=== PATIENT | female | born 1955 | race Caucasian/White ===

== ENCOUNTER 2018-02-23 09:22 | Emergency (ER) | payer MEDICAID, SELFPAY ==
[2018-02-23 09:23] VITALS: BP 150/83; PULSE 73; RESP 15; TEMP 36.3; O2SAT 99; BMI 29.5
--- NOTE | 2018-02-23 09:35 | CT_ITS ---
STUDY: CT ABDOMEN AND PELVIS WITHOUT CONTRAST REASON FOR EXAM: Female, 62 years old. Left flank pain. RADIATION DOSAGE (If Supplied By Facility): CTDIvol = ( 14.56 ) mGy, DLP = ( 687.23 ) mGycm TECHNIQUE: Transaxial images were obtained from the dome of the diaphragm to the symphysis pubis without oral contrast, and without intravenous contrast. Sagittal and coronal images were reconstructed. Individualized dose optimization techniques were used for this CT. COMPARISON: None. FINDINGS: Minimal increased linear markings at the right lung base suggestive of bibasilar atelectasis and/or scarring. Calcified granuloma in the right lower lobe. The visualized portions of the heart are within normal limits. Normal liver. The patient is status post cholecystectomy. Normal spleen. Inflammatory changes are seen within the mesenteric fat at the level of the pancreas. This inflammatory change is seen adjacent to the greater curvature of the stomach. This may represent changes compatible with pancreatitis or possibly gastritis with increased markings in the surrounding peritoneal fat. Clinical correlation is recommended. Normal bilateral adrenal glands. Normal right kidney. Normal left kidney. Normal visualized stomach. Normal small intestine. There are multiple sigmoid colonic diverticula consistent with diverticulosis. There is also evidence of diverticulosis involving the right hemicolon. The appendix is visualized and appears normal. Normal abdominal aorta. Normal inferior vena cava. Normal retroperitoneum. Normal urinary bladder. There is a left-sided inguinal hernia containing adipose tissue. There are degenerative changes of the visualized lumbar spine. CT/Abdomen/Pelvis without Cont IMPRESSION: Diverticulosis of the descending colon and sigmoid colon. Inflammatory changes seen in the region of the pancreas adjacent to the greater curvature of the stomach. This may represent changes secondary to pancreatitis. Clinical correlation is recommended. Electronically Signed: Chidi Garibay MD at 11:15 EST Tel [phone], Service support ,
--- NOTE | 2018-02-23 09:36 | ED.VISSUMM ---
- ER Visit Summary Date of Service: 02/23/18 Chief Complaint: Left abdominal and flank pain History of Present Illness: The patient is a 62 F who presents with 4 days of left-sided flank and abdominal pain. Patient states she has been having episodes of this pain intermittently for a year, and they normally last 1-2 days and resolve spontaneously. She has had 5-6 episodes in the last year. However this time her symptoms has lasted for 4 days. Pain is in the left flank and radiates around into the left abdomen. Patient has associated nausea but no vomiting. No diarrhea. No urinary symptoms. She has a normal bowel movement for a few days, and yesterday had a very small hard bowel movement. Patient tried a laxative without any relief. She has history of spina bifida but denies any issues with bowel or bladder function. Denies tobacco or alcohol use. Physical Examination: Vital signs: afebrile, hemodynamically stable, no hypoxia on room air General: well nourished, well developed, in no distress Skin: warm, dry, no rash, no pallor HEENT: normocephalic and atraumatic; PERRL, EOMI, moist mucous membranes Cardiovascular: regular rate and rhythm without murmurs, no peripheral edema, 2+ pulses all distal extremities Respiratory: No increased work of breathing, lungs are clear to auscultation bilaterally, no rales, rhonchi or wheezing Abdominal: Abdomen is soft, tender in the epigastrium, left abdomen, upper greater than lower, with normoactive bowel sounds, no guarding or rebound, no masses, positive left-sided CVA tenderness. No rash. MSK: Moves all extremities, no deformities, normal strength Neuro: Awake and alert, oriented ?4. No facial droop, sensation and motor function intact and symmetric Test Results: Abnormal Lab Results 02/23/18 02/23/18 02/23/18 09:45 09:45 09:58 WBC 10.2 RBC 5.53 H Hgb 14.0 Hct 44.7 MCV 80.8 L MCH 25.3 L MCHC 31.3 L RDW 15.3 H RDW Differential 45.4 H Plt Count 283 MPV 12.5 H Immature Gran % (Auto) 0.200 Neut % (Auto) 68.8 Lymph % (Auto) 20.0 [place] % (Auto) 8.5 Eos % (Auto) 2.1 Baso % (Auto) 0.4 Absolute Neuts (auto) 7.0 Absolute Lymphs (auto) 2.04 Total Counted Not Reportable Sodium 139 Potassium 4.6 Chloride 107 Carbon Dioxide 25.0 Anion Gap 7 BUN 14 Creatinine 0.86 Estim Creat Clear Calc 73.35 Est GFR (MDRD) Af Amer 86 Est GFR (MDRD) Non-Af 71 BUN/Creatinine Ratio 16.3 Glucose 104 Calcium 9.3 Total Bilirubin 0.80 AST 20 ALT 19 Alkaline Phosphatase 85 Total Protein 8.3 H Albumin 4.0 Globulin 4.3 H Albumin/Globulin Ratio 0.9 Lipase 159 Urine Color Yellow Urine Clarity Sl. Cloudy Urine pH 7.0 Ur Specific [place] 1.010 Urine Protein Negative Urine Glucose (UA) Normal Urine Ketones Negative Urine Occult Blood 10 H Urine Nitrite Negative Urine Bilirubin Negative Urine Urobilinogen Normal Ur Leukocyte Esterase 100 H Urine RBC 0-5 SEEN Urine WBC 10-25 SEEN Ur Squamous Epith Cells 0-5 SEEN Urine Bacteria 1+ Urine Mucus 0 SEEN Clinical Impression(s) from Imaging Studies Abdomen/Pelvis CT 02/23/18 09:35 IMPRESSION: Diverticulosis of the descending colon and sigmoid colon. Inflammatory changes seen in the region of the pancreas adjacent to the greater curvature of the stomach. This may represent changes secondary to pancreatitis. Clinical correlation is recommended. Electronically Signed: Chidi Garibay MD at 11:15 EST Tel [phone], Service support , Gallbladder Ultrasound 02/23/18 11:30 IMPRESSION: Nonvisualization of the gallbladder. Mild dilatation of the common bile duct. Calcific densities seen within the pancreas. Electronically Signed: Chidi Garibay MD at 14:07 EST Tel [phone], Service support , Medications Given Discontinued Medications Al Hydroxide/Mg Hydroxide (Mylanta Ii) 30 ml PO X1 ONE Stop: 02/23/18 14:36 Last Admin: 02/23/18 14:46 Dose: 30 ml Lidocaine HCl (Xylocaine Viscous) 15 ml PO X1 ONE Stop: 02/23/18 14:36 Last Admin: 02/23/18 14:46 Dose: 15 ml Morphine Sulfate () 4 mg IV X1 ONE Stop: 02/23/18 11:23 Last Admin: 02/23/18 11:27 Dose: 4 mg Morphine Sulfate () 4 mg IV X1 ONE Stop: 02/23/18 13:37 Last Admin: 02/23/18 13:43 Dose: 4 mg Ondansetron HCl (Zofran) 4 mg IV X1 ONE Stop: 02/23/18 11:23 Last Admin: 02/23/18 11:27 Dose: 4 mg Emergency Department Course and Treatment: Patient was offered and declined pain medication initially. However her pain became intolerable, and she was given morphine and Zofran. Patient is complaining of left lower abdominal and back pain, however her tenderness is in the left upper quadrant. Labs showed no leukocytosis, no electrolyte derangements, no hepatic dysfunction, and a normal lipase. Urinalysis was consistent with UTI, although patient did not have urinary symptoms. Negative for hematuria. A CT flank showed no kidney stones. It did show inflammatory changes around the pancreas and the stomach, concerning for pancreatitis versus gastritis. Gallbladder was not visualized. Patient states she never had a cholecystectomy, and thus right upper quadrant ultrasound was performed to better visualize the gallbladder and evaluate for any possible cholecystitis. Right upper quadrant ultrasound also showed absence of the gallbladder. Patient required second dose of morphine, still with only modest improvement in her pain. Patient has no history of pancreatitis, and with a normal lipase and symptoms for 4 days, it is unlikely pancreatitis. She was given a GI cocktail and had almost complete resolution of her symptoms, making gastritis the most likely cause of the inflammatory changes. Patient was discussed with Dr. Meza, will see her in the office tomorrow. Patient is to call first thing in the morning to get an appointment for tomorrow. Patient was given a prescription for omeprazole and sucralfate for further symptom control as well as Zofran for any further nausea. Because of the urinary findings, patient was started on Keflex. She was discharged home with her symptoms greatly improved and no further tenderness on exam. Treatment Plan: [] Disposition: [] Impression: Acute gastritis, UTI This note was generated with [employer] software. It may contain incorrect words, spelling, and punctuation that were not noted in review of the chart prior to signing ED Disposition - Plan for ED Patient: Disposition: Home or Assisted Living Chief Complaint: Abd Pain Instructions: ED PUD Vs Gastritis Prescriptions: Ondansetron [Zofran Odt] 4 mg PO Q8H PRN PRN #10 tab PRN Reason: Nausea Cephalexin [Keflex] 500 mg PO BID #14 cap RX: Omeprazole 20 mg PO BID #28 tablet. RX: Sucralfate 1 gm PO 4X/DAY #400 ml Referrals: Glenn Meza MD [STAFF PHYSICIAN] - 1 Day Care Physician,No Primary [Primary Care Provider] - Additional Instructions: Call Dr. Meza's office first thing in the morning and let them know that you were seen in the emergency department, we spoke to Dr. Meza, and he requested to be scheduled for an appointment tomorrow. Take the medications as prescribed. Avoid aspirin, Motrin (ibuprofen), naproxen (Aleve), alcohol and tobacco. If you have any worsening of your condition or any new concerning symptoms, please return immediately to the emergency department for another evaluation.
[2018-02-23 10:05] LABS: Mucous, Urine 0 SEEN /hpf (<or=2+)
[2018-02-23 10:08] LABS: Absolute Lymphocyte Count 2.04 X10^3/ul (0.83-4.51); Basophil# 0.04 X10^3/uL; Basophil% 0.4 % (0-1); Eosinophil# 0.21 X10^3/uL; Eosinophils% 2.1 % (0-5); Hematocrit 44.7 % (37-47); Lymphocyte # 2.04 X10^3/ul (4.0); Mean Corp Hgb Conc 31.3 g/gl (32-36); Mean Corpuscular Hgb 25.3 pg (27.0-32.0); Mean Corpuscular Volume 80.8 fL (81-99); Mean Platelet Vol. 12.5 fl (6.2-12.0); Monocyte# 0.87 X10^3/uL; Monocyte% 8.5 % (0-10); Neutrophil # 7.01 X10^3/uL (2.7-7.7); Neutrophil % 68.8 % (47-70); POSITIVE COUNT NO; POSITIVE DIFFERENTIAL NO; POSITIVE MORPHOLOGY NO; Platelet Count 283 K/mm3 (150-450); RBC Distribution Width CV 15.3 % (11.6-14.6); RBC Distribution Width SD 45.4 fl (35.1-43.9); Red Blood Count 5.53 M/mm3 (4.2-5.4); White Blood Count 10.2 K/mm3 (4.4-11.0)
[2018-02-23 10:09] LABS: Color, Urine Yellow (Yellow); Glucose, Dipstick Normal (Normal); Ketone-Dipstick Negative (Negative); Leukocyte Esterase-Dipstick 100 /ul (Negative); Nitrite-Dipstick Negative (Negative); Occult Blood-Urine 10 /ul (Negative); Protein-Dipstick Negative (Negative); Urine Bilirubin Dipstick Negative (Negative); Urine Clarity Sl. Cloudy (Clear); Urine Urobilinogen Normal (Normal)
[2018-02-23 10:15] LABS: Bacteria 1+ /hpf (None Seen); Red Blood Cells-Urine 0-5 SEEN /hpf (0-5); Squamous Epithelial Cells - UA 0-5 SEEN /hpf (5-10); White Blood Cells 10-25 SEEN /hpf (0-5)
[2018-02-23 10:22] LABS: ALB/GLOB Ratio 0.9 RATIO (0.9-2.4); AST(SGOT) 20 U/L (15-37); Alanine Aminotransfer ALT/SGPT 19 U/L (13-56); Alkaline Phosphatase 85 U/L (45-117); Anion Gap 7 (5-15); BUN 14 mg/dL (7-18); BUN/Creat Ratio 16.3 RATIO (10-20); Calcium,Total 9.3 mg/dL (8.5-10.1); Chloride 107 mmol/L (98-107); Creatinine, Serum 0.86 mg/dL (0.55-1.02); EST Glomerular Filtration Rate 71 mL/min (>60); Est Glom Filt Rate - Afr Amer 86 mL/min (>60); Estimated Creatinine Clearance 73.35 ml/min; Globulin 4.3 g/dL (2.2-4.2); Glucose 104 mg/dL (74-106); Lipase 159 U/L (73-393); Potassium 4.6 mmol/L (3.5-5.1); Protein, Total 8.3 g/dL (6.4-8.2); Sodium Level 139 mmol/L (136-145)
[2018-02-23 11:02] VITALS: BP 108/97; PULSE 70; RESP 14; O2SAT 98
[2018-02-23] MEDS: Morphine 4 MG/ML Syringe IV ×2 (11:27→13:43)
[2018-02-23] MEDS: Ondansetron 4 MG/2 ML Vial IV (11:27)
--- NOTE | 2018-02-23 11:30 | US_ITS ---
STUDY: ABDOMINAL ULTRASOUND - RIGHT UPPER QUADRANT REASON FOR VISIT: Female, 62 years old. Epigastric pain. TECHNIQUE: Ultrasound evaluation of the right upper quadrant was performed with real-time and static hagen-scale imaging. TECHNICAL QUALITY: Limited. Examination limited by bowel gas. COMPARISON: None. FINDINGS: Liver: The liver measures 16.2 cm. There is normal echogenicity of the liver. The bile ducts are within normal limits. There is hepatic color flow. The direction of portal flow is hepatopetal. There is no demonstrated mass lesion. Gallbladder: The gallbladder is not visualized. Common Bile Duct (C.B.D.): The common bile duct measures 6.7 mm. Pancreas: Normal size of the head, body and tail of the pancreas. There is normal echogenicity of the pancreas. Pancreatic calcifications. Right Kidney: Normal size of the right kidney. The right kidney measures 9.8 cm x 5.15 x 4.6 cm. Normal renal cortex. The right cortex measures 1.1 cm. There is no demonstrated renal mass or cyst. There is no right hydronephrosis. US/Gallbladder IMPRESSION: Nonvisualization of the gallbladder. Mild dilatation of the common bile duct. Calcific densities seen within the pancreas. Electronically Signed: Chidi Garibay MD at 14:07 EST Tel [phone], Service support ,
[2018-02-23 13:27] VITALS: BP 115/64; PULSE 67; RESP 15; O2SAT 96
[2018-02-23] MEDS: Mag Hydrox/Al Hydrox/Simeth 30 ML UDC PO (14:46)
[2018-02-23 15:00] VITALS: BP 121/60; PULSE 60; RESP 16; O2SAT 96
--- NOTE | 2018-02-23 15:31 | ED.DEP ---
ED Disposition - Plan for ED Patient: Disposition: Home or Assisted Living Chief Complaint: Abd Pain Instructions: ED PUD Vs Gastritis Prescriptions: Ondansetron [Zofran Odt] 4 mg PO Q8H PRN PRN #10 tab PRN Reason: Nausea Cephalexin [Keflex] 500 mg PO BID #14 cap Omeprazole 20 mg PO BID #28 tablet. Sucralfate 1 gm PO 4X/DAY #400 ml Referrals: Care Physician,No Primary [Primary Care Provider] - Glenn Meza MD [STAFF PHYSICIAN] - 1 Day Additional Instructions: Call Dr. Meza's office first thing in the morning and let them know that you were seen in the emergency department, we spoke to Dr. Meza, and he requested to be scheduled for an appointment tomorrow. Take the medications as prescribed. Avoid aspirin, Motrin (ibuprofen), naproxen (Aleve), alcohol and tobacco. If you have any worsening of your condition or any new concerning symptoms, please return immediately to the emergency department for another evaluation.
[2018-02-23 15:49] VITALS: BP 115/64
== END 2018-02-23 15:53 | disposition home or self-care (01) ==
PROVIDERS: Emergency Provider Emergency Medicine
DX: K29.00 Acute gastritis without bleeding (principal); N39.0 Urinary tract infection, site not specified; K57.30 Diverticulosis of large intestine without perforation or abscess without bleeding
CPT/HCPCS: 74176; 76705; 80053; 81001; 83690; 85025; 87086; 87088; 96374; 96375; 96376; 99284; A4216; J2405

== ENCOUNTER 2018-03-01 09:31 | Day surgery (SDC) | payer MEDICAID, SELFPAY ==
[2018-02-24 12:53] VITALS: BMI 29.5
--- NOTE | 2018-03-01 | EGD_PTH ---
PATIENT: SALINA ARAGON LOC: EN U#:[id number] AGE/SX: 62/F ROOM: RE03/01/[address]: [address]. Glenn Meza MD : 1955 BED: DIS: 03/01/2018 SPEC #: [id number] RECD: 03/01/18 11:15 STATUS: MELA AC #: [id number] KEVIN: 03/01/18 00:[address]: Glenn Meza DEPT: SURGICAL PATHOLOGY RECD BY: Efrain Richards ENTERED: 03/01/18 11:16 SP TYPE: EGD BIOPSY OTHR DR: No Primary Care Phys Tissues: A - Duodenum, NOS B - Gastric mucous membrane Procedures: Surgery Specimen Level IV HEADER OPERATION: [place] [place] DIAGNOSIS: Left upper quadrant abdominal pain TISSUE SUBMITTED: A - Duodenal biopsy, B - Antral biopsy and H. pylori MICROSCOPIC DIAGNOSIS A. Duodenum, biopsy: Minimal nonspecific chronic inflammation. B. Gastric antrum, biopsy: Moderate chronic gastritis. AM:evita 03/02/18 COMMENT B. The results of immunohistochemistry for Helicobacter pylori will be reported separately ([id number]). MICROSCOPIC DESCRIPTION Slides are reviewed. GROSS DESCRIPTION A - Received in fixative is one container labeled with the patient's name and designated duodenal biopsy. The specimen consists of one irregular fragment of light fink soft tissue that measures 0.4 x 0.2 x 0.1 cm. The specimen is totally submitted in one cassette. B - Received in fixative is one container labeled with the patient's name and designated antral biopsy. The specimen consists of one irregular fragment of light fink soft tissue that measures 0.5 x 0.2 x 0.1 cm. The specimen is totally submitted in one cassette. / SRINI:evita 03/01/18 TC:3 CPT: 62616 x2
[2018-03-01 09:50] VITALS: BP 111/71; PULSE 78; RESP 18; TEMP 37.3; O2SAT 98; BMI 29.3
[2018-03-01 10:45] VITALS: BP 105/58; BP 111/71; PULSE 81; RESP 16; TEMP 36.2; O2SAT 92
--- NOTE | 2018-03-01 10:45 | IMM_PTH ---
PATIENT: SALINA ARAGON LOC: EN U#:[id number] AGE/SX: 62/F ROOM: RE03/01/[address]: [address]. Glenn Meza MD : 1955 BED: DIS: 03/01/2018 SPEC #: [id number] RECD: 03/01/18 11:37 STATUS: MELA REQ #: [id number] KEVIN: 03/01/18 10:[address]: Glenn Meza DEPT: IMMUNOHISTOCHEMISTRY RECD BY: Christine Vazquez ENTERED: 03/01/18 11:38 SP TYPE: IMMUNO OTHR DR: No Primary Care Phys Tissues: B - Stomach, NOS Procedures: H Pylori (initial) PHYSICIAN & INSTITUTION [place] [id number] SPECIMEN INFORMATION: Tissue Source: A - Antral biopsy Clinical Info: Left upper quadrant abdominal pain Specimen Number: [id number] CPT code: 50715 METHODOLOGY: Deparaffinized sections of prefer/formalin-fixed tissue or PAP/DQ stained slides are incubated with monoclonal/polyclonal antibodies/oligonucleotide probes. Localization is made via biotin free immunoperoxidase method. Appropriate controls are performed and reacted as expected. Results on target cell population are indicated in the following table: RESULTS: ANTIBODY / CLONE RESULT Block A H Pylori (polyclonal) negative These tests were developed and their performance characteristics determined by [facility]. They may not have been cleared or approved by the U.S. Food and Drug Administration. The FDA has determined that such clearance or approval is not necessary. INTERPRETATION: A. Antral biopsy: Negative for Helicobacter pylori organisms. AM:evita 03/02/18
--- NOTE | 2018-03-01 10:46 | OP.ENDO_ITS ---
Patient Name: Concepcion Gotti Procedure Date: 03/01/2018 10:19 AM Date of : 1955 Age: 62 Procedure: Upper GI endoscopy Indications: Abdominal pain in the left upper quadrant Providers: Glenn Meza MD Medicines: See the Anesthesia note for documentation of the administered medications Patient Profile: This is a 62 year old female. Refer to note in patient chart for documentation of history and physical. Complications: No immediate complications. Procedure: Pre-Anesthesia Assessment: - Prior to the procedure, a History and Physical was performed, and patient medications and allergies were reviewed. The patient's tolerance of previous anesthesia was also reviewed. The risks and benefits of the procedure and the sedation options and risks were discussed with the patient. All questions were answered, and informed consent was obtained. Prior Anticoagulants: The patient has taken no previous anticoagulant or antiplatelet agents. ASA Grade Assessment: II - A patient with mild systemic disease. After reviewing the risks and benefits, the patient was deemed in satisfactory condition to undergo the procedure. After obtaining informed consent, the endoscope was passed under direct vision. Throughout the procedure, the patient's blood pressure, pulse, and oxygen saturations were monitored continuously. The gastroscope was introduced through the mouth, and advanced to the second part of duodenum. The upper GI endoscopy was accomplished without difficulty. The patient tolerated the procedure well. Scope In: 10:37:55 AM Scope Out: 10:41:56 AM Total Procedure Duration Time 0 hours 4 minutes 1 second Findings: A medium-sized hiatal hernia was present. No biopsies or other specimens were collected for this exam. A medium-sized hiatal hernia was found. The proximal extent of the gastric folds (end of tubular esophagus) was 36 cm from the incisors. The hiatal narrowing was 40 cm from the incisors. The Z-line was 36 cm from the incisors. One non-bleeding cratered gastric ulcer with no stigmata of bleeding was found in the prepyloric region of the stomach. The lesion was 10 mm in largest dimension. Biopsies were taken with a cold forceps for Helicobacter pylori testing. Diffuse moderately erythematous mucosa without active bleeding and with stigmata of bleeding was found in the first portion of the duodenum. Biopsies were taken with a cold forceps for histology. Impression: - Medium-sized hiatal hernia. No specimens collected. - Medium-sized hiatal hernia. - Non-bleeding gastric ulcer with no stigmata of bleeding. Biopsied. - Erythematous duodenopathy. Biopsied. Recommendation: - Await pathology results. - Repeat upper endoscopy in 6 weeks for surveillance. - Return to my office in 1 week. - Continue present medications. Procedure Code(s): --- Professional --- 86265, Esophagogastroduodenoscopy, flexible, transoral; with biopsy, single or multiple Diagnosis Code(s): --- Professional --- K44.9, Diaphragmatic hernia without obstruction or gangrene K25.9, Gastric ulcer, unspecified as acute or chronic, without hemorrhage or perforation K31.89, Other diseases of stomach and duodenum R10.12, Left upper quadrant pain CPT copyright 2017 [employer]. All rights reserved. The codes documented in this report are preliminary and upon oliver filter operator review may be revised to meet current compliance requirements. MD Glenn Baez MD 03/01/2018 10:45:53 AM This report has been signed electronically. Number of Addenda: 0 Note Initiated On: 03/01/2018 10:19 AM
[2018-03-01 10:50] VITALS: BP 111/71; BP 91/73; PULSE 81; RESP 14; O2SAT 92
[2018-03-01 10:55] VITALS: BP 108/69; BP 111/71; PULSE 83; RESP 14; TEMP 36.3; O2SAT 95
[2018-03-01 11:47] VITALS: BP 111/71
== END 2018-03-01 11:47 | disposition home or self-care (01) ==
LOC: EN 09:32 → AC 09:34
PROVIDERS: Referring Provider Surgery; Visit Provider Surgery
PROC: 0DJ08ZZ Inspection of Upper Intestinal Tract, Via Natural or Artificial Opening Endoscopic (ICD-10-PCS; CPT 43235; principal; 2018-03-01 10:40)
DX: K29.50 Unspecified chronic gastritis without bleeding (principal); K25.9 Gastric ulcer, unspecified as acute or chronic, without hemorrhage or perforation; K44.9 Diaphragmatic hernia without obstruction or gangrene; K31.89 Other diseases of stomach and duodenum; K21.9 Gastro-esophageal reflux disease without esophagitis; R10.12 Left upper quadrant pain; Z87.891 Personal history of nicotine dependence
CPT/HCPCS: 43239; 88305; 88342; J7120

== ENCOUNTER 2018-05-19 09:07 | Day surgery (SDC) | payer MEDICAID, SELFPAY ==
[2018-04-13 09:28] VITALS: BMI 29.3
[2018-05-19 09:26] VITALS: BP 118/62; PULSE 72; RESP 18; TEMP 36.8; O2SAT 99; BMI 28.8
--- NOTE | 2018-05-19 09:55 | PCM.HP.STD ---
Problem List (1) Gastric ulcer Status: Acute Qualifiers: Gastric ulcer chronicity: chronic Gastric ulcer complication status: without hemorrhage or perforation Qualified Code(s): K25.7 - Chronic gastric ulcer without hemorrhage or perforation History of Present Illness Date of Admission: 05/19/18 The patient is a 63 year old F for follow-up from a gastric ulcer. Patient was in the hospital with a gastric ulcer with some bleeding in February. Biopsies did not show any signs of H. pylori at this time she was treated conservatively and now presents for a follow-up upper endoscopy to confirm healing of gastric ulcers. Past Medical History Medical History: Medical History (Last Reviewed 05/19/18 @ 10:01 by Glenn Meza MD) Spina bifida (Acute) Q05.9 Abdominal pain (Acute) R10.9 Allergies No Known Allergies Allergy (Verified 05/18/18 14:33) Home Medications: Ambulatory Orders Medication Instructions Recorded omeprazole 40 mg capsule,delayed 40 mg PO DAILY #30 cap 05/03/18 release Surgical History: Surgical History (Last Reviewed 05/19/18 @ 10:01 by Glenn Meza MD) History of esophagogastroduodenoscopy (EGD) (Acute) Z98.890 03/01/2018 History of tubal ligation (Acute) Z98.51 Smoking Status: Former smoker Review of Systems Constitutional: Denies: Chills, Fever, Weight Change Cardiovascular: Denies: Chest Pain, Chest Pressure, Chest Tightness, Palpitations Respiratory: Denies: Cough, Hemoptysis, Shortness of breath at rest, Shortness of breath upon exertion, Wheezing Gastrointestinal: Denies: Abdominal Pain, Constipation, Diarrhea, Hematemesis, Nausea, Melena, Vomiting VTE Information - Inpt Only VTE Present on Admission: No VTE Mechan Device Prophylaxis: None VTE Pharm Prophylaxis ordered?: No Reason prophylaxis not ordered:: Treatment Not Indicated Patient Problems: Active and Suspected Problems (Last Reviewed 04/19/18 @ 12:55 by Glenn Meza MD) Gastric ulcer (Acute) - Physical Exam General: Alert, Oriented x3 Lungs: Clear to auscultation Cardiovascular: Regular rate, Regular Rhythm, No murmurs Abdomen: Bowel Sounds Present, Soft, Non Tender, Non-Distended Vital Signs Temp Pulse Resp BP Pulse Ox 98.3 F 72 18 118/62 99 05/19/18 09:26 05/19/18 09:26 05/19/18 09:26 05/19/18 09:26 05/19/18 09:26 Oxygen Delivery Method Room Air Weight: 201 lb 0.985 oz Body Mass Index (BMI) 28.8 Assessment/Plan All Active Problems (Last Reviewed 04/19/18 @ 12:55 by Glenn Meza MD) Gastric ulcer (Acute) History of esophagogastroduodenoscopy (EGD) (Acute) History of tubal ligation (Acute) Spina bifida (Acute) Abdominal pain (Acute) Plan will be to perform an upper endoscopy.
[2018-05-19 09:56] VITALS: BP 112/70; BP 118/62; PULSE 82; RESP 16; TEMP 36.2; O2SAT 96
[2018-05-19 09:59] VITALS: BP 118/62; BP 118/72; PULSE 72; RESP 16; O2SAT 94
--- NOTE | 2018-05-19 10:00 | IMM_PTH ---
PATIENT: SALINA ARAGON LOC: EN U#:[id number] AGE/SX: 63/F ROOM: RE05/19/[address]: Dr. Glenn Meza MD : 1955 BED: DIS: 05/19/2018 SPEC #: [id number] RECD: 05/19/18 14:07 STATUS: MELA REConstance #: [id number] KEVIN: 05/19/18 10:[address]: Glenn Meza DEPT: IMMUNOHISTOCHEMISTRY RECD BY: Christine Vazquez ENTERED: 05/19/18 14:07 SP TYPE: IMMUNO OTHR DR: No Primary Care Phys Tissues: Stomach, NOS Procedures: H Pylori (initial) PHYSICIAN & INSTITUTION [place] [id number] SPECIMEN INFORMATION: Tissue Source: Antral biopsy Clinical Info: History of gastric ulcer Specimen Number: [id number] CPT code: 84660 METHODOLOGY: Deparaffinized sections of prefer/formalin-fixed tissue or PAP/DQ stained slides are incubated with monoclonal/polyclonal antibodies/oligonucleotide probes. Localization is made via biotin free immunoperoxidase method. Appropriate controls are performed and reacted as expected. Results on target cell population are indicated in the following table: RESULTS: ANTIBODY / CLONE RESULT H Pylori (polyclonal) negative These tests were developed and their performance characteristics determined by [facility]. They may not have been cleared or approved by the U.S. Food and Drug Administration. The FDA has determined that such clearance or approval is not necessary. INTERPRETATION: Antral biopsy: Negative for Helicobacter pylori organisms. AM:evita 05/20/18
--- NOTE | 2018-05-19 10:00 | OP.ENDO_ITS ---
Patient Name: Concepcion Gotti Procedure Date: 05/19/2018 9:39 AM Date of : 1955 Age: 63 Procedure: Upper GI endoscopy Indications: Surveillance procedure, Chronic gastric ulcer Providers: Glenn Meza MD Medicines: See the Anesthesia note for documentation of the administered medications Patient Profile: This is a 63 year old female. Refer to note in patient chart for documentation of history and physical. Complications: No immediate complications. Procedure: Pre-Anesthesia Assessment: - Prior to the procedure, a History and Physical was performed, and patient medications and allergies were reviewed. The patient's tolerance of previous anesthesia was also reviewed. The risks and benefits of the procedure and the sedation options and risks were discussed with the patient. All questions were answered, and informed consent was obtained. Prior Anticoagulants: The patient has taken no previous anticoagulant or antiplatelet agents. ASA Grade Assessment: II - A patient with mild systemic disease. After reviewing the risks and benefits, the patient was deemed in satisfactory condition to undergo the procedure. After obtaining informed consent, the endoscope was passed under direct vision. Throughout the procedure, the patient's blood pressure, pulse, and oxygen saturations were monitored continuously. The gastroscope was introduced through the mouth, and advanced to the second part of duodenum. The upper GI endoscopy was accomplished without difficulty. The patient tolerated the procedure well. Scope In: 9:49:57 AM Scope Out: 9:53:26 AM Total Procedure Duration Time 0 hours 3 minutes 29 seconds Findings: The examined esophagus was normal. Localized minimal inflammation characterized by erythema was found in the prepyloric region of the stomach. Biopsies were taken with a cold forceps for Helicobacter pylori testing. There was no finding suspicious for recurrent gastric ulcers at this time. The examined duodenum was normal. No biopsies or other specimens were collected for this exam. Impression: - Normal esophagus. - Gastritis. Biopsied. - Normal examined duodenum. No specimens collected. Recommendation: - Discharge patient to home. - Resume previous diet. - Continue present medications. - Await pathology results. - Repeat upper endoscopy (date not yet determined) to evaluate the response to therapy. - Return to my office in 1 week. Procedure Code(s): --- Professional --- 39464, Esophagogastroduodenoscopy, flexible, transoral; with biopsy, single or multiple Diagnosis Code(s): --- Professional --- K29.70, Gastritis, unspecified, without bleeding K25.7, Chronic gastric ulcer without hemorrhage or perforation CPT copyright 2017 [employer]. All rights reserved. The codes documented in this report are preliminary and upon security guard dispatcher review may be revised to meet current compliance requirements. MD Glenn Baez MD 05/19/2018 10:00:31 AM This report has been signed electronically. Number of Addenda: 0 Note Initiated On: 05/19/2018 9:39 AM
--- NOTE | 2018-05-19 10:00 | EGD_PTH ---
PATIENT: SALINA ARAGON LOC: EN U#:[id number] AGE/SX: 63/F ROOM: RE05/19/[address]: Dr. Glenn Meza MD : 1955 BED: DIS: 05/19/2018 SPEC #: [id number] RECD: 05/19/18 10:51 STATUS: MELA AC #: [id number] KEVIN: 05/19/18 10:[address]: Glenn Meza DEPT: SURGICAL PATHOLOGY RECD BY: Ady Camarillo ENTERED: 05/19/18 13:23 SP TYPE: EGD BIOPSY OTHR DR: No Primary Care Phys Tissues: Gastric mucous membrane Procedures: Surgery Specimen Level IV HEADER OPERATION: EGD ([facility] [place]) PRE-OP DIAGNOSIS: History of gastric ulcer TISSUE SUBMITTED: Antral biopsy for H. pylori and pathology MICROSCOPIC DIAGNOSIS Gastric antrum, biopsy: Mild to moderate chronic gastritis. AM:evita 05/20/18 COMMENT The results of immunohistochemistry for Helicobacter pylori will be reported separately ([id number]). MICROSCOPIC DESCRIPTION Slides are reviewed. GROSS DESCRIPTION Received in fixative is one container labeled with the patient's name and designated antral biopsy. The specimen consists of one irregular fragment of light fink soft tissue that measures 0.6 x 0.2 x 0.1 cm. The specimen is totally submitted in one cassette. / AM:evita 05/19/18 TC:3 CPT: 93757
[2018-05-19 10:04] VITALS: BP 118/62; BP 120/67; PULSE 61; RESP 16; O2SAT 96
[2018-05-19 10:09] VITALS: BP 117/66; BP 118/62; PULSE 67; RESP 16; TEMP 36.2; O2SAT 95
[2018-05-19 10:27] VITALS: BP 118/62
== END 2018-05-19 10:36 | disposition home or self-care (01) ==
LOC: EN 09:09 → AC 09:10
PROVIDERS: Referring Provider Surgery; Visit Provider Surgery
PROC: 0DJ08ZZ Inspection of Upper Intestinal Tract, Via Natural or Artificial Opening Endoscopic (ICD-10-PCS; CPT 43235; principal; 2018-05-19 09:55)
DX: K29.50 Unspecified chronic gastritis without bleeding (principal); K25.7 Chronic gastric ulcer without hemorrhage or perforation; K21.9 Gastro-esophageal reflux disease without esophagitis; Z87.891 Personal history of nicotine dependence
CPT/HCPCS: 43239; 88305; 88342; J7120

== ENCOUNTER 2018-07-23 10:41 | Emergency (ER) | payer MEDICAID, SELFPAY ==
[2018-07-23 10:42] VITALS: BP 144/77; PULSE 69; RESP 19; TEMP 36.2; O2SAT 99; BMI 28.1
--- NOTE | 2018-07-23 10:58 | VDLE_ITS ---
Reason For Study: Pain LLE RIGHT LEFT CFV is compressible, spontaneous, phasic, GSV is normal. competent and demonstrates normal CFV is compressible, spontaneous, phasic, augmentation. competent, and demonstrates normal Procedure augmentation. Exam performed portable in ED. FV is compressible, spontaneous, phasic, A preliminary report was called and/or faxed competent and demonstrates normal to Dr. Arnold. augmentation. POP V is compressible, spontaneous, phasic, competent and demonstrates normal augmentation. T/P Trunk is compressible. PTV is compressible. LT PerV is compressible. Interpretation Summary Deep veins of the left lower extremity are patent and compressible segmentally. There is no evidence of left lower extremity deep vein thrombosis. Valvular competence appears intact within the proximal deep venous system on the left . The left greater saphenous vein appears patent and compressible segmentally. Ordering Physician: Margarito Arnold Performed By: Stephany Salgado RDCS, RVT
--- NOTE | 2018-07-23 10:58 | CT_ITS ---
STUDY: CTA CHEST REASON FOR EXAM: Female, 63 years old. Chest pain. Swelling of the left lower extremity. RADIATION DOSAGE (If Supplied By Facility): CTDIvol = ( 12.96 ) mGy, DLP = ( 434.72 ) mGycm TECHNIQUE: The examination was performed with the intravenous administration of 75 IV Isovue 370. Post-processing of the angiographic images was performed, with multiplanar reformation and 3D reconstruction. Individualized dose optimization techniques were used for this CT. COMPARISON: None. FINDINGS: Normal enhancement of the main pulmonary artery and right and left pulmonary arteries. Normal enhancement of the bilateral peripheral pulmonary arteries. There is no demonstrated pulmonary embolism. There is atherosclerotic calcification of the aortic arch with tortuosity. There is no demonstrated aortic dissection. Normal heart and pericardium. Normal mediastinum. Normal hilar regions. Normal visualized trachea and bronchi. The lungs are well expanded. Calcified granuloma in the right lower lobe. Mild increased markings at the lung bases suggestive of scarring. Normal pleura. Normal chest wall structures. There are degenerative changes of thoracic spine. Normal visualized upper abdomen. CT/CTA Chest W/WO Contrast IMPRESSION: Calcified granuloma in the right lower lobe with mild degree of linear scarring at the bases. There is no evidence of pulmonary embolism. Electronically Signed: Chidi Garibay, at 12:40 EDT , Service support ,
--- NOTE | 2018-07-23 10:58 | EKG12_ITS ---
Test Reason : CP Blood Pressure : / mmHG Vent. Rate : 057 BPM Atrial Rate : 057 BPM P-R Int : 164 ms QRS Dur : 092 ms QT Int : 434 ms P-R-T Axes : 045 041 088 degrees QTc Int : 422 ms Sinus bradycardia Poor-R Wave Progression Confirmed by JUAN OSUNA, JENNY ([id number]), editor news PATRIA ROTHMAN ([id number]) on 07/26/2018 10:42:09 AM Referred By: CLARISA Confirmed By:JENNY MARTINEZ MD
--- NOTE | 2018-07-23 11:09 | ED.DCSUM_ITS ---
- ER Visit Summary Date of Service: 07/23/18 Chief Complaint: Chest pain, left leg pain History of Present Illness: The patient is a 63 F who is had 2 weeks of chest pain. She describes as a tightness across her chest. Nothing makes it better or worse. She does feel short of breath with this. No nausea or vomiting. She denies a cough. She has also has left leg pain from the foot to the lower leg. She does note some swelling to the left lower foot as well. She denies any injuries. She states that she had a prior DVT in the 35 to 40 years ago. Not currently on any anticoagulation. She denies any other DVT or PE risk factors. She has no other cardiac risk factors. Physical Examination: Vital signs reviewed. HEENT exam unremarkable. Heart is regular rate and rhythm without murmurs. Lungs are clear to auscultation. Abdomen is soft and nontender. Extremities reveal no edema. She does have some tenderness to palpation over the left foot. There is no calf tenderness. No palpable cords. Peripheral pulses are equal. Skin exam normal. Neurologic exam normal. Test Results: EKG is sinus rhythm with rate of 57. No ST changes. Labs are normal. Duplex ultrasound of the left lower extremity reveals no DVT. CTA of the chest reveals no PE. There is a calcified granuloma Emergency Department Course and Treatment: The patient has no evidence of PE or DVT. Her heart enzymes and EKG are normal even after 2 weeks of pain. I do not feel she needs admitted for cardiac work-up. Patient will be given antibiotics for left foot cellulitis. She will need to follow-up with her primary care physician for further evaluation. Treatment Plan: [] Disposition: Discharge Impression: Chest pain, left foot cellulitis This note was generated with [employer] software. It may contain incorrect words, spelling, and punctuation that were not noted in review of the chart prior to signing ED Disposition - Plan for ED Patient: Referrals: Care Physician,No Primary [Primary Care Provider] -
[2018-07-23] MEDS: Aspirin 81 MG TAB.CHEW 324 MG PO (11:20)
[2018-07-23 11:37] LABS: Absolute Lymphocyte Count 2.74 X10^3/ul (0.83-4.51); Absolute Neutrophil Count 2.1 X10^3/uL (2.0-7.7); Basophil# 0.06 X10^3/uL; Eosinophil# 0.19 X10^3/uL; Eosinophils% 3.3 % (0-5); Hematocrit 41.1 % (37-47); Lymphocyte # 2.74 X10^3/ul (4.0); Lymphocyte % 47.8 % (19-41); Mean Corp Hgb Conc 31.6 g/gl (32-36); Mean Corpuscular Volume 82.2 fL (81-99); Mean Platelet Vol. 11.8 fl (6.2-12.0); Monocyte# 0.66 X10^3/uL; Monocyte% 11.5 % (0-10); Neutrophil # 2.07 X10^3/uL (2.7-7.7); Neutrophil % 36.2 % (47-70); Platelet Count 277 K/mm3 (150-450); RBC Distribution Width CV 15.1 % (11.6-14.6); RBC Distribution Width SD 45.8 fl (35.1-43.9); White Blood Count 5.7 K/mm3 (4.4-11.0)
[2018-07-23 11:38] LABS: POSITIVE COUNT NO; POSITIVE DIFFERENTIAL NO; POSITIVE MORPHOLOGY NO
[2018-07-23 11:41] VITALS: O2SAT 100
[2018-07-23 11:54] LABS: Anion Gap 6 (5-15); BUN 9 mg/dL (7-18); BUN/Creat Ratio 11.6 RATIO (10-20); Calcium,Total 8.9 mg/dL (8.5-10.1); Chloride 108 mmol/L (98-107); Creatinine, Serum 0.78 mg/dL (0.55-1.02); EST Glomerular Filtration Rate 79 mL/min (>60); Est Glom Filt Rate - Afr Amer 96 mL/min (>60); Estimated Creatinine Clearance 79.83 ml/min; Glucose 99 mg/dL (74-106); Potassium 3.8 mmol/L (3.5-5.1); Sodium Level 142 mmol/L (136-145)
[2018-07-23 12:53] VITALS: BP 127/51; PULSE 49; RESP 20; O2SAT 97
--- NOTE | 2018-07-23 13:08 | ED.DEP ---
ED Disposition - Plan for ED Patient: Disposition: Home or Assisted Living Instructions: ED Chest Pain NonCardiac Prescriptions: Cephalexin [Keflex] 500 mg PO Q12 #14 cap Referrals: Care Physician,No Primary [Primary Care Provider] - Domenico Rankin DO [NON CLINICAL AFFILIATE] -
[2018-07-23 13:26] VITALS: BP 129/53; PULSE 56; RESP 13; O2SAT 100
== END 2018-07-23 13:50 | disposition home or self-care (01) ==
PROVIDERS: Emergency Provider Emergency Medicine
DX: R07.9 Chest pain, unspecified (principal); L03.116 Cellulitis of left lower limb; Z72.0 Tobacco use
CPT/HCPCS: 71275; 80048; 84484; 85025; 93005; 93971; 99285; Q9967; A4216

== ENCOUNTER → 2018-12-08 08:43 | Outpatient (CLI) | payer MEDICAID, SELFPAY ==
--- NOTE | 2018-12-08 09:36 | RAD_ITS ---
HISTORY:Pt. has a large growth on elbow, started approx 8 months ago, Pt. has a large growth on elbow, started approx 8 months ago, COMPARISON: None FINDINGS: # of images incl. paperwork: 3 XR Elbow Min 3 Views: Right BONE AND JOINTS: No acute fracture or subluxation. There is a loose body that is seen at the lateral elbow joint and measures approximately 1 cm in length. Osteophytes are seen at the radial head as well as at the lateral epicondyles. SOFT TISSUES: Soft tissue density is seen adjacent to lateral epicondyle of the humerus. This area measures approximately 3.6 cm craniocaudad by 1.9 cm transverse. There is poorly visualized on the lateral view. This may be secondary to bursitis however I would recommend ultrasound of the area for further evaluation if clinically indicated No radiopaque foreign body. RAD/Elbow min 3 Views IMPRESSION: Soft tissue density at the lateral aspect of the elbow. I would recommend ultrasound to assess for solid versus cystic lesion at 2215 Reported and signed by: Sandra Thompson DO Electronically Signed: Sandra Thompson DO at 22:14 EDT Tel , Service support ,
== END ==
PROVIDERS: Referring Provider Nurse Practitioner Family; Visit Provider Nurse Practitioner Family
DX: M24.821 Other specific joint derangements of right elbow, not elsewhere classified (principal)
CPT/HCPCS: 73080

== ENCOUNTER → 2018-12-16 10:08 | Outpatient (CLI) | payer MEDICAID, SELFPAY ==
--- NOTE | 2018-12-16 10:22 | BI_ITS ---
MAMMOGRAPHY - BILATERAL SCREENING REASON FOR EXAM: Female, 63 years old. Routine annual screening examination. PERTINENT HISTORY: Non-contributory. TECHNIQUE: Digital bilateral breast stacie (3D mammographic acquisition) in the CC and MLO projections. 2-D mediolateral oblique (MLO) and craniocaudad (CC) views of both breasts were obtained. CAD: Full Field Digital Mammography with Computer Added Detection was performed. COMPARISON: None. Baseline examination. FINDINGS: Breast Composition: The breasts are almost entirely fatty. There are no dominant masses or suspicious calcifications. There is a 3 mm x 4 mm well-defined nodule in the upper lateral portion of the right breast. Correlation with ultrasound is recommended. Benign-appearing left axillary lymph nodes. No other significant abnormalities are identified. BI/SCREEN MAMM (CAD) W/STACIE BILAT IMPRESSION: 3 mm x 4 mm well-defined nodule in the upper lateral aspect of the right breast as described. Correlation with ultrasound is recommended. ASSESSMENT CATEGORY: BIRADS Category 0: Incomplete. Need additional imaging evaluation. A letter regarding these results will be sent to the patient by the facility within 30 days. Approximately 10% of breast cancers are not detected by mammography. A normal mammogram should not delay biopsy of a clinically suspicious abnormality. [id number] Electronically Signed: Chidi Garibay, at 12:31 EDT , Service support ,
--- NOTE | 2018-12-16 10:47 | ECHOD_ITS ---
Reason For Study: CHEST PAIN Procedure This was a 2D Doppler, Color Flow transthoracic echocardiogram. Exam performed in department. Left Ventricle Normal LV size. The estimated ejection fraction is 55 %. Normal diastology for age. No regional wall motion abnormalities noted. Right Ventricle Normal RV size. Normal systolic function. Atria The left atrium is mildly enlarged. Normal right atrium. No doppler evidence for ASD. Mitral Valve There is no mitral valve stenosis. Trivial mitral valve insufficiency. Tricuspid Valve There is no tricuspid stenosis. Pulmonary artery systolic pressure is 30 mmHg. Trivial tricuspid valve insufficiency. Aortic Valve Trisinus/trileaflet aortic valve. There is no aortic stenosis. No aortic valve insufficiency. Pulmonic Valve There is no pulmonic valvular stenosis. Trivial pulmonic valve insufficiency. Great Vessels Normal aortic root. Pericardium/Pleural No pericardial effusion. MMode/2D Measurements & Calculations LVIDd: 3.7 cm IVSd: 1.2 cm Ao root diam: 3.8 cm LVIDs: 2.7 cm LVPWd: 1.2 cm RVDd: 4.0 cm FS: 27.9 % LAV(MOD-bp): 60.7 ml LA A4 area: 18.8 cm2 LA dimension(2D): 4.2 cm LAV(MOD-bp) Indexed: 29.9 ml/m2 LAV(MOD-sp2): 65.0 ml LAV(MOD-sp4): 57.4 ml RA A4 area: 17.6 cm2 Time Measurements MV dec time: 0.33 sec Doppler Measurements & Calculations MV E max ameya: 47.6 cm/sec Lat Peak E' Ameya: 7.0 cm/sec Med Peak E' Ameya: 7.0 cm/sec MV A max ameya: 75.4 cm/sec E/E' lat: 6.8 E/E' med: 6.8 MV E/A: 0.63 Ao V2 max: 104.8 cm/sec LV V1 max: 82.0 cm/sec PA V2 max: 87.5 cm/sec Ao max P.4 mmHg LV V1 max P.7 mmHg TR max ameya: 246.9 cm/sec TR max P.5 mmHg Interpretation Summary The estimated ejection fraction is 55 %. Normal diastology for age. Trivial mitral valve insufficiency. Ordering Physician: Belinda Beltran Referring Physician: Neeta Hernández Performed By: Leonor Peguero RDCS, RVT
== END ==
PROVIDERS: Visit Provider Nurse Practitioner Family
DX: Z12.31 Encounter for screening mammogram for malignant neoplasm of breast (principal); N63.10 Unspecified lump in the right breast, unspecified quadrant
CPT/HCPCS: 77063; 77067; 93306

== ENCOUNTER → 2018-12-29 12:08 | Outpatient (CLI) | payer MEDICAID, SELFPAY ==
--- NOTE | 2018-12-29 12:12 | US_ITS ---
STUDY: SUPERFICIAL ULTRASOUND - LATERAL RIGHT ELBOW REASON FOR EXAM: Female, 63 years old. Palpable mass TECHNIQUE: A superficial ultrasound was performed with real-time and static hagen-scale imaging. COMPARISON: None. FINDINGS: Ultrasound evaluation of the area of concern shows a ill-defined subcutaneous fluid filled collection measuring 3.1 x 3.6 x 1.5 cm containing echogenic debris suggesting inflammation. Follow-up recommended to ensure resolution. This could be sampled under sonographic guidance. US/Other Unlisted US Procedure IMPRESSION: Likely inflammatory subcutaneous fluid collection corresponding to the palpable abnormality. Follow-up recommended to ensure resolution Electronically Signed: Edgar Regalado MD at 17:25 EDT , Service support ,
--- NOTE | 2018-12-29 12:12 | US_ITS ---
STUDY: ULTRASOUND BREAST - RIGHT REASON FOR EXAM: Female, 63 years old. Abnormal screening mammogram. TECHNIQUE: Axial and longitudinal images of the RIGHT breast were performed with a high resolution ultrasound transducer. COMPARISON: Comparison comparison is made with prior examination dated December 16, 2018. FINDINGS: RIGHT Breast: The mammographic abnormality corresponds to a 4 mm x 3 mm x 4 mm solid and cystic nodule at the 10:00 position of the breast at 4 cm from the nipple. This may represent a cyst with hemorrhage or proteinaceous material within it. A biopsy is recommended for further evaluation. US/Breast Limited Unilateral IMPRESSION: The mammographic abnormality corresponds to a 4 mm x 3 mm x 4 mm solid and cystic nodule at the 10:00 position breast at 4 cm from nipple. This is not a typical cyst. A biopsy is recommended for further evaluation. ASSESSMENT CATEGORY: BIRADS Category 4: Suspicious - Biopsy Should Be Considered. A letter regarding these results will be sent to the patient by the facility within 30 days. Electronically Signed: Chidi Garibay, at 9:02 EDT , Service support ,
== END ==
DX: N63.11 Unspecified lump in the right breast, upper outer quadrant (principal); R92.2 Inconclusive mammogram; M24.821 Other specific joint derangements of right elbow, not elsewhere classified
CPT/HCPCS: 76642; 76999

== ENCOUNTER → 2019-01-19 11:03 | Outpatient (REF) | payer MEDICAID, SELFPAY ==
[2019-01-19 09:56] VITALS: BMI 30.1
== END ==
LOC: CVS 11:03
PROVIDERS: PCP Nurse Practitioner Family; Referring Provider Specialist; Visit Provider Specialist
DX: R42 Dizziness and giddiness (principal)
CPT/HCPCS: 93270

== ENCOUNTER → 2019-01-27 06:12 | Outpatient (CLI) | payer MEDICAID, SELFPAY ==
[2019-01-19 09:56] VITALS: BMI 30.1
[2019-01-25 08:16] VITALS: BMI 30.1
--- NOTE | 2019-01-28 15:11 | STRESSREP_ITS ---
Stress Test Report Date: 01/27/2019 Procedure: Exercise tolerance test/imaging study Indications: Chest pain Consent: Per the patient Procedure: The patient exercised on a Maurice protocol for 6 minutes achieving a peak heart rate of 155 bpm (98 % predicted maximal heart rate) with a peak blood pressure 146/70 mmHg and a peak MET capacity of 7 METs. The baseline ECG demonstrated normal sinus rhythm. The peak exercise ECG demonstrated sinus tachycardia with no significant ischemic changes. EKG during recovery revealed [no significant ischemic changes [There were no cardiac dysrhythmias pretest, during exercise, or recovery]. The functional capacity was considered normal for age. Patient had mild chest heaviness with exertion. The examination was discontinued secondary to dyspnea. Impression: 1. Technically adequate (percent predicted maximal heart rate greater than 85%) exercise tolerance test 2. Stress test is negative for exercise-induced EKG changes of ischemia 3. The test test is positive for exercise-induced chest pain 4. Functional capacity is normal for age 5. Nuclear images pending Myocardial perfusion imaging study: Technique: The patient was injected with 12 mCi of technetium 99m Cardiolite and subsequently rest SPECT Cardiolite nuclear imaging was obtained in the horizontal long, vertical long, and short axis views. The patient exercised on a Maurice protocol. Please see above for details. The patient was injected with 36 mCi of technetium 99m Cardiolite and subsequently stress SPECT Cardiolite nuclear imaging was obtained in the horizontal long, vertical long, and short axis views. A gated Cardiolite study at peak stress was obtained. Interpretation: Rest and stress SPECT Cardiolite nuclear imaging status post realignment, normalization, and attenuation correction, demonstrates no significant fixed or reversible defect suggestive of significant ischemia or infarction. The gated Cardiolite study demonstrates septal and apical hypokinesis. The reported LVEF is 49%. Impression: 1. There is no evidence of significant ischemia or infarction. However patient had exercise-induced chest heaviness as mentioned above. 2. The gated Cardiolite study reports an LVEF of 49 %. This note was generated with [employer] software. It may contain incorrect words, spelling, and punctuation that were not noted in checking the note before signing.
== END ==
PROVIDERS: Referring Provider Specialist; Visit Provider Specialist
DX: R07.9 Chest pain, unspecified (principal)
CPT/HCPCS: 78452; 93017; A9500; A4216

== ENCOUNTER → 2019-02-01 13:41 | Outpatient (CLI) | payer MEDICAID, SELFPAY ==
[2019-01-25 08:16] VITALS: BMI 30.1
--- NOTE | 2019-02-01 | BRBX_PTH ---
PATIENT: SALINA ARAGON LOC: OPUS U#:[id number] AGE/SX: 69/F ROOM: RE02/01/[address]: Dr. Glenn Meza MD : 1955 BED: DIS: SPEC #: [id number] RECD: 02/01/19 14:42 STATUS: MELA AC #: [id number] KEVIN: 02/01/19 00:[address]: Glenn Meza DEPT: SURGICAL PATHOLOGY RECD BY: Oral Sheldon ENTERED: 02/02/19 09:50 SP TYPE: [facility], NOS Procedures: Surgery Specimen Level IV HEADER OPERATION: Ultrasound guided right breast biopsy PRE-OP DIAGNOSIS: Nodule at 10 o'clock +4 TISSUE SUBMITTED: Ultrasound guided right breast biopsy ISCHEMIC TIME: <1 minute FIXATION TIME: 28 hours MICROSCOPIC DIAGNOSIS Right breast nodule at 10 o'clock +4, ultrasound-guided core biopsy: Fragments of benign breast tissue with focal minimal fibrocystic changes. Negative for atypia or malignancy. See comment. SRINI:evita 02/03/19 COMMENT Correlation with clinical, radiologic findings and appropriate follow up are necessary. MICROSCOPIC DESCRIPTION Slides are reviewed. GROSS DESCRIPTION Received in fixative is one container labeled with the patient's name and designated right breast biopsy. The specimen consists of multiple fragments of fink-yellow fibroadipose tissue that in aggregate measure 2.5 x 1 x 0.2 cm. The entire specimen is submitted in one cassette. / SRINI:evita 02/02/19 TC:5 CPT: 21502
--- NOTE | 2019-02-01 13:44 | US_ITS ---
ULTRASOUND GUIDED CORE BIOPSY REASON FOR EXAM: Female, 63 years old. Ultrasound guided right breast biopsy. PERTINENT HISTORY: 4 mm x 5 mm x 4 mm solid and cystic nodule at the 10:00 position in the breast at 4 cm from the nipple. COMPARISON: Comparison is made with prior ultrasound dated December 29, 2018. TECHNIQUE: (All elements of maximal sterile barrier technique followed, including US elements as applicable) Under direct sonographic guidance, the surgeon performed core biopsies of the nodule. US/US Breast Biopsy 1st Lesion IMPRESSION: Ultrasound guided core biopsy of a mass in the RIGHT breast at at the 10:00 position in the breast of 4 cm from nipple without complication. Electronically Signed: Chidi Garibay, at 15:30 EDT , Service support ,
--- NOTE | 2019-02-01 14:47 | PCM.OPRPT ---
Problem List (1) Abnormal mammogram of right breast Status: Acute Report of Operation Date of Procedure: 02/01/19 Pre-Operative Diagnosis: Abnormal mammogram to right breast Post-Operative Diagnosis: Same Surgery/Procedure Performed:: Ultrasound-guided handheld mammotome biopsy to right breast Type of Anesthesia:: Local Description of Procedure: Patient was brought into the ultrasound unit. Ultrasound of the right breast revealed the lesion in question. I prepped the breast with chlorhexidine. I injected 1% lidocaine plain. Using ultrasound guidance I injected local posterior to the lesion. A skin argenis was made. I directed the hand-held mammotome needle posterior to the lesion using ultrasound guidance. Numerous biopsies of these were obtained. Actually had to inject more local under ultrasound guidance and do more repositioning of the hand-held mammotome needle and eventually I was able to eradicate this cystic area completely. Under ultrasound guidance I placed a small titanium clip. Sterile dressings were applied. The patient tolerated the procedure well. - Admit VTE Documentation VTE Present on Admission: No VTE Mechan Device Prophylaxis: None VTE Pharm Prophylaxis ordered?: No Reason prophylaxis not ordered:: Treatment Not Indicated
== END ==
PROVIDERS: Referring Provider Surgery; Visit Provider Surgery
DX: N63.11 Unspecified lump in the right breast, upper outer quadrant (principal)
CPT/HCPCS: 19083; 88305

== ENCOUNTER → 2019-03-01 08:54 | Outpatient (CLI) | payer MEDICAID, SELFPAY ==
[2019-03-01 08:51] VITALS: BMI 21.1
--- NOTE | 2019-03-01 08:56 | RAD_ITS ---
STUDY: X-RAY - RIGHT ELBOW REASON FOR EXAM: Female, 63 years old. Lump in lateral aspect of elbow. TECHNIQUE: 3 view(s) of the elbow. COMPARISON: December 08, 2018 FINDINGS: Normal visualized humerus, radius and ulna. Moderate arthrosis of the elbow joint. Ossific fragment measuring 12 mm projected laterally between the capitellum and radius likely representing an intra-articular osteochondral body. Soft tissue density unchanged on the lateral aspect of the elbow likely representing a large ganglion cyst. Ultrasound targeted to the elbow joint in the region of the palpable abnormality would be the next most appropriate imaging study. RAD/Elbow min 3 Views IMPRESSION: Stable soft tissue density laterally with osteoarthrosis of the elbow joint and probable intra-articular osteochondral body as described. Ultrasound targeted to the elbow joint is recommended for further evaluation. Electronically Signed: Jimmy Avalos MD at 11:18 EST , Service support ,
--- NOTE | 2019-03-01 14:38 | RAD_ITS ---
STUDY: X-RAY CHEST REASON FOR EXAM: Female, 63 years old. Chest pain. TECHNIQUE: PA and lateral views of the chest. COMPARISON: CTA chest July 23, 2018. FINDINGS: Stable calcified granuloma in the inferolateral right lung base. The lungs are otherwise clear and expanded. There is no demonstrated pleural abnormality. Normal size heart. Normal mediastinum and serjio. Normal visualized pulmonary arteries. Normal visualized aortic arch and descending thoracic aorta. There are stable degenerative changes and minor levoscoliosis of the visualized thoracic spine. 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 A small surgical clip is seen in the lower outer quadrant of the right breast. There is no demonstrated abnormality of the visualized soft tissue structures of the upper abdomen. RAD/Chest PA and Lateral IMPRESSION: No acute cardiopulmonary disease. Electronically Signed: Edgar Haywood MD at 17:20 EST , Service support ,
== END ==
PROVIDERS: Referring Provider Orthopaedic Surgery; Visit Provider Orthopaedic Surgery
DX: M19.021 Primary osteoarthritis, right elbow (principal); I47.2 Ventricular tachycardia; R93.1 Abnormal findings on diagnostic imaging of heart and coronary circulation; R07.9 Chest pain, unspecified
CPT/HCPCS: 71046; 73080

== ENCOUNTER 2019-03-11 09:57 | Day surgery (SDC) | payer MEDICAID, SELFPAY ==
[2019-03-01 13:15] VITALS: BMI 28.7
[2019-03-01 15:55] LABS: Absolute Lymphocyte Count 2.65 X10^3/uL (0.83-4.51); Absolute Neutrophil Count 2.9 X10^3/uL (2.0-7.7); Basophil# 0.06 X10^3/uL; Basophil% 0.9 % (0-1); Eosinophil# 0.22 X10^3/uL; Eosinophils% 3.4 % (0-5); Hematocrit 40.6 % (37-47); Hemoglobin 12.7 g/dL (12.0-15.0); Lymphocyte # 2.65 X10^3/ul (4.0); Lymphocyte % 40.5 % (19-41); Mean Corp Hgb Conc 31.3 g/dL (32-36); Mean Corpuscular Hgb 25.6 pg (27.0-32.0); Mean Corpuscular Volume 81.9 fL (81-99); Mean Platelet Vol. 12.7 fl (6.2-12.0); Monocyte# 0.66 X10^3/uL; Monocyte% 10.1 % (0-10); NRBC Flagged by Analyzer 0 % (0-5); Neutrophil # 2.93 X10^3/uL (2.7-7.7); Neutrophil % 44.8 % (47-70); Platelet Count 252 K/mm3 (150-450); RBC Distribution Width CV 14.9 % (11.6-14.6); RBC Distribution Width SD 43.8 fl (35.1-43.9); Red Blood Count 4.96 M/mm3 (4.2-5.4); White Blood Count 6.5 K/mm3 (4.4-11.0)
[2019-03-01 16:12] LABS: Anion Gap 7 (5-15); BUN 8 mg/dL (7-18); BUN/Creat Ratio 11.3 RATIO (10-20); Calcium,Total 8.7 mg/dL (8.5-10.1); Chloride 110 mmol/L (98-107); Creatinine, Serum 0.71 mg/dL (0.55-1.02); EST Glomerular Filtration Rate 88 mL/min (>60); Est Glom Filt Rate - Afr Amer 107 mL/min (>60); Glucose 91 mg/dL (74-106); Magnesium 2.1 mg/dL (1.6-2.6); Potassium 3.4 mmol/L (3.5-5.1); Sodium Level 141 mmol/L (136-145)
[2019-03-01 16:16] LABS: Prothrombin Time (Protime)PT. 12.9 SECONDS (11.7-14.9)
[2019-03-01 16:17] LABS: Partial Thromboplast Time 31.6 Seconds (24.1-36.2)
[2019-03-10 07:53] VITALS: BMI 28.7
--- NOTE | 2019-03-14 13:04 | CL.D_ITS ---
Patient Name: SALINA ARAGON Study Date: 03/11/2019 Performing: Sang gO MD Ht: 70 inches 178 cm : 1955 Wt: 200.9 lbs 91 kg Age: 63 Gender: female BSA: 2.09 PROCEDURE(S) PERFORMED IR71-CBR/COR/LV CLINICAL PROFILE AND INDICATIONS Indications: Suspected CAD Heart Failure: None Stress/Imaging Stress Test w/SPECT MPI: Yes Result: NegativeStress Test with SPECT MPI: Negative CAD Presentations: Other: chest pain, non sustained V tach CONCLUSIONS No significant CAD. 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 Preseved EF. No significant or MR. RECOMMENDATIONS DESCRIPTION OF PROCEDURE The patient arrived to the procedure lab. The risks and benefits of the procedure as well as a full d escription of our services here and current unavailability of surgical backup were fully explained to the patient and/or their significant other prior to the catheterization. The Timeout was completed, verifying the correct patient and procedure. The patient's procedural site was prepped and draped in the usual fashion. Local anesthetic was given subcutaneously to right radial region with Lidocaine 2% . Using a modified Seldinger technique, arterial access was obtained via the right radial artery, a 6 Fr sheath was inserted. Left Coronary Artery selective angiography was performed in multiple views u sing a 5 Fr. JL3.5 catheter. Right Coronary Artery selective angiography was then performed in multip le views using a 5 Fr. JR 4 catheter.The arterial sheath was pulled and a TR Band was applied for hem ostasis. 11CC OF AIR CORONARY ANGIOGRAPHY DOMINANCE: Right Dominant LEFT HEART ASSESSMENT Left Ventricular Ejection Fraction: by LV Gram 55 % Normal LV wall motion LEFT MAIN: Angiographically normal LEFT ANTERIOR DESCENDING ARTERY: No significant CAD angiographically. 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 CIRCUMFLEX ARTERY: Angiographically normal RIGHT CORONARY ARTERY: Angiographically normal VALVE FINDINGS: No Aortic Valve Stenosis No Mitral Insufficency COMPLICATIONS No Complications PROCEDURE MEDICATIONS Versed 1 mg IV Fentanyl 50 mcg IV Oxygen: 2 L/min via nasal cannula Heparin given IA 03/11/2019 11:47:02 Verapamil 2.5mg, Ntg 100mcgs, 3000 units of Heparin given IA 03/11/2019 11:47:02 SUMMARY OF HEMODYNAMIC DATA Time AIR REST ECG 10:31:51 AO 117/69 (86) SA 11:48:50 LV 129/-7, 6 11:52:51 LV 134/-9, 9 11:52:57 LV 126/-8, 8 11:53:37 LVp 125/0, 10 11:53:49 AOp 128/61 (88) 11:53:54 ECG 14:12:27 Signed By Sang Og MD On 03/14/2019 13:04:03 Sang Og MD
== END 2019-03-11 15:30 | disposition home or self-care (01) ==
LOC: CLSP 09:58
PROVIDERS: Referring Provider Specialist; Visit Provider Specialist
DX: Q24.5 Malformation of coronary vessels (principal); I47.2 Ventricular tachycardia; R07.9 Chest pain, unspecified; R94.39 Abnormal result of other cardiovascular function study; F17.200 Nicotine dependence, unspecified, uncomplicated
CPT/HCPCS: 36415; 80048; 83735; 85025; 85610; 85730; 93458; 99152; J7040; Q9967; C1769; C1894

== ENCOUNTER → 2019-06-15 12:13 | Outpatient (CLI) | payer MEDICAID, SELFPAY ==
[2019-04-12 13:27] VITALS: BMI 28.7
--- NOTE | 2019-06-15 12:54 | RAD_ITS ---
STUDY: X-RAY - LEFT WRIST REASON FOR EXAM: Female, 64 years old. LEFT WRIST PAIN -- NKI -- swelling to lateral aspect sometimes TECHNIQUE: 2 view(s) of the wrist were obtained. COMPARISON: None. FINDINGS: Normal visualized distal radius and ulna. There is degenerative arthrosis of the radiocarpal articulation. Normal distal radioulnar articulation. Normal carpal bones. There is degenerative arthrosis of the carpal articulations. Well-corticated ossific density dorsal wrist. There is degenerative arthrosis of the carpometacarpal articulation of the thumb. Normal second through fifth carpometacarpal articulations. Normal visualized metacarpal bones. The soft tissue structures are unremarkable. RAD/Wrist 2 Views IMPRESSION: Osteoarthrosis as above. No acute fracture. Electronically Signed: Tai Fermin MD at 17:05 EDT , Service support ,
== END ==
PROVIDERS: Referring Provider Nurse Practitioner Family; Visit Provider Nurse Practitioner Family
DX: M19.032 Primary osteoarthritis, left wrist (principal)
CPT/HCPCS: 73100

== ENCOUNTER → 2019-08-18 11:17 | Outpatient (CLI) | payer MEDICAID, SELFPAY ==
[2019-04-12 13:27] VITALS: BMI 28.7
--- NOTE | 2019-08-18 11:29 | US_ITS ---
STUDY: RENAL ULTRASOUND - COMPLETE REASON FOR EXAM: Female, 64 years old. GROSS HEMATURIA TECHNIQUE: Ultrasound evaluation of the kidneys was performed with real-time and static austin-scale imaging. COMPARISON: None. FINDINGS: RIGHT KIDNEY: Normal location of the right kidney, which is normal in size. The right kidney measures 11.4 cm x 5.4 cm x 5.8 cm. There is a normal cortex of the right kidney. The renal cortex measures 1.6 cm. There is no right renal mass or cyst. There are no right renal calculi. There is no right hydronephrosis. DISTAL RIGHT URETER: There is non-visualization of the distal right ureter. There is no demonstrated right ureterovesical junction calculus. There is no demonstrated right ureteral jet. LEFT KIDNEY: Normal location of the left kidney, which is normal in size. The left kidney measures 11.4 cm x 5.8 cm x 6.7 cm. There is a normal cortex of the left kidney. The renal cortex measures 1.7 cm. There is no left renal mass or cyst. There are no left renal calculi. There is no left hydronephrosis. DISTAL LEFT URETER: There is non-visualization of the distal left ureter. There is no demonstrated left ureterovesical junction calculus. There is no demonstrated left ureteral jet. BLADDER: The distended urinary bladder has a volume of 55 ml. There is a normal wall thickness of the distended urinary bladder. There is no demonstrated mass within the urinary bladder. There are no demonstrated bladder calculi. US/Kidney and Bladder IMPRESSION: Normal ultrasound of the kidneys and urinary bladder. Electronically Signed: Chidi Garibay, at 12:41 EDT , Service support ,
--- NOTE | 2019-08-18 11:29 | US_ITS ---
STUDY: ULTRASOUND OF THE FEMALE PELVIS - COMPLETE REASON FOR EXAM: Female, 64 years old. PAIN , HEMATURIA LMP: The patient is postmenopausal. TECHNIQUE: Transabdominal TECHNICAL QUALITY: Adequate. COMPARISON: None. FINDINGS: The uterus is anteverted and is in a midline position. The uterus measures 6.5 cm x 4 cm x 2.2 cm. Normal uterine cervix. The endometrium measures 2.2 mm in thickness, and is hyperechoic. There is no demonstrated endometrial mass. There is no demonstrated myometrial mass. I.U.D. - The patient does not have an I.U.D. The right ovary is visualized. The right ovary measures 1.6 cm x 2 cm x 1.3 cm. There is no right ovarian cyst or ovarian mass. There is no visualized right adnexal mass or complex lesion. There is normal arterial and normal venous vascularity. The left ovary is visualized. The left ovary measures 1.8 cm x 1.5 signed by 1.2 cm. There is no left ovarian cyst or ovarian mass. There is no visualized left adnexal mass or complex lesion. There is normal arterial and normal venous vascularity. There is no fluid in the cul-de-sac. The pre void volume of the bladder was 250 ml. Polycystic ovary disease: No. US/Pelvic (Non ) IMPRESSION: Normal female pelvis. Electronically Signed: Chidi Garibay, at 12:33 EDT , Service support ,
== END ==
DX: R31.9 Hematuria, unspecified (principal); R10.9 Unspecified abdominal pain
CPT/HCPCS: 76770; 76856

== ENCOUNTER → 2019-09-15 14:46 | Outpatient (CLI) | payer MEDICAID, SELFPAY ==
[2019-04-12 13:27] VITALS: BMI 28.7
--- NOTE | 2019-09-15 15:05 | CT_ITS ---
STUDY: LOW DOSE CT LUNG CANCER SCREENING REASON FOR EXAM: Female, 64 years old. TOBACCO USE, 1/2 PPD X 20 YRS RADIATION DOSAGE (If Supplied By Facility): CTDIvol = ( 4.02 ) mGy, DLP = ( 125.36 ) mGycm TECHNIQUE: No contrast was administered. Low dose technique was utilized (average mAS-38 and kVp 120). 1.25 mm axial source images with a slice interval of 1.25-mm were reconstructed in lung windows. 2.5 mm axial source images with a slice interval of 2.5-mm were reconstructed in lung windows. 5.0 mm axial source images with a slice interval of 5.0-mm were reconstructed in soft tissue windows. Nodule measured using lung windows on PACS and/or independent workstation with automated measurement of minimum and maximum diameter. Nodule measurement reported as average diameter rounded to the nearest whole number. Growth is defined as an increase ins size of greater than 1.5 mm. COMPARISON: 23 July 2018 Findings: There are no high risk focal pulmonary findings. There is a benign calcified granuloma in the right lower lung. There is a benign left lower lobe superior segment pulmonary cyst. There are minor emphysematous changes. Airways are patent. Mediastinal contents are normal. CT/Low Dose CT Lung Screening IMPRESSION: Lung RADS category 1. IMPORTANT NOTES FOR USE: ACR Lung-RADS Version 1.0 Assessment Categories Release Date: August 01, 2013 Category: Coded 0-4 bases on nodule(s) with highest degree of suspicion. Negative screen is defined as categories 1 and 2; a positive screen is defined as categories 3 and 4. Category 3 and 4A nodules that are unchanged on interval CT should be coded as category 2, and individuals returned to screening in 12 months. Category 4X: Category 3 or 4 nodules with additional imaging findings that increase the suspicion of lung cancer, such as spiculation, GGN that doubles in size in 1 year, enlarged lymph notes, etc. Category Modifiers: S (significant finding unrelated to lung cancer) and C (prior history of treated lung cancer) may be added to the 0-4 Lung-RADS Electronically Signed: Wolfgang Henry, at 17:41 EDT Tel , Service support ,
== END ==
DX: Z12.2 Encounter for screening for malignant neoplasm of respiratory organs (principal); Z87.891 Personal history of nicotine dependence
CPT/HCPCS: G0297

== ENCOUNTER → 2019-10-21 07:16 | Outpatient (CLI) | payer MEDICAID, SELFPAY ==
[2019-10-18 11:23] VITALS: BMI 28.3
--- NOTE | 2019-10-21 07:28 | MRI_ITS ---
STUDY: MRI BRAIN WITH AND WITHOUT CONTRAST REASON FOR EXAM: Female, 64 years old. chronic daily headaches and amp; dizziness x years TECHNIQUE: Standardized multiplanar fat and water weighted pulse sequences were obtained. 18ml Dotarem via IV was administered for the contrast portion of the examination. COMPARISON: None. FINDINGS: Normal size of the ventricles and extra-axial spaces for the patient''s age. Normal white matter tracts of the supratentorial brain. There is no evidence for recent intracranial ischemia or other cause of cytotoxic edema on diffusion weighted imaging (DWI). Normal T2* images of the brain without demonstrated susceptibility artifact. There is no demonstrated hemosiderin stain. Normal bilateral basal ganglia. Normal thalami. There is no extra-axial fluid accumulation. Normal flow voids within the major intracranial circulation suggesting patency by spin echo criteria. Normal venous enhancement. There is no enhancing intra-axial or extra-axial abnormality. Normal sella turcica, pituitary gland, infundibular stalk, optic chiasm and hypothalamus. Normal tectal plate and pineal gland. Normal midbrain, devon and medulla. Normal cerebellum. Normal basal cisterns. Normal bilateral temporal bones. Normal bilateral internal auditory canals. No demonstrated orbital abnormality, within the constraints of a routine brain study. Normal visualized paranasal sinuses. Normal calvarium and skull base. Normal visualized soft tissue structures. Normal visualized upper cervical spine. MRI/Brain W/WO Contrast IMPRESSION: Normal unenhanced and enhanced MRI of the brain. Electronically Signed: Malachi Smith MD at 9:16 EDT Tel , Service support ,
[2019-10-21 07:45] LABS: CREATININE FINGERSTICK 0.8 mg/dL (0.55-1.02); EGFR FINGERSTICK > 60.0000 mL/min (>60)
== END ==
PROVIDERS: Visit Provider Nurse Practitioner Family
DX: R51 Headache (principal); R55 Syncope and collapse
CPT/HCPCS: 70553; A9575

== ENCOUNTER → 2019-11-11 10:03 | Outpatient (CLI) | payer MEDICAID, SELFPAY ==
[2019-11-08 07:17] VITALS: BMI 29.0
[2019-11-11 11:55] VITALS: PULSE 66; PULSE 75; PULSE 80; PULSE 83; PULSE 84; PULSE 87; PULSE 90; PULSE 91; O2SAT 92; O2SAT 93; O2SAT 94; O2SAT 95; O2SAT 96
--- NOTE | 2019-11-11 13:08 | PCM.PSN.6M ---
PSN 6 Minute Walk Test - 6 Minute Walk Test 6 Minute Walk Test: 6 Minute Walk Test PSN:6-Minute Walk Test Start: 11/11/19 11:55 Freq: Status: Active Protocol: [id number].[id number] Document 11/11/19 11:55 [facility] (Rec: 11/11/19 11:59 [facility] [id number]) 6 Minute Walk Test Date Performed 11/11/19 Time Performed 10:00 Height 5 ft 10 in Weight: 89.358 kg Weight in Pounds 197.[address]: Haris Mckinney Assistive device used: None Pre-test Oxygen Delivery Method Room Air Pulse Ox (%) 96 Pulse Rate (60-100 beats/min) 75 Dyspnea Fernando Scale (0-10) 0 1st minute Oxygen Delivery Method Room Air Pulse Ox (%) 92 Pulse Rate (60-100 beats/min) 80 Dyspnea Fernando Scale (0-10) 0 Number of Rests Taken 0 2nd minute Oxygen Delivery Method Room Air Pulse Ox (%) 93 Pulse Rate (60-100 beats/min) 83 Dyspnea Fernando Scale (0-10) 1 Number of Rests Taken 0 3rd minute Oxygen Delivery Method Room Air Pulse Ox (%) 94 Pulse Rate (60-100 beats/min) 91 Dyspnea Fernando Scale (0-10) 2 Number of Rests Taken 0 4th minute Oxygen Delivery Method Room Air Pulse Ox (%) 94 Pulse Rate (60-100 beats/min) 84 Dyspnea Fernando Scale (0-10) 2 Number of Rests Taken 0 5th minute Oxygen Delivery Method Room Air Pulse Ox (%) 94 Pulse Rate (60-100 beats/min) 87 Dyspnea Fernando Scale (0-10) 2 Number of Rests Taken 0 6th minute Oxygen Delivery Method Room Air Pulse Ox (%) 92 Pulse Rate (60-100 beats/min) 90 Dyspnea Fernando Scale (0-10) 2 Number of Rests Taken 0 Post-test Oxygen Delivery Method Room Air Pulse Ox (%) 95 Pulse Rate (60-100 beats/min) 66 Dyspnea Fernando Scale (0-10) 0 Number of Rests Taken 0 Full Laps Walked 26 Partial Lap, Number of Tiles Walked 42 Total Distance Walked (ft) 1576 - Interpretation Interpretation: The patient was able to ambulate 1576 feet over the course of 6 minutes on room air with no assistive devices or breaks. The patient experienced no significant tachycardia, but did desaturate as low as 92%. These findings are consistent with a normal walking oximetry. - Recommendations Recommendations: No supplemental oxygen is indicated at this time.
== END ==
PROVIDERS: Referring Provider Internal Medicine Critical Care Medicine; Visit Provider Internal Medicine Critical Care Medicine
DX: J44.9 Chronic obstructive pulmonary disease, unspecified (principal)
CPT/HCPCS: 94618

== ENCOUNTER → 2019-11-22 08:43 | Outpatient (CLI) | payer MEDICAID, SELFPAY ==
[2019-04-12 13:27] VITALS: BMI 28.7
[2019-11-08 07:17] VITALS: BMI 29.0
--- NOTE | 2019-11-22 13:46 | PFT ---
INTRODUCTION: The patient is a 64-year-old female that presents for pulmonary function studies secondary to a diagnosis of COPD. Respiratory therapy reports good patient effort. Bronchodilators were used during testing. INTERPRETATION: Forced expiration spirometry demonstrates no evidence of a large airways obstructive ventilatory defect. There was no significant response to aerosolized bronchodilators. Spirograms are of good quality and plateau normally. Body plethysmography was performed and reveals a decreased TLC to 4.71 L, 78% of predicted, indicative of a mild restrictive ventilatory impairment. The remainder of the lung volumes are symmetrically reduced. Diffusing capacity by single breath CO is within normal limits at 89% of predicted. IMPRESSION: Isolated mild restrictive ventilatory impairment with preserved diffusing capacity.
== END ==
PROVIDERS: Referring Provider Nurse Practitioner Family; Visit Provider Nurse Practitioner Family
DX: J44.9 Chronic obstructive pulmonary disease, unspecified (principal)
CPT/HCPCS: 94060; 94726; 94729

== ENCOUNTER 2020-03-21 01:37 | Emergency (ER) | payer MEDICARE, MEDICAID, SELFPAY ==
[2019-12-07 08:33] VITALS: BMI 28.5
[2020-03-21 01:38] VITALS: BP 130/55; PULSE 68; RESP 20; TEMP 36.2; O2SAT 98; BMI 31.1
--- NOTE | 2020-03-21 01:44 | RAD_ITS ---
STUDY: X-RAY - RIGHT WRIST REASON FOR EXAM: Female, 64 years old. FELL 03/20 -- C/O PAIN AREA OF RT NAVICULAR TECHNIQUE: 4 view(s) of the wrist were obtained. COMPARISON: None. FINDINGS: There is demineralization of the radius and ulna. There is degenerative arthrosis of the radiocarpal articulation. There is degenerative arthrosis of the distal radioulnar articulation. Sequela of old fracture at the ulnar styloid process. There is demineralization of the carpal bones. There is degenerative arthrosis of the carpal articulations. There is degenerative arthrosis of the carpometacarpal articulation of the thumb. Normal second through fifth carpometacarpal articulations. Normal visualized metacarpal bones. The soft tissue structures are unremarkable. There is no demonstrated acute fracture. RAD/Wrist min 3 Views IMPRESSION: Diffuse osteopenia along with degenerative disease at the level of the wrist. No acute fracture or subluxation. Electronically Signed: Elzbieta Orosco MD at 2:07 EST , Service support ,
[2020-03-21] MEDS: oxyCODONE 5 MG Tablet PO (01:47)
--- NOTE | 2020-03-21 02:37 | ED.VIS.GEN ---
History of Present Illness Chief Complaint: Upper Extremity Injury Informant: Patient Onset: Yesterday Current Severity: Moderate Maximum Severity: Moderate Narrative: Patient present secondary to right wrist injury. She tripped and fell last evening injuring her right wrist. She denies any other injury from her fall. She did take Tylenol prior to arrival. - Past Medical History (1) COPD (chronic obstructive pulmonary disease) Status: Chronic Past Medical History - Allergies and Home Meds Allergies/Adverse Reactions: Allergies NSAIDS (Non-Steroidal Anti-Inflamma Allergy (Intermediate, Verified 12/07/19 11:22) Upset Stomach, ulcer Primary Care Physician: [facility] [place],Neeta Greenberg [Primary Care Provider] - Prior records reviewed: Yes Smoking Status: Former smoker Review of Systems General: Denies: Chills, Fever Eyes: Denies: Visual changes - bilaterally ENT: Denies: Bilateral ear pain Cardiovascular: Denies: Chest pain Respiratory: Denies: Dyspnea, Cough Gastrointestinal: Denies: Abdominal pain, Vomiting, Diarrhea Musculoskeletal: Reports: Extremity Pain. Denies: Neck pain Skin: Denies: Rash Neurological: Denies: Headache Hematologic: Denies: Easy bruising, Easy bleeding Allergy: Denies: Uticaria Physical Exam Vital Signs/Narrative: Vital Signs Temp Pulse Resp BP Pulse Ox 03/21/20 01:38 97.2 F L 68 20 H 130/55 H 98 Inital Vital Signs reviewed: Yes General: Well nourished, Well developed Head: Normocephalic ENT: Moist mucous membranes Neck: Supple, - - No C-spine tenderness. Cardiovascular: Regular rate, Regular rhythm Respiratory: No distress, CTA bilaterally Abdomen: Soft, Nontender Extremities: - - No tenderness of the shoulder or elbow. Tenderness along the radial aspect of the right wrist. Mild edema noted. Patient is able to wiggle fingers and has good sensation and cap refill distally. Neurological: Alert, Oriented x3 Psychological: Normal affect Diagnostic/Tx/Re-eval Impressions Wrist X-Ray 03/21/20 01:44 IMPRESSION: Diffuse osteopenia along with degenerative disease at the level of the wrist. No acute fracture or subluxation. Electronically Signed: Elzbieta Orosco MD at 2:07 EST , Service support , 03/21/20 01:44 Wrist min 3 Views [RAD] Stat - Medical Decision Making Right wrist x-ray per my interpretation reveals no acute fracture. Radiologist reading is reviewed. Patient was given oxycodone for pain here. She be placed in a Velcro wrist splint and given a prescription for Percocet. She was advised to have repeat x-rays performed in 1 week if not improving. ED Disposition - Plan for ED Patient: Disposition: Home or Assisted Living Diagnosis: Right wrist sprain Instructions: ED Wrist Sprain Prescriptions: Oxycodone HCl/Acetaminophen [Percocet 5/325] 1 tablet PO Q6H PRN PRN 3 Days #12 tablet PRN Reason: Pain Transmission Status: Sent to [facility] Referrals: [facility],Neeta Greenberg [Primary Care Provider] - 1 Week if not improving
[2020-03-21 03:02] VITALS: PULSE 77; RESP 20
== END 2020-03-21 03:03 | disposition home or self-care (01) ==
PROVIDERS: Emergency Provider Emergency Medicine
DX: S63.501A Unspecified sprain of right wrist, initial encounter (principal); W01.0XXA Fall on same level from slipping, tripping and stumbling without subsequent striking against object, initial encounter; Y93.9 Activity, unspecified; Y92.9 Unspecified place or not applicable; Y99.9 Unspecified external cause status; J44.9 Chronic obstructive pulmonary disease, unspecified; Z87.891 Personal history of nicotine dependence
CPT/HCPCS: 73110; 99283

== ENCOUNTER → 2020-07-19 09:56 | Outpatient (CLI) | payer MEDICAID, SELFPAY ==
[2020-07-19 11:29] LABS: Absolute Lymphocyte Count 2.43 X10^3/uL (0.83-4.51); Absolute Neutrophil Count 2.6 X10^3/uL (2.0-7.7); Basophil# 0.04 X10^3/uL; Basophil% 0.7 % (0-1); Eosinophils% 3.4 % (0-5); Hematocrit 44.9 % (37-47); Hemoglobin 13.6 g/dL (12.0-15.0); Lymphocyte # 2.43 X10^3/ul (0.83-4.51); Lymphocyte % 40.9 % (19-41); Mean Corp Hgb Conc 30.3 g/dL (32-36); Mean Corpuscular Hgb 25.3 pg (27.0-32.0); Mean Corpuscular Volume 83.5 fL (81-99); Mean Platelet Vol. 12.5 fl (6.2-12.0); Monocyte# 0.62 X10^3/uL; Monocyte% 10.4 % (0-10); NRBC Flagged by Analyzer 0 % (0-5); Neutrophil # 2.64 X10^3/uL (2.7-7.7); Neutrophil % 44.4 % (47-70); Platelet Count 289 K/mm3 (150-450); RBC Distribution Width CV 15.7 % (11.6-14.6); RBC Distribution Width SD 47.9 fl (35.1-43.9); Red Blood Count 5.38 M/mm3 (4.2-5.4); White Blood Count 5.9 K/mm3 (4.4-11.0)
[2020-07-19 12:19] LABS: ALB/GLOB Ratio 0.9 RATIO (0.9-2.4); AST(SGOT) 10 U/L (15-37); Alanine Aminotransfer ALT/SGPT 16 U/L (13-56); Albumin, Serum 3.7 g/dL (3.2-5.0); Alkaline Phosphatase 111 U/L (45-117); Anion Gap 3 (5-15); BUN 9 mg/dL (7-18); BUN/Creat Ratio 12.5 RATIO (10-20); Calcium,Total 8.8 mg/dL (8.5-10.1); Chloride 108 mmol/L (98-107); Cholesterol 203 mg/dL (200); Creatinine, Serum 0.72 mg/dL (0.55-1.02); EST Glomerular Filtration Rate 87 mL/min (>60); Est Glom Filt Rate - Afr Amer 105 mL/min (>60); Globulin 4.1 g/dL (2.2-4.2); Glucose 98 mg/dL (74-106); High Density Lipoprotein 44 mg/dL; Potassium 3.9 mmol/L (3.5-5.1); Protein, Total 7.8 g/dL (6.4-8.2); Sodium Level 140 mmol/L (136-145); Thyroid Stim Hormone (TSH) 0.99 uIU/mL (0.358-3.74); Triglycerides 150 mg/dL; Very Low Density Lipoprotein 30 mg/dL (5-40)
[2020-07-20 12:24] LABS: Alpha Antitrypsin Serum 159 mg/dL (101-187)
== END ==
LOC: LAB 10:01
DX: J44.9 Chronic obstructive pulmonary disease, unspecified (principal); R53.83 Other fatigue; G47.00 Insomnia, unspecified; E78.5 Hyperlipidemia, unspecified
CPT/HCPCS: 36415; 80053; 80061; 82103; 84443; 85025

== ENCOUNTER → 2020-08-02 10:27 | Outpatient (CLI) | payer MEDICAID, SELFPAY ==
[2020-08-02 11:15] LABS: Vitamin B12 317 pg/mL (211-911)
[2020-08-02 11:49] LABS: Iron 67 ug/dL (50-170); Iron Binding Capacity,Total 355 ug/dL (250-450); PERCENT IRON SATURATION 18.9 % (15.0-55.0)
[2020-08-06 17:21] LABS: Vitamin D 1,25-Dihydroxy 52.8 pg/mL (19.9-79.3)
== END ==
PROVIDERS: Referring Provider Nurse Practitioner Adult Health
DX: R53.83 Other fatigue (principal)
CPT/HCPCS: 36415; 82607; 82652; 82746; 83540; 83550

== ENCOUNTER → 2020-12-21 10:30 | Outpatient (CLI) | payer MEDICAID, SELFPAY ==
--- NOTE | 2020-12-21 10:34 | EKG12_ITS ---
Test Reason : CP Blood Pressure : / mmHG Vent. Rate : 062 BPM Atrial Rate : 062 BPM P-R Int : 172 ms QRS Dur : 084 ms QT Int : 420 ms P-R-T Axes : 039 -15 024 degrees QTc Int : 426 ms Normal sinus rhythm Poor R wave progression Confirmed by JUAN OSUNA, JENNY ([id number]), editor house organ PATRIA ROTHMAN ([id number]) on 12/21/2020 1:06:34 PM Referred By: [facility] Confirmed By:JENNY MARTINEZ MD
[2020-12-21 13:03] LABS: Absolute Lymphocyte Count 2.49 X10^3/uL (0.83-4.51); Basophil# 0.06 X10^3/uL; Basophil% 1.1 % (0-1); Eosinophil# 0.22 X10^3/uL; Hematocrit 43.4 % (37-47); Hemoglobin 13.5 g/dL (12.0-15.0); Lymphocyte # 2.49 X10^3/ul (0.83-4.51); Lymphocyte % 44.8 % (19-41); Mean Corp Hgb Conc 31.1 g/dL (32-36); Mean Corpuscular Volume 83.6 fL (81-99); Mean Platelet Vol. 12.1 fl (6.2-12.0); Monocyte# 0.74 X10^3/uL; Monocyte% 13.3 % (0-10); NRBC Flagged by Analyzer 0 % (0-5); Neutrophil # 2.04 X10^3/uL (2.7-7.7); Neutrophil % 36.6 % (47-70); Platelet Count 286 K/mm3 (150-450); RBC Distribution Width CV 15.8 % (11.6-14.6); RBC Distribution Width SD 47.6 fl (35.1-43.9); Red Blood Count 5.19 M/mm3 (4.2-5.4); White Blood Count 5.6 K/mm3 (4.4-11.0)
[2020-12-21 13:39] LABS: ALB/GLOB Ratio 0.8 RATIO (0.9-2.4); AST(SGOT) 10 U/L (15-37); Alanine Aminotransfer ALT/SGPT 23 U/L (13-56); Albumin, Serum 3.6 g/dL (3.2-5.0); Alkaline Phosphatase 114 U/L (45-117); Anion Gap 4 (5-15); BUN 17 mg/dL (7-18); BUN/Creat Ratio 18.3 RATIO (10-20); CPK Total, Creatine Kinase 43 U/L (26-192); CRP < 2.90 mg/L (0.0-3.0); Chloride 107 mmol/L (98-107); Creatinine, Serum 0.93 mg/dL (0.55-1.02); EST Glomerular Filtration Rate 64 mL/min (>60); Est Glom Filt Rate - Afr Amer 78 mL/min (>60); Globulin 4.4 g/dL (2.2-4.2); Glucose 112 mg/dL (74-106); Magnesium 2.2 mg/dL (1.6-2.6); Potassium 4.3 mmol/L (3.5-5.1); Sodium Level 139 mmol/L (136-145); Thyroid Stim Hormone (TSH) 0.87 uIU/mL (0.358-3.74)
== END ==
DX: R07.9 Chest pain, unspecified (principal)
CPT/HCPCS: 36415; 80053; 82550; 83735; 84443; 85025; 86140; 93005

== ENCOUNTER → 2021-01-09 09:41 | Outpatient (CLI) | payer MEDICARE, SELFPAY ==
[2021-01-09 10:20] LABS: Absolute Lymphocyte Count 2.68 X10^3/uL (0.83-4.51); Absolute Neutrophil Count 3.1 X10^3/uL (2.0-7.7); Basophil# 0.08 X10^3/uL; Basophil% 1.2 % (0-1); Eosinophil# 0.18 X10^3/uL; Eosinophils% 2.6 % (0-5); Lymphocyte # 2.68 X10^3/ul (0.83-4.51); Lymphocyte % 39.3 % (19-41); Mean Corp Hgb Conc 31.7 g/dL (32-36); Mean Corpuscular Hgb 25.9 pg (27.0-32.0); Mean Corpuscular Volume 81.7 fL (81-99); Mean Platelet Vol. 11.8 fl (6.2-12.0); Monocyte# 0.73 X10^3/uL; Monocyte% 10.7 % (0-10); NRBC Flagged by Analyzer 0 % (0-5); Neutrophil # 3.13 X10^3/uL (2.7-7.7); Neutrophil % 45.9 % (47-70); Platelet Count 278 K/mm3 (150-450); RBC Distribution Width CV 15.5 % (11.6-14.6); RBC Distribution Width SD 46.3 fl (35.1-43.9); Red Blood Count 5.02 M/mm3 (4.2-5.4); White Blood Count 6.8 K/mm3 (4.4-11.0)
[2021-01-10 14:46] LABS: ANTINUCLEAR ANTIBODIES DIRECT Negative (Negative)
== END ==
DX: L03.312 Cellulitis of back [any part except buttock and flank] (principal)
CPT/HCPCS: 36415; 85025; 86038

== ENCOUNTER → 2021-01-22 10:24 | Outpatient (CLI) | payer MEDICARE, MEDICAID, SELFPAY ==
[2021-01-22 10:55] LABS: Platelet Count 297 K/mm3 (150-450); RET-HE 29.1 pg (30-35); Reticulocyte Count 1.09 % (0.5-1.5)
[2021-01-22 11:32] LABS: Ferritin 39 ng/mL (8-252)
[2021-01-23 12:09] LABS: SJOGREN'S Anti-SS-A test < 0.2 AI (0.0-0.9)
[2021-01-23 13:18] LABS: SJOGREN'S Anti-SS-B test < 0.2 AI (0.0-0.9)
== END ==
DX: L56.8 Other specified acute skin changes due to ultraviolet radiation (principal); R74.8 Abnormal levels of other serum enzymes
CPT/HCPCS: 36415; 82668; 82728; 85045; 86235

== ENCOUNTER → 2021-03-05 06:43 | Outpatient (CLI) | payer MEDICARE, MEDICAID, SELFPAY ==
--- NOTE | 2021-03-05 06:45 | CT_ITS ---
STUDY: LOW DOSE CT LUNG CANCER SCREENING REASON FOR EXAM: Female, 65 years old. Smoker and gt; 30 pack years RADIATION DOSAGE (If Supplied By Facility): CTDIvol = ( 4.02 ) mGy, DLP = ( 125.36 ) mGycm TECHNIQUE: No contrast was administered. Low dose technique was utilized (average mAS-38 and kVp 120). 1.25 mm axial source images with a slice interval of 1.25-mm were reconstructed in lung windows. 2.5 mm axial source images with a slice interval of 2.5-mm were reconstructed in lung windows. 5.0 mm axial source images with a slice interval of 5.0-mm were reconstructed in soft tissue windows. Nodule measured using lung windows on PACS and/or independent workstation with automated measurement of minimum and maximum diameter. Nodule measurement reported as average diameter rounded to the nearest whole number. Growth is defined as an increase ins size of greater than 1.5 mm. COMPARISON: Comparison is made with prior study dated 09/15/2019. NODULES: Stable 1.5 mm noncalcified nodule in the peripheral posterior aspect of the right upper lobe as seen on axial image #29. Emphysema: Mild degree of emphysematous changes. Stable 1.7 cm cyst in the posterior medial aspect of the superior segment of the left lower lobe. Linear scarring seen at the right lung base as well as in the lingular segment of the left upper lobe. Stable calcified granuloma in the right lower lobe. Endobronchial lesion: None Aorta: Minimal atherosclerotic plaque at the level of the aortic arch. Coronary arteries: Unremarkable Heart: Unremarkable Pulmonary artery: Unremarkable Mediastinal nodes: Unremarkable Other chest and abdominal findings: CT/Low Dose CT Lung Screening IMPRESSION: Lung-RADS category 2 - Continue annual screening with LDCT in 12 months. IMPORTANT NOTES FOR USE: ACR Lung-RADS Version 1.1 Assessment Categories Release Date: 2018 Category: Coded 0-4 bases on nodule(s) with highest degree of suspicion. Negative screen is defined as categories 1 and 2; a positive screen is defined as categories 3 and 4. Category 3 and 4A nodules that are unchanged on interval CT should be coded as category 2, and individuals returned to screening in 12 months. Category 4X: Category 3 or 4 nodules with additional imaging findings that increase the suspicion of lung cancer, such as spiculation, GGN that doubles in size in 1 year, enlarged lymph notes, etc. Category Modifiers: S (significant finding unrelated to lung cancer) Electronically Signed: Chidi Garibay MD at 9:20 EST , Service support ,
--- NOTE | 2021-03-05 06:46 | CT_ITS ---
We are attempting to reach an attending provider to discuss findings. An addendum with communication details will be sent when the communication is complete. STUDY: CT SOFT TISSUE NECK WITH CONTRAST REASON FOR EXAM: Female, 65 years old. ENLARGED LYMPH NODES RADIATION DOSAGE (If Supplied By Facility): CTDIvol = ( 21.77 ) mGy, DLP = ( 641.93 ) mGycm TECHNIQUE: The patient was scanned in a multi-detector CT scanner. High resolution transaxial imaging was performed following intravenous administration of IV 75mL Isovue-300. Sagittal and coronal images were reconstructed. Individualized dose optimization techniques were used for this CT. COMPARISON: None. FINDINGS: There is diffuse enlargement of the right internal jugular vein with a large intraluminal thrombus in its proximal portion. This extends into the right subclavian vein. Normal bilateral parotid glands. Normal bilateral lay midwife spaces. Normal bilateral parapharyngeal spaces. Normal bilateral carotid spaces. Normal bilateral sublingual and submandibular glands and spaces. Normal visualized nasopharynx. Normal retropharyngeal space. Normal perivertebral space. Normal visualized bilateral faucial tonsils. The visualized tongue, tongue base and oropharynx are normal. The visualized cervical lymph nodes (levels I-) are within normal size limits, and maintain normal morphology. There is no demonstrated solid or cystic mass lesion. There is no abnormal contrast enhancement. Normal epiglottis, bilateral vallecula and hypopharynx. The pre-epiglottic and paraglottic adipose spaces are normal. Normal visualized bilateral piriform sinuses, aryepiglottic folds, vocal cords, and arytenoid-cricoid articulations. Normal subglottic trachea. Normal bilateral lobes of the thyroid gland. Normal visualized pulmonary apices. Normal visualized paranasal sinuses. There is multilevel degenerative changes of the cervical spine. 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 Electronically Signed: Chidi Garibay MD at 9:30 EST , Service support ,
== END ==
PROVIDERS: Referring Provider Nurse Practitioner Adult Health; Visit Provider Nurse Practitioner Adult Health
DX: F17.210 Nicotine dependence, cigarettes, uncomplicated (principal); R59.0 Localized enlarged lymph nodes
CPT/HCPCS: 70491; 71271; Q9967; A4216

== ENCOUNTER 2021-05-08 11:07 | Outpatient (CLI) | payer MEDICARE, MEDICAID, SELFPAY ==
--- NOTE | 2021-05-08 11:12 | RAD_ITS ---
EXAM: XR CERVICAL SPINE, 4 OR 5 VIEWS CLINICAL INDICATION: CERVICAL RIB RIGHT IJ SC DVT TECHNIQUE: Frontal, lateral and oblique views of the cervical spine. This report was created using Virtual 3-D Display for Smartphones report generation technology. COMPARISON: None. FINDINGS: VERTEBRAE: C3 to C7: Loss of intervertebral disc height. There is endplate spondylosis of the vertebral body. Normal central canal and intervertebral neuroforamina. There is bilateral facet arthropathy. Preservation of the normal cervical lordosis. OTHER BONES/JOINTS: No visualized cervical rib. DISC SPACES: Unremarkable. Disc spaces are maintained. SOFT TISSUES: Unremarkable. No prevertebral soft tissue widening. LUNG APICES: Clear. RAD/Cerv Spine 2 or 3 Views IMPRESSION: 1. C3 to C7: Loss of intervertebral disc height. There is endplate spondylosis of the vertebral body. Normal central canal and intervertebral neuroforamina. There is bilateral facet arthropathy. 2. No visualized cervical rib. Electronically Signed: Yonatan Tinajero MD at 21:01 EST Reading Location ID and State: [facility] / [place] , Service support ,
== END 2021-05-08 23:59 | disposition short-term general hospital (02) ==
PROVIDERS: Referring Provider Internal Medicine Hematology & Oncology; Visit Provider Internal Medicine Hematology & Oncology
DX: I82.C21 Chronic embolism and thrombosis of right internal jugular vein (principal); M46.92 Unspecified inflammatory spondylopathy, cervical region; M47.812 Spondylosis without myelopathy or radiculopathy, cervical region
CPT/HCPCS: 72040

== ENCOUNTER 2021-05-22 09:23 | Outpatient (CLI) | payer MEDICARE, MEDICAID, SELFPAY | END 2021-05-22 23:59 | disposition home or self-care (01) | LOC: PSN 09:25 | PROVIDERS: Referring Provider Nurse Practitioner Family; Visit Provider Nurse Practitioner Family | DX: I47.2 Ventricular tachycardia (principal); R00.1 Bradycardia, unspecified | CPT/HCPCS: 93225; 93226 ==

== ENCOUNTER 2021-05-28 11:22 | Outpatient (CLI) | payer MEDICARE, MEDICAID, SELFPAY ==
[2021-05-28 12:50] LABS: BNP,B-Type NATRIURETIC PEPTIDE 57.2 pg/mL (0-100)
[2021-05-28 13:06] LABS: Anion Gap 5 (5-15); BUN 9 mg/dL (7-18); BUN/Creat Ratio 11.6 RATIO (10-20); Calcium,Total 9.4 mg/dL (8.5-10.1); Chloride 105 mmol/L (98-107); Creatinine, Serum 0.78 mg/dL (0.55-1.02); EST Glomerular Filtration Rate 79 mL/min (>60); Est Glom Filt Rate - Afr Amer 95 mL/min (>60); Glucose 91 mg/dL (74-106); Potassium 4.3 mmol/L (3.5-5.1); Sodium Level 139 mmol/L (136-145)
== END 2021-05-28 23:59 | disposition home or self-care (01) ==
LOC: LAB 11:25
PROVIDERS: Referring Provider Nurse Practitioner Family; Visit Provider Nurse Practitioner Family
DX: R06.09 Other forms of dyspnea (principal); I47.2 Ventricular tachycardia; R00.1 Bradycardia, unspecified
CPT/HCPCS: 36415; 80048; 83880

== ENCOUNTER 2021-06-13 09:43 | Outpatient (CLI) | payer MEDICARE, MEDICAID, SELFPAY ==
--- NOTE | 2021-06-13 10:14 | RAD_ITS ---
History: NEUROPATHY Lumbar spine 3 views: Findings: No fracture or subluxation. Bony structures are diffusely osteoporotic. Multilevel disc space narrowing and facet arthropathy. Mild scoliosis. Pedicles and posterior elements appear intact. IMPRESSION: Moderate diffuse spondylosis. at 1123 Reported and signed by: Jasiel Howe MD Electronically Signed: Jasiel Howe MD at 11:22 EST , RAD/Lumbar Spine 2 or 3 Views
[2021-06-13 10:48] LABS: Erythrocyte Sedimentation Rate 13 mm/hr (0-30)
[2021-06-13 11:20] LABS: CPK Total, Creatine Kinase 42 U/L (26-192); CRP < 2.90 mg/L (0.0-3.0); Rheumatoid Factor < 10.0 IU/mL (<15); Uric Acid 4.1 mg/dL (2.6-6.0)
[2021-06-14 22:06] LABS: ANTINUCLEAR ANTIBODIES DIRECT Negative (Negative)
== END 2021-06-13 23:59 | disposition home or self-care (01) ==
LOC: LAB 09:45
DX: G90.09 Other idiopathic peripheral autonomic neuropathy (principal)
CPT/HCPCS: 36415; 72100; 82550; 84550; 85652; 86038; 86140; 86431

== ENCOUNTER → 2021-10-10 | Outpatient (CLI) | payer MEDICARE, MEDICAID, SELFPAY ==
--- NOTE | 2021-10-10 10:32 | RAD_ITS ---
STUDY: X-RAY - LEFT KNEE REASON FOR EXAM: Female, 66 years old. ARTHRITIS TECHNIQUE: 4 view(s) of the knee. COMPARISON: None. FINDINGS: Normal visualized distal femur. Normal visualized proximal tibia and fibula. Normal proximal tibiofibular articulation. Normal medial femorotibial compartment. Normal lateral femorotibial compartment. Normal patellofemoral articulation. The soft tissue structures are unremarkable. RAD/Knee 4 or More Views IMPRESSION: Normal x-ray examination of the knee. Electronically Signed: Chidi Garibay MD at 15:27 EDT ,
--- NOTE | 2021-10-10 10:34 | RAD_ITS ---
STUDY: X-RAY - LEFT WRIST REASON FOR EXAM: Female, 66 years old. ARTHRITIS TECHNIQUE: 3 view(s) of the wrist were obtained. COMPARISON: Comparison is made with prior examination dated 06/15/2019. FINDINGS: Normal visualized distal radius and ulna. There is degenerative arthrosis of the radiocarpal articulation. Normal distal radioulnar articulation. Normal carpal bones. Widening of the space between the lunate and navicular bone suggestive of possible ligamentous injury. There is degenerative arthrosis of the carpometacarpal articulation of the thumb. Normal second through fifth carpometacarpal articulations. There is demineralization of the metacarpal bones. The soft tissue structures are unremarkable. RAD/Wrist min 3 Views IMPRESSION: Osteoarthritis of the distal radial carpal joint as well as the first carpometacarpal joint. Increased distance between the lunate and navicular bone suggestive of possible ligamentous injury. Electronically Signed: Chidi Garibay MD at 15:26 EDT ,
[2021-10-10 11:50] LABS: Absolute Lymphocyte Count 2.07 X10^3/uL (0.83-4.51); Absolute Neutrophil Count 3.7 X10^3/uL (2.0-7.7); Basophil# 0.05 X10^3/uL; Basophil% 0.7 % (0-1); Eosinophil# 0.15 X10^3/uL; Eosinophils% 2.2 % (0-5); Hematocrit 46.4 % (37-47); Hemoglobin 14.4 g/dL (12.0-15.0); Lymphocyte # 2.07 X10^3/ul (0.83-4.51); Mean Corpuscular Hgb 26.2 pg (27.0-32.0); Mean Corpuscular Volume 84.5 fL (81-99); Mean Platelet Vol. 12.2 fl (6.2-12.0); Monocyte# 0.95 X10^3/uL; Monocyte% 13.7 % (0-10); NRBC Flagged by Analyzer 0 % (0-5); Neutrophil # 3.67 X10^3/uL (2.7-7.7); Neutrophil % 53.1 % (47-70); Platelet Count 283 K/mm3 (150-450); RBC Distribution Width CV 15.8 % (11.6-14.6); Red Blood Count 5.49 M/mm3 (4.2-5.4); White Blood Count 6.9 K/mm3 (4.4-11.0)
[2021-10-10 12:33] LABS: ALB/GLOB Ratio 0.9 RATIO (0.9-2.4); AST(SGOT) 12 U/L (15-37); Alanine Aminotransfer ALT/SGPT 15 U/L (13-56); Albumin, Serum 3.7 g/dL (3.2-5.0); Alkaline Phosphatase 108 U/L (45-117); Anion Gap 6 (5-15); BUN 9 mg/dL (7-18); BUN/Creat Ratio 12.5 RATIO (10-20); Calcium,Total 9.2 mg/dL (8.5-10.1); Chloride 109 mmol/L (98-107); Creatinine, Serum 0.72 mg/dL (0.55-1.02); EST Glomerular Filtration Rate 86 mL/min (>60); Est Glom Filt Rate - Afr Amer 104 mL/min (>60); Glucose 109 mg/dL (74-106); Potassium 3.9 mmol/L (3.5-5.1); Protein, Total 7.7 g/dL (6.4-8.2); Sodium Level 139 mmol/L (136-145)
[2021-10-10 14:12] LABS: Vitamin B12 308 pg/mL (211-911)
[2021-10-10 14:46] LABS: Iron 48 ug/dL (50-170); Iron Binding Capacity,Total 387 ug/dL (250-450)
[2021-10-13 14:31] LABS: Vitamin D 1,25-Dihydroxy 79.8 pg/mL (24.8-81.5)
== END | disposition home or self-care (01) ==
LOC: LAB 10:13
PROVIDERS: Referring Provider Nurse Practitioner Adult Health; Visit Provider Nurse Practitioner Adult Health
DX: M19.032 Primary osteoarthritis, left wrist (principal); M18.12 Unilateral primary osteoarthritis of first carpometacarpal joint, left hand; M17.12 Unilateral primary osteoarthritis, left knee; R10.84 Generalized abdominal pain; K92.1 Melena; D64.9 Anemia, unspecified
CPT/HCPCS: 36415; 73110; 73564; 80053; 82274; 82607; 82652; 83540; 83550; 85025

== ENCOUNTER → 2021-11-12 | Outpatient (CLI) | payer MEDICARE, MEDICAID, SELFPAY ==
--- NOTE | 2021-11-12 08:25 | BD_ITS ---
STUDY: DUAL ENERGY X-RAY ABSORPTIOMETRY / DXA REASON FOR EXAM: Female, 66 years old. M810. Patient is postmenopausal. TECHNIQUE: Bone Mineral Density (BMD) measurements of lumbar spine and bilateral hips were obtained. COMPARISON: None. FINDINGS: Lumbar Spine (L1-L4): g/cm2 (0.751) / T-score (-2.7) / Z-score (-0.8) Findings are suggestive of osteoporosis with a high fracture risk. Left Femur Total: g/cm2 (0.700) / T-score (-2.0) / Z-score (-0.7) Left Femoral Neck: g/cm2 (0.579) / T-score (-2.4) / Z-score (-0.8) Right Femur Total: g/cm2 (0.664) / T-score (-2.3) / Z-score (-1.0) Right Femoral Neck: g/cm2 (0.589) / T-score (-2.3) / Z-score (-0.7) BD/Dexa Bone Density Study IMPRESSION: The patient is considered osteoporotic as outlined below according to World Mahesh Organization (WHO) criteria with a high fracture risk. Reference Information: The T-score is the number of standard deviations above or below the standard which is normal for young adults at their peak bone mineral density. The World Health Organization (WHO) interprets the T-scores as follows: Above -1 Normal bone density Between -1 and -2.5 Osteopenia Equal to / or below -2.5 Osteoporosis As a practical clinical guideline, osteopenia may be graded as follows: Mild -1 through -1.5 Moderate -1.6 through -2.0 Severe -2.1 through -2.4 The Z-score is the number of standard deviations above or below age-matched controls. A Z-score of less than -1.5 would be considered abnormal. References: 1. NIH Osteoporosis and Related Bone Diseases www osteo.org 2. International Society for Clinical Densitometry www iscd.org 3. National Osteoporosis Foundation www nof.org Electronically Signed: Chidi Garibay MD at 15:20 EDT ,
== END | disposition home or self-care (01) ==
LOC: OPBD 08:18
PROVIDERS: Visit Provider Nurse Practitioner Adult Health
DX: M81.0 Age-related osteoporosis without current pathological fracture (principal); M19.049 Primary osteoarthritis, unspecified hand; Z78.0 Asymptomatic menopausal state
CPT/HCPCS: 77080

== ENCOUNTER → 2021-11-28 | Outpatient (CLI) | payer MEDICARE, MEDICAID, SELFPAY ==
[2021-11-28 10:13] LABS: Absolute Neutrophil Count 3.4 X10^3/uL (2.0-7.7); Basophil# 0.06 X10^3/uL; Basophil% 0.9 % (0-1); Hemoglobin 14.3 g/dL (12.0-15.0); Lymphocyte % 31.3 % (19-41); Mean Corp Hgb Conc 31.1 g/dL (32-36); Mean Corpuscular Hgb 26.2 pg (27.0-32.0); Mean Corpuscular Volume 84.2 fL (81-99); Mean Platelet Vol. 11.7 fl (6.2-12.0); Monocyte# 0.97 X10^3/uL; Monocyte% 14.5 % (0-10); NRBC Flagged by Analyzer 0 % (0-5); Neutrophil # 3.36 X10^3/uL (2.7-7.7); Platelet Count 313 K/mm3 (150-450); RBC Distribution Width CV 15.5 % (11.6-14.6); RBC Distribution Width SD 46.7 fl (35.1-43.9); Red Blood Count 5.46 M/mm3 (4.2-5.4); White Blood Count 6.7 K/mm3 (4.4-11.0)
[2021-11-28 10:44] LABS: ALB/GLOB Ratio 0.8 RATIO (0.9-2.4); AST(SGOT) 14 U/L (15-37); Alanine Aminotransfer ALT/SGPT 21 U/L (13-56); Albumin, Serum 3.4 g/dL (3.2-5.0); Alkaline Phosphatase 96 U/L (45-117); Anion Gap 5 (5-15); BUN 12 mg/dL (7-18); BUN/Creat Ratio 18.6 RATIO (10-20); CRP < 2.90 mg/L (0.0-3.0); Calcium,Total 8.4 mg/dL (8.5-10.1); Chloride 108 mmol/L (98-107); Creatinine, Serum 0.64 mg/dL (0.55-1.02); EST Glomerular Filtration Rate 98 mL/min (>60); Est Glom Filt Rate - Afr Amer 118 mL/min (>60); Ferritin 47 ng/mL (8-252); Globulin 4.3 g/dL (2.2-4.2); Glucose 100 mg/dL (74-106); Iron 34 ug/dL (50-170); Iron Binding Capacity,Total 342 ug/dL (250-450); PERCENT IRON SATURATION 9.9 % (15.0-55.0); Potassium 3.8 mmol/L (3.5-5.1); Protein, Total 7.7 g/dL (6.4-8.2); Sodium Level 141 mmol/L (136-145)
[2021-11-28 10:52] LABS: Erythrocyte Sedimentation Rate 29 mm/hr (0-30)
== END | disposition home or self-care (01) ==
LOC: LAB 08:21
PROVIDERS: Referring Provider Nurse Practitioner Adult Health; Visit Provider Nurse Practitioner Adult Health
DX: R10.9 Unspecified abdominal pain (principal); I47.2 Ventricular tachycardia; K62.5 Hemorrhage of anus and rectum
CPT/HCPCS: 36415; 80053; 82728; 83540; 83550; 85025; 85652; 86140

== ENCOUNTER → 2022-01-08 | Outpatient (CLI) | payer MEDICARE, MEDICAID, SELFPAY ==
--- NOTE | 2022-01-08 13:05 | CT_ITS ---
STUDY: CT ABDOMEN AND PELVIS WITH CONTRAST REASON FOR EXAM: Female, 66 years old. LLQ abd tender, epigastric lower, left abdominal pain,rectal bleed -- oral and iv RADIATION DOSAGE (If Supplied By Facility): CTDIvol = ( 18.02 ) mGy, DLP = ( 1153.60 ) mGycm TECHNIQUE: Transaxial images were obtained from the dome of the diaphragm to the symphysis pubis without oral contrast. IV 100mL Isovue-300 was administered. Sagittal and coronal images were reconstructed. Individualized dose optimization techniques were used for this CT. COMPARISON: 02/23/2018 FINDINGS: There is a right lower lobe granuloma. The visualized portions of the heart are within normal limits. There is decreased attenuation of the liver consistent with steatosis. There is non-visualization of the gallbladder, which may be secondary to either contraction or a prior cholecystectomy. Normal spleen. Normal pancreas. Normal bilateral adrenal glands. Normal right kidney. Normal left kidney. Normal visualized stomach. Normal small intestine. There are multiple colonic diverticula consistent with diverticulosis. There appears to be mild circumferential wall thickening of the sigmoid colon with minimal adjacent stranding may reflect mild diverticulitis. The appendix is visualized and appears normal. There are a few peripheral calcifications of the abdominal aorta. Normal inferior vena cava. Normal retroperitoneum. Normal urinary bladder. Normal abdominal wall. There are diffuse degenerative changes of the visualized lumbar spine. CT/Abdomen/Pelvis WITH Contrast IMPRESSION: Findings may reflect mild acute diverticulitis of the sigmoid colon. Fatty infiltration of the liver. Atherosclerosis. Electronically Signed: Sri Murguia MD at 14:01 EDT ,
[2022-01-08 13:40] LABS: CREATININE FINGERSTICK < 0.9 mg/dL (0.55-1.02); EGFR FINGERSTICK > 60.0000 mL/min (>60)
== END | disposition home or self-care (01) ==
LOC: CT 12:59
PROVIDERS: Visit Provider Nurse Practitioner Adult Health
DX: R10.32 Left lower quadrant pain (principal); K62.5 Hemorrhage of anus and rectum; K76.0 Fatty (change of) liver, not elsewhere classified
CPT/HCPCS: 74177; Q9967; A4216

== ENCOUNTER 2022-01-23 10:44 | Day surgery (SDC) | payer MEDICARE, MEDICAID, SELFPAY ==
[2022-01-23] VITALS (8 sets, daily range): BP systolic 108–126; BP diastolic 50–83; PULSE 42–81; RESP 16; TEMP 36.2–36.8; O2SAT 92–98; BMI 29.0
--- NOTE | 2022-01-23 | ESO_PTH ---
PATIENT: SALINA ARAGON LOC: EN U#:[id number] AGE/SX: 66/F ROOM: RE01/23/[address]: Dr. Con Dailey DO : 1955 BED: DIS: 01/23/2022 SPEC #: [id number] RECD: 01/23/22 14:08 STATUS: MELA AC #: [id number] KEVIN: 01/23/22 00:[address]: Con Dailey DEPT: SURGICAL PATHOLOGY RECD BY: Efrain Richards ENTERED: 01/24/22 08:58 SP TYPE: BRIAN ZARATE DR: Zoie Mann, SIGNAL PROCESSING ENGINEER-C [facility] Tissues: A - Esophagus, NOS B - Sigmoid colon biopsy C - Cecum, NOS Procedures: Special Stain Group II Surgery Specimen Level IV Alcian Blue/PAS (control) HEADER OPERATION: Colonoscopy, EGD ([facility] [place]) PRE-OP DIAGNOSIS: Rectal bleed, abdominal pain, melena, GERD TISSUE SUBMITTED: A ? Distal esophagus biopsy, B ? Sigmoid polyp, C ? Cecum polyp MICROSCOPIC DIAGNOSIS A. Distal esophagus, biopsy: Gastroesophageal junctional mucosa with chronic inflammation. 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 No evidence of dysplasia. See comment. B. Sigmoid colon polyp, biopsy: Tubular adenoma. C. Cecal polyp, biopsy: Fragments of tubular adenoma. AM:evita 01/27/2022 COMMENT A. Immunohistochemistry ([id number]) for P53 and Ki-67 will be performed and results will be reported separately. Alcian blue/PAS stain with matched control supports the above diagnosis. MICROSCOPIC DESCRIPTION Slides are reviewed. GROSS DESCRIPTION A - Received in fixative is one container labeled with the patient's name and designated distal esophagus. The specimen consists of multiple irregular fragments of light fink soft tissue that in aggregate measure 1 x 0.5 x 0.1 cm. The specimen is totally submitted in one cassette. B - Received in fixative is one container labeled with the patient's name and designated sigmoid polyp biopsy. The specimen consists of one irregular fragment of light fink soft tissue that measures 0.7 x 0.6 x 0.5 cm. The specimen is totally submitted in one cassette. The specimen is bisected and totally submitted in one cassette. C - Received in fixative is one container labeled with the patient's name and designated cecal polyp. The specimen consists of multiple irregular fragments of light fink soft tissue that in aggregate measure 2 x 1 x 0.1 cm. The specimen is totally submitted in one cassette. / AM:evita 01/24/2022 TC:5 CPT: 54193 x3, 26089
--- NOTE | 2022-01-23 | IMM_PTH ---
PATIENT: SALINA ARAGON LOC: EN U#:[id number] AGE/SX: 66/F ROOM: RE01/23/[address]: Dr. Con Dailey DO : 1955 BED: DIS: 01/23/2022 SPEC #: [id number] RECD: 01/27/22 10:57 STATUS: MELA REQ #: [id number] KEVIN: 01/23/22 00:[address]: Con Dailey DEPT: IMMUNOHISTOCHEMISTRY RECD BY: Christine Vazquez ENTERED: 01/27/22 10:59 SP TYPE: IMMUNO OTHR DR: Zoie Mann, CERTIFIED NUTRITIONIST-C [facility] Tissues: A - Esophageal mucous membrane Procedures: P53 (initial) KI-67 (add) PHYSICIAN & INSTITUTION [place] [id number] SPECIMEN INFORMATION: Tissue Source: A ? Distal esophagus biopsy Clinical Info: Rectal bleed, abdominal pain, melena, GERD Specimen Number: [id number] CPT code: 86475, 58249 METHODOLOGY: Deparaffinized sections of prefer/formalin-fixed tissue or PAP/DQ stained slides are incubated with monoclonal/polyclonal antibodies/oligonucleotide probes. Localization is made via biotin free immunoperoxidase method. Appropriate controls are performed and reacted as expected. Results on target cell population are indicated in the following table: RESULTS: ANTIBODY / CLONE RESULT Block A P53 (DO-7) negative Ki-67 (30-9) negative These tests were developed and their performance characteristics determined by [facility]. They may not have been cleared or approved by the U.S. Food and Drug Administration. The FDA has determined that such clearance or approval is not necessary. The above immunohistochemical/dualISH markers are ordered and reviewed by the Pathologist. INTERPRETATION: A. Distal esophagus, biopsy: No evidence of dysplasia. AM:evita 01/28/2022
[2022-01-23] MEDS: Lactated Ringers 1,000 ML 15 ML IV (11:17)
--- NOTE | 2022-01-23 12:03 | PCM.HP.BLA ---
History and Physical Date of Admission: 01/23/22 66 F who presents to the office today for bright red blood per rectum, occurred once 3-4 wks ago. started with watery diarrhea, noted blood then, and blood with wiping. Diarrhea cleared. She reports that stool has been black and sticky intermittently for past 3-4 months. Now alternating black and dark green. No change in bowel pattern; she is chronically constipated, has BM q3-4 days, often bloated. Pain in epigastrium, LUQ, radiates through and around to back. Dull ache all the time, worse with solid foods. no relieving factors. Started about a year ago. Takes omeprazole 40 mg daily for heartburn, not fully controlled. Hx of EGD 2018--gastric ulcer, negative for H Pylori, and a repeat EGD in 2019 which showed gastric ulcer had resolved. Frequently feels queasy, not vomiting, no hematemesis. 10/10/21 stool hemoccult positive, hgb 14.4, iron 48 Takes ferrous sulfate once a day Comorbidities include chronic DVT on Eliquis, COPD, hypertension, osteoarthritis, spina bifida, smoker Past surgical history: Right breast biopsy negative, left heart cath, tubal ligation ROS Const Constitutional: Positive for fatigue ENT ENT: No difficulty swallowing Gastro GI: Positive for abdominal pain, bloating, change in bowel habits, constipation, diarrhea, excessive flatus, Blood in stool and nausea/dyspepsia; No belching, change in stool character, coffee ground emesis, cramping, heartburn, difficulty swallowing, feeling full early, incontinent of stools, Vomiting blood/hematemesis, loose stools, Black,tarry stools, pain with swallowing, vomiting or other Musc Musculoskeletal: Positive for stiffness, Arthritis and leg pain at night; No joint pain Skin Skin: No yellowing of the eye or itchy eyes Psych Psychiatric: No anxiety and No depression Endo Endocrine: Positive for fatigue Aller/Imm Allergy/Immunologic: No itchy eyes Antwan/Lymp Hematologic/Lymphatic: No easy bleeding or easy bruising Exam Const General: cooperative and comfortable Nutritional Appearance: overweight Orientation: alert, awake and oriented x3 HENMT Head: normal to inspection Eyes General: appearance normal, both eyes and all related structures Resp Effort & Inspection: normal respiratory effort GI Inspection: normal to inspection Palpation: soft, no hepatosplenomegaly, no masses and tender in the epigastrum and in the LUQ Quality Reporting Tobacco Screening ([facility] 138) Smoking Status: Former smoker Assessment and Plan Assessment and Plan (1) Rectal bleed: ?Status:?Acute ?Plan: 66-year-old female with melena for several months, recent bright red blood per rectum, epigastric and left upper quadrant pain. She has GERD, and hx of gastric ulcer. Update labs today to check hemoglobin, iron, ferritin, inflammatory markers CT abd pel oral and IV to evaluate rectal bleeding and abd pain EGD and colonoscopy, f/u 2 wks later to review results Capsule endoscopy--we should be able to do this much sooner than endoscopy (2) Abdominal pain: ?Status:?Acute ?Plan: as above (3) Melena: ?Status:?Acute ?Plan: as above (4) GERD (gastroesophageal reflux disease): ?Status:?Acute ?Plan: as above ? ? ? Orders: Orders Abdomen/Pelvis WITH Contrast Today K62.5 - Hemorrhage of anus and rectum, R10.9 - Unspecified abdominal pain ? Comprehensive Metabolic Profil Today K62.5 - Hemorrhage of anus and rectum ? CRP Today K62.5 - Hemorrhage of anus and rectum ? CBC W/Diff, Automated Today K62.5 - Hemorrhage of anus and rectum, R10.9 - Unspecified abdominal pain ? Erythrocyte Sed Rate Today K62.5 - Hemorrhage of anus and rectum ? Ferritin Today I47.2 - Ventricular tachycardia, K62.5 - Hemorrhage of anus and rectum ? Iron+Iron Binding Capacity Today K62.5 - Hemorrhage of anus and rectum ? I have re-examined the patient. There are no clinical changes since date of exam.
--- NOTE | 2022-01-23 12:54 | OP.CCLET_ITS ---
01/23/2022 Neeta Greenberg [facility] Re : Upper GI endoscopy procedure for Concepcion Gotti [facility] This procedure was performed on January. My impressions and recommendations are as follows: Impressions : - Z-line irregular, 38 cm from the incisors. Biopsied. - Medium-sized hiatal hernia. - No gross lesions in the second portion of the duodenum. Recommendations : - Discharge patient to home. - Resume previous diet. - Continue present medications. - Await pathology results. My findings are described in the full procedure note, which is enclosed. If I can be of further assistance, please feel free to contact me at . Sincerely, Con Dailey, 01/23/2022 12:53:46 PM This report has been signed electronically.
--- NOTE | 2022-01-23 12:54 | OP.EGD_ITS ---
Patient Name: Concepcion Gotti Procedure Date: 01/23/2022 12:02 PM Date of : 1955 Age: 66 Procedure: Upper GI endoscopy Indications: Epigastric abdominal pain, Dyspepsia Providers: Con Dailey DO Medicines: Monitored Anesthesia Care Patient Profile: This is a 66 year old female. Refer to note in patient chart for documentation of history and physical. Patient has symptoms of acute left upper quadrant abdominal pain, chronic left lower quadrant abdominal pain and acute epigastric abdominal pain. Complications: No immediate complications. Procedure: Pre-Anesthesia Assessment: - Prior to the procedure, a History and Physical was performed, and patient medications and allergies were reviewed. The patient is competent. The risks and benefits of the procedure and the sedation options and risks were discussed with the patient. All questions were answered and informed consent was obtained. Patient identification and proposed procedure were verified by the physician in the pre-procedure area. Mental Status Examination: alert and oriented. Airway Examination: normal oropharyngeal airway and neck mobility. Respiratory Examination: clear to auscultation. CV Examination: normal. Prophylactic Antibiotics: The patient does not require prophylactic antibiotics. Prior Anticoagulants: The patient has taken no previous anticoagulant or antiplatelet agents. ASA Grade Assessment: II - A patient with mild systemic disease. After reviewing the risks and benefits, the patient was deemed in satisfactory condition to undergo the procedure. The anesthesia plan was to use moderate sedation / analgesia (conscious sedation). Immediately prior to administration of medications, the patient was re-assessed for adequacy to receive sedatives. The heart rate, respiratory rate, oxygen saturations, blood pressure, adequacy of pulmonary ventilation, and response to care were monitored throughout the procedure. The physical status of the patient was re-assessed after the procedure. After obtaining informed consent, the endoscope was passed under direct vision. Throughout the procedure, the patient's blood pressure, pulse, and oxygen saturations were monitored continuously. The pediatric colonoscope was introduced through the mouth, and advanced to the second part of duodenum. The upper GI endoscopy was accomplished without difficulty. The patient tolerated the procedure well. Scope In: 12:14:45 PM Scope Out: 12:19:29 PM Total Procedure Duration Time 0 hours 4 minutes 44 seconds Findings: The Z-line was irregular and was found 38 cm from the incisors. Biopsies were taken with a cold forceps for histology. Verification of patient identification for the specimen was done. Estimated blood loss was minimal. A medium-sized hiatal hernia was present. No gross lesions were noted in the second portion of the duodenum. Impression: - Z-line irregular, 38 cm from the incisors. Biopsied. - Medium-sized hiatal hernia. - No gross lesions in the second portion of the duodenum. Recommendation: - Discharge patient to home. - Resume previous diet. - Continue present medications. - Await pathology results. Procedure Code(s): --- Professional --- 18786, Esophagogastroduodenoscopy, flexible, transoral; with biopsy, single or multiple CPT copyright 2017 [employer]. All rights reserved. The codes documented in this report are preliminary and upon director special education review may be revised to meet current compliance requirements. Con Dailey DO 01/23/2022 12:53:46 PM This report has been signed electronically. Number of Addenda: 0 Note Initiated On: 01/23/2022 12:02 PM
--- NOTE | 2022-01-23 12:59 | OP.COLON_ITS ---
Patient Name: Concepcion Gotti Procedure Date: 01/23/2022 12:19 PM Date of : 1955 Age: 66 Procedure: Colonoscopy Indications: Abdominal pain in the left lower quadrant, Rectal bleeding Providers: Con Dailey DO Medicines: Monitored Anesthesia Care Patient Profile: This is a 66 year old female. Refer to note in patient chart for documentation of history and physical. Patient has symptoms of acute left upper quadrant abdominal pain, chronic left lower quadrant abdominal pain and acute epigastric abdominal pain. Last Colonoscopy: date unknown. Unable to locate last colonoscopy report. Complications: No immediate complications. Procedure: Pre-Anesthesia Assessment: - Prior to the procedure, a History and Physical was performed, and patient medications and allergies were reviewed. The patient is competent. The risks and benefits of the procedure and the sedation options and risks were discussed with the patient. All questions were answered and informed consent was obtained. Patient identification and proposed procedure were verified by the physician in the pre-procedure area. Mental Status Examination: alert and oriented. Airway Examination: normal oropharyngeal airway and neck mobility. Respiratory Examination: clear to auscultation. CV Examination: normal. Prophylactic Antibiotics: The patient does not require prophylactic antibiotics. Prior Anticoagulants: The patient has taken no previous anticoagulant or antiplatelet agents. ASA Grade Assessment: II - A patient with mild systemic disease. After reviewing the risks and benefits, the patient was deemed in satisfactory condition to undergo the procedure. The anesthesia plan was to use moderate sedation / analgesia (conscious sedation). Immediately prior to administration of medications, the patient was re-assessed for adequacy to receive sedatives. The heart rate, respiratory rate, oxygen saturations, blood pressure, adequacy of pulmonary ventilation, and response to care were monitored throughout the procedure. The physical status of the patient was re-assessed after the procedure. After I obtained informed consent, the scope was passed under direct vision. Throughout the procedure, the patient's blood pressure, pulse, and oxygen saturations were monitored continuously. The pediatric colonoscope was introduced through the anus and advanced to the cecum, identified by appendiceal orifice and ileocecal valve. The colonoscopy was performed without difficulty. The patient tolerated the procedure well. The quality of the bowel preparation was good. Scope In: 12:21:08 PM Scope Out: 12:47:48 PM Total Procedure Duration Time 0 hours 26 minutes 40 seconds Findings: Hemorrhoids were found on perianal exam. A 10 mm polyp was found in the sigmoid colon. The polyp was sessile. The polyp was removed with a hot snare. Resection and retrieval were complete. Verification of patient identification for the specimen was done. Estimated blood loss was minimal. A 8 mm polyp was found in the cecum. The polyp was sessile. The polyp was removed with a hot snare. Resection and retrieval were complete. Verification of patient identification for the specimen was done. Estimated blood loss was minimal. Scattered small and large-mouthed diverticula were found in the entire colon, left colon and right colon. Impression: - Hemorrhoids found on perianal exam. - One 10 mm polyp in the sigmoid colon, removed with a hot snare. Resected and retrieved. - One 8 mm polyp in the cecum, removed with a hot snare. Resected and retrieved. - Moderate diverticulosis in the entire examined colon, in the left colon and in the right colon. -The sigmoid polyp was seen to be causing intermittent intussusception. Recommendation: - Discharge patient to home. - Resume previous diet. - Continue present medications. - Await pathology results. - Repeat colonoscopy in 3 years for surveillance. - Return to GI office in 1 week. Procedure Code(s): --- Professional --- 14239, Colonoscopy, flexible; with removal of tumor(s), polyp(s), or other lesion(s) by snare technique CPT copyright 2017 [employer]. All rights reserved. The codes documented in this report are preliminary and upon field cane scaler helper review may be revised to meet current compliance requirements. Con Dailey DO 01/23/2022 12:58:45 PM This report has been signed electronically. Number of Addenda: 0 Note Initiated On: 01/23/2022 12:19 PM
--- NOTE | 2022-01-23 12:59 | OP.CCLET_ITS ---
01/23/2022 [facility] Re : Colonoscopy [facility] This procedure was performed on January. My impressions and recommendations are as follows: Impressions : - Hemorrhoids found on perianal exam. - One 10 mm polyp in the sigmoid colon, removed with a hot snare. Resected and retrieved. - One 8 mm polyp in the cecum, removed with a hot snare. Resected and retrieved. - Moderate diverticulosis in the entire examined colon, in the left colon and in the right colon. -The sigmoid polyp was seen to be causing intermittent intussusception. Recommendations : - Discharge patient to home. - Resume previous diet. - Continue present medications. - Await pathology results. - Repeat colonoscopy in 3 years for surveillance. - Return to GI office in 1 week. My findings are described in the full procedure note, which is enclosed. If I can be of further assistance, please feel free to contact me at . Sincerely, Con Dailey, 01/23/2022 12:58:45 PM This report has been signed electronically.
== END 2022-01-23 13:33 | disposition home or self-care (01) ==
LOC: EN 10:44 → AC 10:45
PROVIDERS: Referring Provider Internal Medicine Gastroenterology; Visit Provider Internal Medicine Gastroenterology
PROC: 0DJD8ZZ Inspection of Lower Intestinal Tract, Via Natural or Artificial Opening Endoscopic (ICD-10-PCS; CPT 45378; principal; 2022-01-23 11:40)
DX: D12.0 Benign neoplasm of cecum (principal); J43.9 Emphysema, unspecified; K56.1 Intussusception; D12.5 Benign neoplasm of sigmoid colon; K92.1 Melena; K64.9 Unspecified hemorrhoids; K21.9 Gastro-esophageal reflux disease without esophagitis; K44.9 Diaphragmatic hernia without obstruction or gangrene; K57.50 Diverticulosis of both small and large intestine without perforation or abscess without bleeding; I47.20 Ventricular tachycardia, unspecified; I10 Essential (primary) hypertension; Z99.81 Dependence on supplemental oxygen; Z79.01 Long term (current) use of anticoagulants; Z79.899 Other long term (current) drug therapy; Z86.718 Personal history of other venous thrombosis and embolism; Z87.891 Personal history of nicotine dependence
CPT/HCPCS: 45385; 43239; 88305; 88313; 88341; 88342; J7120; J2405

== ENCOUNTER → 2022-02-12 | Outpatient (CLI) | payer MEDICARE, MEDICAID, SELFPAY ==
[2022-02-12 10:18] LABS: Absolute Lymphocyte Count 1.34 X10^3/uL (0.83-4.51); Absolute Neutrophil Count 2.7 X10^3/uL (2.0-7.7); Basophil# 0.06 X10^3/uL; Basophil% 1.2 % (0-1); Eosinophil# 0.19 X10^3/uL; Eosinophils% 3.7 % (0-5); Hematocrit 44.6 % (37-47); Hemoglobin 14.2 g/dL (12.0-15.0); Lymphocyte # 1.34 X10^3/ul (0.83-4.51); Lymphocyte % 26.1 % (19-41); Mean Corp Hgb Conc 31.8 g/dL (32-36); Mean Corpuscular Hgb 28.1 pg (27.0-32.0); Mean Corpuscular Volume 88.1 fL (81-99); Mean Platelet Vol. 11.1 fl (6.2-12.0); Monocyte# 0.87 X10^3/uL; Monocyte% 16.9 % (0-10); NRBC Flagged by Analyzer 0 % (0-5); Neutrophil # 2.67 X10^3/uL (2.7-7.7); Neutrophil % 51.9 % (47-70); Platelet Count 239 K/mm3 (150-450); RBC Distribution Width CV 16.8 % (11.6-14.6); RBC Distribution Width SD 53.9 fl (35.1-43.9); Red Blood Count 5.06 M/mm3 (4.2-5.4); White Blood Count 5.1 K/mm3 (4.4-11.0)
[2022-02-12 10:23] LABS: Erythrocyte Sedimentation Rate 16 mm/hr (0-30)
[2022-02-12 10:27] LABS: International Normalized Ratio 1.1; Prothrombin Time (Protime)PT. 13.7 SECONDS (11.7-14.9)
[2022-02-12 10:51] LABS: ALB/GLOB Ratio 0.9 RATIO (0.9-2.4); AST(SGOT) 12 U/L (15-37); Alanine Aminotransfer ALT/SGPT 15 U/L (13-56); Albumin, Serum 3.5 g/dL (3.2-5.0); Alkaline Phosphatase 97 U/L (45-117); Anion Gap 6 (5-15); BUN 9 mg/dL (7-18); BUN/Creat Ratio 12.4 RATIO (10-20); CRP < 2.90 mg/L (0.0-3.0); Calcium,Total 8.2 mg/dL (8.5-10.1); Chloride 106 mmol/L (98-107); Creatinine, Serum 0.73 mg/dL (0.55-1.02); EST Glomerular Filtration Rate 85 mL/min (>60); Est Glom Filt Rate - Afr Amer 103 mL/min (>60); Ferritin 55 ng/mL (8-252); Globulin 3.9 g/dL (2.2-4.2); Glucose 104 mg/dL (74-106); Iron 90 ug/dL (50-170); Iron Binding Capacity,Total 336 ug/dL (250-450); LDH 127 U/L (84-246); PERCENT IRON SATURATION 26.8 % (15.0-55.0); Potassium 3.7 mmol/L (3.5-5.1); Protein, Total 7.4 g/dL (6.4-8.2); Sodium Level 139 mmol/L (136-145)
[2022-02-12 12:45] LABS: HIV - WCH Non-Reactive (Nonreactive)
[2022-02-13 14:09] LABS: Anti-Centromere B Ab <0.2 AI (0.0-0.9); Anti-Chromatin <0.2 AI (0.0-0.9); Anti-Jo <0.2 AI (0.0-0.9); Anti-Scleroderma-70 AB <0.2 AI (0.0-0.9); RNP Ab <0.2 AI (0.0-0.9); SJOGREN'S Anti-SS-A test < 0.2 AI (0.0-0.9); SJOGREN'S Anti-SS-B test < 0.2 AI (0.0-0.9); Smith Ab <0.2 AI (0.0-0.9)
[2022-02-14 14:08] LABS: Angiotensin Convert Enzyme 44 U/L (14-82); Ceruloplasmin 28.9 mg/dL (19.0-39.0); HEPATITIS B SURFACE AG Negative (Negative); Hep C Antibodies 0.1 s/co ratio (0.0-0.9); Hepatitis A IgM Antibody Negative (Negative); Hepatitis B Core AB IgM Negative (Negative)
[2022-02-14 15:11] LABS: Anti-Mitochondrial AB <20.0 Units (0.0-20.0); Anti-dsDNA Ab <1 IU/mL (0-9)
[2022-02-14 15:32] LABS: AFP, Tumor Marker 3.2 ng/mL (0.0-9.2); Anti-Smooth Muscle ABS 16 Units (0-19); Copper, Serum or Plasma 122 ug/dL (80-158); Haptoglobin 177 mg/dL (37-355); Perinuclear Ab (P-ANCA) <1:20 titer (Neg:<1:20)
== END | disposition home or self-care (01) ==
LOC: LAB 09:45
PROVIDERS: Visit Provider Nurse Practitioner Adult Health
DX: R93.1 Abnormal findings on diagnostic imaging of heart and coronary circulation (principal); K76.0 Fatty (change of) liver, not elsewhere classified; D64.9 Anemia, unspecified; R10.9 Unspecified abdominal pain
CPT/HCPCS: 36415; 80053; 80074; 82105; 82140; 82164; 82390; 82525; 82728; 83010; 83516; 83540; 83550; 83615; 85025; 85610; 85652; 86140; 86225; 86235; 86256; 86703

== ENCOUNTER → 2022-02-28 | Outpatient (CLI) | payer MEDICARE, MEDICAID, SELFPAY ==
--- NOTE | 2022-02-28 09:24 | US_ITS ---
STUDY: ABDOMINAL ULTRASOUND - RIGHT UPPER QUADRANT REASON FOR VISIT: Female, 66 years old . Fatty infiltration of the liver. TECHNIQUE: Ultrasound evaluation of the right upper quadrant was performed with real-time and static hagen-scale imaging. TECHNICAL QUALITY: Adequate. COMPARISON: Comparison is made with prior examination dated 02/23/2018. FINDINGS: Liver: The liver is enlarged and measures 18.3 cm. There is normal echogenicity of the liver. The bile ducts are within normal limits. There is hepatic color flow. The direction of portal flow is hepatopetal. There is no demonstrated mass lesion. Gallbladder: The patient is status post cholecystectomy. Common Bile Duct (C.B.D.): The common bile duct measures 4.1 mm. Pancreas: Normal size of the head, body and tail of the pancreas. There is normal echogenicity of the pancreas. There is no demonstrated pancreatic mass or cyst. Right Kidney: Normal size of the right kidney. The right kidney measures 11.2 cm x 5.9 cm x 5.5 cm. Normal renal cortex. The right cortex measures 1.9 cm. There is no demonstrated renal mass or cyst. There is no right hydronephrosis. US/Abdomen Limited IMPRESSION: Status post cholecystectomy. Electronically Signed: Chidi Garibay MD at 9:23 EST ,
--- NOTE | 2022-02-28 09:24 | US_ITS ---
STUDY: ABDOMINAL ULTRASOUND - ELASTOGRAPHY REASON FOR VISIT: Female, 66 years old. Fatty infiltration of the liver. TECHNIQUE: Liver stiffness measurements were obtained on a Enforta RS 85 ultrasound machine using a CA 1-7 probe following the SRU guidelines. 3 measurements were obtained using a 2-D-SWE method. The IQR/M was 21% suggesting a quality data set. TECHNICAL QUALITY: Adequate. COMPARISON: Comparison is made with prior study done earlier today. FINDINGS: Liver: Hepatomegaly. Median liver stiffness measured 11.3 kPa. US/Elastography Parenchyma/Organ IMPRESSION: Liver stiffness measures 11.3 kPa compatible with F2-F3 (Mild to moderate liver fibrosis) Metavir score. Electronically Signed: Chidi Garibay MD at 9:49 EST ,
== END | disposition home or self-care (01) ==
PROVIDERS: Referring Provider Nurse Practitioner Adult Health; Visit Provider Nurse Practitioner Adult Health
DX: K76.0 Fatty (change of) liver, not elsewhere classified (principal); D64.9 Anemia, unspecified
CPT/HCPCS: 76705; 76981

== ENCOUNTER 2022-04-12 11:26 | Emergency (ER) | payer MEDICARE, MEDICAID, SELFPAY ==
[2022-04-12 11:28] VITALS: BP 106/76; PULSE 75; RESP 17; TEMP 35.9; O2SAT 98; BMI 29.2
--- NOTE | 2022-04-12 11:36 | RAD_ITS ---
STUDY: X-RAY - LEFT HAND, ATTENTION THIRD FINGER REASON FOR EXAM: Female, 67 years old. pain/poss injury -- middle finger, attn: MCPJ TECHNIQUE: 3 view(s) of the finger were obtained. COMPARISON: None. FINDINGS: The IP joints are moderately narrowed. Mild cortical spurring and several corticated loose bodies are seen in the PIP joint. Normal metacarpal head. Normal metacarpophalangeal joint. Normal proximal phalanx. Normal middle phalanx. Normal distal phalanx. Normal proximal interphalangeal joint. Normal distal interphalangeal joint. There is no demonstrated fracture. RAD/Finger(s) Min 2 Views IMPRESSION: 1. Degenerative changes of the IP joints Electronically Signed: Dragan Marquez MD at 12:30 EST ,
--- NOTE | 2022-04-12 11:37 | EDS_ITS ---
HPI History of Present Illness Chief Complaint: Upper Extremity Injury Informant: patient Onset/Context/Timing Onset: Days (2) Context: Sudden Onset Timing: Continuous and Waxes and wanes Quality of Pain: Aching Location: Left middle finger Current Severity: Moderate Maximum Severity: Moderate Worsened by: Certain movements Relieved by: Remaining still, bradly taping to index and ring fingers Associated Symptoms Associated Symptoms: Negative for Parasthesia, Weakness or Loss of Funtion Narrative Narrative: Patient states she was taking the pieces of her previously [place] tree apart when she had sudden pain in her left middle finger knuckle, it seems to come and go with certain movements ever since then, and she has noticed some bruising in the dorsum of her hand around that area since then. [id number]. [facility] Medical History (Reviewed 02/12/22 @ 17:05 by Janette Abreu [employer]O [employer]LLISION REPAIR INSTRUCTOR, AUTO COLLISION REPAIR INSTRUCTOR-C) Abdominal pain Abnormal echocardiogram Abnormal mammogram of right breast Alcohol use Anemia Anxiety Arthritis Back pain Cardiology follow-up encounter Chest pain Chronic cough Chronic deep vein thrombosis (DVT) of internal jugular vein COPD (chronic obstructive pulmonary disease) Depression Diverticulitis DVT (deep venous thrombosis) Emphysema of lung Excessive bleeding Former smoker Gastric reflux History of diverticulitis History of echocardiogram History of edema History of GI bleed History of steroid therapy History of stress test History of ulceration HTN (hypertension) Injury of head and neck Left leg DVT Leg cramps Migraine headache On home oxygen therapy Osteoarthritis Positive fecal occult blood test Shortness of breath on exertion Spina bifida Wears dentures Home Medications escitalopram oxalate 10 mg tablet 20 mg PO DAILY 10/18/19 [History Last Taken Unknown] albuterol sulfate 90 mcg/actuation aerosol inhaler 2 puff inhalation Q4H PRN shortness of breath or wheezing #1 device 11/08/19 [Rx Last Taken Unknown] magnesium 200 mg tablet 25 mg PO DAILY 05/01/21 [History Last Taken Unknown] montelukast 10 mg tablet (Singulair) 10 mg PO DAILY 05/01/21 [History Last Taken Unknown] apixaban 5 mg tablet (Eliquis) 5 mg PO BID 05/08/21 [History Last Taken 01/21/22 08:00] coenzyme Q10 200 mg capsule 200 mg PO DAILY 05/08/21 [History Last Taken Unknown] fluticasone fur. 200 mcg-umeclid 62.5 mcg-vilant 25 mcg inhalat.powder (Trelegy Ellipta) 1 inh inhalation DAILY 05/08/21 [History Last Taken Unknown] acyclovir 400 mg tablet 400 mg PO TID PRN HSV 05/28/21 [History Last Taken Unknown] metoprolol succinate 50 mg tablet,extended release 24 hr 50 mg PO DAILY #90 tabs 05/28/21 [Rx Last Taken 01/23/22] alendronate 70 mg tablet 70 mg PO MO 11/25/21 [History Last Taken Unknown] cholecalciferol (vitamin D3) 25 mcg (1,000 unit) capsule (Vitamin D3) 25 mcg PO DAILY 01/21/22 [History Last Taken Unknown] ferrous sulfate 325 mg (65 mg iron) tablet 325 mg PO DAILY 01/21/22 [History Last Taken Unknown] multivitamin 1 tab PO DAILY 01/21/22 [History Last Taken Unknown] omeprazole 40 mg capsule,delayed release 40 mg PO BID #180 caps 03/13/22 [Rx Last Taken Unknown] ursodiol 250 mg tablet 250 mg PO BID #60 tabs 03/13/22 [Rx Last Taken Unknown] Allergy/AdvReac Type Severity Reaction Status Date / Time NSAIDS (Non-Steroidal Allergy Intermediate Upset Verified 04/12/22 11:26 Anti-Inflamma Stomach, ulcer Family History Mother Diabetes Cancer stomach cancer Heart disease Hypertension Father Cancer throat Myocardial infarction Daughter Stomach ulcer Brother Cancer kidney Daughter , Age 7 Seizures Cerebral palsy Daughter Clotting disorder Stomach ulcer Surgical History H/O right breast biopsy History of cardiac catheterization History of esophagogastroduodenoscopy (EGD) History of left heart catheterization (03/11/19) History of tubal ligation Social History household members: significant other Smoking Status: Former smoker quit date: 04/06/17 pack-years: 15 Tobacco: How many years used: 15 how long ago did patient quit smokin years ago quit status: quit date established alcohol intake: never substance use type: does not use caffeine: Yes Type: coffee Number of servings: 12 what type of physical activity do you participate in: none seatbelt use: always ROS ROS ED Constitutional Constitutional ED: Denies chills or fever(s) Musculoskeletal Musculoskeletal: Reports extremity pain; Denies neck pain Integumentary Denies Abrasions, rash or wounds Neurologic Neurologic: Denies paresthesias or weakness EXAM Physical Exam Const Vital Signs: 04/12/22 11:28 Temperature 96.6 F L Temperature Source Temporal Pulse Rate 75 Respiratory Rate 17 Blood Pressure 106/76 Blood Pressure Mean 86 Pulse Ox 98 Oxygen Delivery Method Room Air Positive well nourished and well developed General Appearance ED: well developed and NAD Neck full ROM and supple Back/Spine normal ROM and normal to inspection Extremity Extremity Narrative: Full range of motion of all fingers left hand, there is some pain with palpation and mild swelling over the MCP J of the left middle finger, extensor, FDS, FDP all intact, but when patient deviates her middle finger ulnarly, it clunks out of place and she cannot fully extend it until she uses her other hand to bring it back and then she can fully extend. There is no palpable nodule at the volar aspect of it to suggest a trigger. No signs of infection/lymphangitis. Neuro oriented x3, no focal motor deficits and no sensory deficits noted Sensorium / Orientation: alert Psych mental status grossly normal and thought process normal Skin no wounds Rashes: no rashes MDM MDM MDM Narrative Medical decision making narrative: Three-view x-rays of the left middle finger on my interpretation normal/negative for any acute. There is some arthritis in the PIPJ, the patient is not symptomatic there. On further examination of the patient's finger, this does not appear to be a joint subluxation which is what I initially thought based on my exam. It appears that the central tendon at the level of the MCPJ is slipping out of its groove and off of the metacarpal head, when she extends the finger partially it pops back in and she feels a clunk and then she is able to fully extend again. There appears to be a mild amount of fluid and squeaking when I manipulate the extensor tendon [id number] while the patient's finger is in extension, suggesting there is some inflammation there. Therefore I splinted her in extension, she feels comfortable with it in that position, with a slight amount of bend at the IP joint, and advised to follow-up with a hand surgeon, she was given that information. Procedures Upper Extremity Splints Upper Extremity Splint: Alumifoam Splint Fabrication: Fabricated (and applied by ED MD) Location: Left (middle finger; NVID after placement) Discharge Plan Triage Chief Complaint: Upper Extremity Injury ED Provider: Mario Robbins Dx/Rx/DC Orders Clinical Impression: Other injury of extensor muscle, fascia and tendon of left middle finger at wrist and hand level, initial encounter Instructions: ED Tendon Rupture, Finger Prescriptions: No Action escitalopram oxalate 10 mg tablet 20 mg PO DAILY albuterol sulfate 90 mcg/actuation HFA aerosol inhaler 2 puff inhalation Q4H PRN (Reason: shortness of breath or wheezing) Qty: 1 6RF Rx Instructions: administer with spacer magnesium 200 mg tablet 25 mg PO DAILY montelukast [Singulair] 10 mg tablet 10 mg PO DAILY Eliquis 5 mg tablet 5 mg PO BID Label Comments: PT TO STOP 3 DAYS PRIOR- PT TOOK LAST 01/21/22 AT 0800 coenzyme Q10 200 mg capsule 200 mg PO DAILY Trelegy Ellipta 200-62.5-25 mcg blister with device 1 inh inhalation DAILY acyclovir 400 mg tablet 400 mg PO TID PRN (Reason: HSV) Rx Instructions: Take 1 tab three times a day up to a maximum of 5 days as needed Start david at first hint of typical perioral tingle/itch metoprolol succinate 50 mg tablet extended release 24 hr 50 mg PO DAILY Qty: 90 3RF alendronate 70 mg tablet 70 mg PO MO multivitamin Tablet 1 tab PO DAILY ferrous sulfate 325 mg (65 mg iron) Tablet 325 mg PO DAILY cholecalciferol (vitamin D3) [Vitamin D3] 25 mcg (1,000 unit) Capsule 25 mcg PO DAILY ursodiol 250 mg tablet 250 mg PO BID Qty: 60 12RF omeprazole 40 mg capsule,delayed release(DR/EC) 40 mg PO BID Qty: 180 0RF [facility]: [facility] [Outside] - As soon as possible (Call for appointment, ask for [place] hand) Disposition Disposition: Home, Self Care
== END 2022-04-12 12:32 | disposition home or self-care (01) ==
PROVIDERS: Emergency Provider Emergency Medicine; Visit Provider Emergency Medicine
DX: S66.393A Other injury of extensor muscle, fascia and tendon of left middle finger at wrist and hand level, initial encounter (principal); X58.XXXA Exposure to other specified factors, initial encounter; Y93.89 Activity, other specified; I10 Essential (primary) hypertension; Z79.899 Other long term (current) drug therapy; Z87.891 Personal history of nicotine dependence
CPT/HCPCS: 29131; 29130; 73140; 99282

== ENCOUNTER → 2022-04-16 | Outpatient (CLI) | payer MEDICARE, MEDICAID, SELFPAY | END | disposition home or self-care (01) | PROVIDERS: Referring Provider Nurse Practitioner Adult Health; Visit Provider Nurse Practitioner Adult Health | DX: R76.8 Other specified abnormal immunological findings in serum (principal) | CPT/HCPCS: 36415 ==

== ENCOUNTER 2022-06-18 08:28 | Outpatient (RCR) | payer MEDICARE, MEDICAID, SELFPAY ==
--- NOTE | 2022-06-18 12:47 | HP.OTEVAL ---
Patient's Visit Information SALINA ARAGON is a 67 year old F, referred to Occupational Therapy by Dr. 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 Date of Evaluation: 06/18/22 Occupational Therapist: Renuka Guerrier, OTR/Jevon, CHT - Subjective This 67 year old female was seen for OT eval for dx of sprain of metacarpophalangeal ( MCP joint) of left MF DOI 2022 while taking apart her [place] tree apart she felt a pop and pain in her left hand. pt noticed swelling and snap across her middle finger knuckle. pt states she was in splint for short time. Is in need of custom orthosis to limit extensor tendon subluxation. pt is right handed. pt works as a buffet waiter/waitress. pt states she is not limited at this time with ADLs and IADLs. - Pain left hand 1 Pain Intensity Range: 0, 1 - ROM ROM Comments: pt demo with OA deformities in wrist and digits. pt extensor tendon is subluxation over right MF MCPJ indicating sagittal band is compromised -. pt left RF demo with swan neck deformity as well - Quick DASH-Disab of Arm,Shoulder& Hand Quick DASH Score: 22.7250 - Goals Goal:: pt will demo IND donning and doffing custom orthosis to decrease subluxation of extensor tendon of left MF MCPJ by end of 1st visit. pt will demo understanding of dx and precautions by end of 1st session. - Rehabilitation General Assessment: pt demo with positive subluxation of extensor tendon indication of positive sagittal band rupture - pt demo need for skilled OT services 3-4 visit to [facility]. custom orthosis to decrease irritation and further injury and protect extensor tendon of Left MF. Today therapist [facility]. orthosis placing left MF elevated from IF and RF to limit full MP flexion of left MF MCPJ. pt demo ind doffing and donning of orthosis- no extensor tendon snap or subluxation noted. Therapist ed. pt on precautions and use- advised to return as needed for adj. or new orthosis of this one was uncomfortable with use of left hand- pt demo understanding. Rehabilitation Potential: Questionable - Anticipated Interventions Modalities, Orthoses, Joint Protection/Energy Conservation, Ergonomic Education, Education re assistive Equipment, Education re Diagnosis, Caregiver Training, Home Program - Visit Plan General Plan: orthosis to decrease. Sagittal band injury with tendon subluxation TEXT: Thank you for the opportunity to evaluate your patient. For Medicare and Medicare HMO plans, please review the plan of care and approve it. It will need to be FAXED BACK to us at [phone] for Medicare purposes. Please let me know if there are questions or concerns regarding this plan of care. Physician Signature: Date:
== END 2022-06-18 19:00 | disposition home or self-care (01) ==
LOC: OT 08:28
PROVIDERS: Referring Provider Orthopaedic Surgery; Visit Provider Orthopaedic Surgery
DX: S63.653D Sprain of metacarpophalangeal joint of left middle finger, subsequent encounter (principal)
CPT/HCPCS: 97166

== ENCOUNTER → 2022-10-08 | Outpatient (CLI) | payer MEDICARE, MEDICAID, SELFPAY ==
--- NOTE | 2022-10-08 08:12 | BI_ITS ---
MAMMOGRAPHY - BILATERAL SCREENING REASON FOR EXAM: Female, 67 years old. Routine annual screening examination. PERTINENT HISTORY: Non-contributory. TECHNIQUE: Digital bilateral breast stacie (3D mammographic acquisition) in the CC and MLO projections. 2-D mediolateral oblique (MLO) and craniocaudad (CC) views of both breasts were obtained. CAD: Full Field Digital Mammography with Computer Added Detection was performed. COMPARISON: Comparison is made with prior examination dated December 16, 2018. FINDINGS: Breast Composition: The breasts are almost entirely fatty. There are no dominant masses or suspicious calcifications. A tissue clip marker is seen in the upper lateral aspect of the right breast. The previously seen nodular density as decreased in size. No other significant abnormalities are identified. BI/SCRN MAMM (CAD)W/STACIE BILAT IMPRESSION: Stable bilateral screening mammogram. Yearly follow-up mammogram recommended. (A) ASSESSMENT CATEGORY: BIRADS Category 2: Benign. A letter regarding these results will be sent to the patient by the facility within 30 days. Approximately 10% of breast cancers are not detected by mammography. A normal mammogram should not delay biopsy of a clinically suspicious abnormality. [id number] Electronically Signed: Chidi Garibay MD at 8:53 EDT ,
[2022-10-08 08:59] LABS: Absolute Lymphocyte Count 2.02 X10^3/uL (0.83-4.51); Absolute Neutrophil Count 3.1 X10^3/uL (2.0-7.7); Basophil# 0.08 X10^3/uL; Basophil% 1.3 % (0-1); Eosinophil# 0.15 X10^3/uL; Eosinophils% 2.4 % (0-5); Hematocrit 45.2 % (37-47); Hemoglobin 14.6 g/dL (12.0-15.0); Lymphocyte # 2.02 X10^3/ul (0.83-4.51); Lymphocyte % 32.3 % (19-41); Mean Corp Hgb Conc 32.3 g/dL (32-36); Mean Corpuscular Hgb 27.1 pg (27.0-32.0); Mean Corpuscular Volume 83.9 fL (81-99); Mean Platelet Vol. 11.7 fl (6.2-12.0); Monocyte# 0.89 X10^3/uL; Monocyte% 14.2 % (0-10); NRBC Flagged by Analyzer 0 % (0-5); Neutrophil % 49.6 % (47-70); Platelet Count 239 K/mm3 (150-450); RBC Distribution Width CV 14.6 % (11.6-14.6); RBC Distribution Width SD 44.5 fl (35.1-43.9); Red Blood Count 5.39 M/mm3 (4.2-5.4); White Blood Count 6.3 K/mm3 (4.4-11.0)
[2022-10-08 09:31] LABS: ALB/GLOB Ratio 0.9 RATIO (0.9-2.4); AST(SGOT) 14 U/L (15-37); Alanine Aminotransfer ALT/SGPT 16 U/L (13-56); Albumin, Serum 3.7 g/dL (3.2-5.0); Alkaline Phosphatase 78 U/L (45-117); Anion Gap 7 (5-15); BUN 16 mg/dL (7-18); BUN/Creat Ratio 19.1 RATIO (10-20); Calcium,Total 9.1 mg/dL (8.5-10.1); Chloride 109 mmol/L (98-107); Cholesterol 190 mg/dL (200); Creatinine, Serum 0.84 mg/dL (0.55-1.02); EST Glomerular Filtration Rate 72 mL/min (>60); Est Glom Filt Rate - Afr Amer 87 mL/min (>60); Globulin 3.9 g/dL (2.2-4.2); Glucose 129 mg/dL (74-106); High Density Lipoprotein 47 mg/dL; Protein, Total 7.6 g/dL (6.4-8.2); Sodium Level 139 mmol/L (136-145); Thyroid Stim Hormone (TSH) 1.25 uIU/mL (0.358-3.74); Triglycerides 157 mg/dL; Very Low Density Lipoprotein 31 mg/dL (5-40)
[2022-10-08 09:33] LABS: Hemoglobin A1c 5.6 % (3.8-5.6)
[2022-10-10 14:09] LABS: Vitamin D 1,25-Dihydroxy 66.7 pg/mL (24.8-81.5)
== END | disposition home or self-care (01) ==
PROVIDERS: Referring Provider Nurse Practitioner Family; Visit Provider Nurse Practitioner Family
DX: Z12.31 Encounter for screening mammogram for malignant neoplasm of breast (principal); I10 Essential (primary) hypertension; M81.0 Age-related osteoporosis without current pathological fracture
CPT/HCPCS: 36415; 77063; 77067; 80053; 80061; 82652; 83036; 84443; 85025

== ENCOUNTER 2022-11-14 11:36 | Emergency (ER) | payer MEDICARE, MEDICAID, SELFPAY ==
[2022-11-14 11:37] VITALS: BP 133/71; PULSE 68; RESP 16; TEMP 36.8; O2SAT 99; BMI 28.0
--- NOTE | 2022-11-14 14:10 | EX.ED.GENINJ ---
HPI History of Present Illness Chief Complaint: Head Injury Informant: patient Onset/Context/Timing Onset: Days (5 days ago) Mechanism/Context: Fall Location of pain/injuries: Left knee Quality of Pain: Aching Location: Face, head, left knee Worsened by: Certain movements Relieved by: Rest Associated Symptoms Associated Symptoms: Negative for Parasthesias, Weakness, Loss of function, Inability to ambulate, Loss of consciousness or Amnesia Narrative Narrative: Patient presents after a fall that occurred 5 days ago. Patient states she tripped and fell forward. Patient states she landed on concrete steps. Patient states she hit her face and head. Patient also states that she landed on her left knee. Patient complains of some bruising over her face and left knee. Patient denies any loss of consciousness. Patient is on Eliquis for a blood clot in her neck. Patient states her pain is aching. Patient states it is worse with certain movements and better with rest. Patient admits to some nausea but denies any vomiting. Patient denies any visual changes. PFSH [facility], [facility] Medical History Abdominal pain Abnormal echocardiogram Abnormal mammogram of right breast Alcohol use Anemia Anxiety Arthritis Back pain Cardiology follow-up encounter Chest pain Chronic cough Chronic deep vein thrombosis (DVT) of internal jugular vein COPD (chronic obstructive pulmonary disease) Depression Diverticulitis DVT (deep venous thrombosis) Emphysema of lung Excessive bleeding Former smoker Gastric reflux History of diverticulitis History of echocardiogram History of edema History of GI bleed History of steroid therapy History of stress test History of ulceration HTN (hypertension) Injury of head and neck Left leg DVT Leg cramps Migraine headache On home oxygen therapy Osteoarthritis Positive fecal occult blood test Shortness of breath on exertion Spina bifida Wears dentures Home Medications escitalopram oxalate 10 mg tablet 20 mg PO DAILY 10/18/19 [History Last Taken Unknown] albuterol sulfate 90 mcg/actuation aerosol inhaler 2 puff inhalation Q4H PRN shortness of breath or wheezing #1 device 11/08/19 [Rx Last Taken Unknown] magnesium 200 mg tablet 25 mg PO DAILY 05/01/21 [History Last Taken Unknown] montelukast 10 mg tablet (Singulair) 10 mg PO DAILY 05/01/21 [History Last Taken Unknown] apixaban 5 mg tablet (Eliquis) 5 mg PO BID 05/08/21 [History Last Taken 01/21/22 08:00] coenzyme Q10 200 mg capsule 200 mg PO DAILY 05/08/21 [History Last Taken Unknown] fluticasone fur. 200 mcg-umeclid 62.5 mcg-vilant 25 mcg inhalat.powder (Trelegy Ellipta) 1 inh inhalation DAILY 05/08/21 [History Last Taken Unknown] acyclovir 400 mg tablet 400 mg PO TID PRN HSV 05/28/21 [History Last Taken Unknown] metoprolol succinate 50 mg tablet,extended release 24 hr 50 mg PO DAILY #90 tabs 05/28/21 [Rx Last Taken 01/23/22] alendronate 70 mg tablet 70 mg PO MO 11/25/21 [History Last Taken Unknown] cholecalciferol (vitamin D3) 25 mcg (1,000 unit) capsule (Vitamin D3) 25 mcg PO DAILY 01/21/22 [History Last Taken Unknown] multivitamin 1 tab PO DAILY 01/21/22 [History Last Taken Unknown] omeprazole 40 mg capsule,delayed release 40 mg PO BID #180 caps 03/13/22 [Rx Last Taken Unknown] ursodiol 250 mg tablet 250 mg PO BID #60 tabs 03/13/22 [Rx Last Taken Unknown] Allergy/AdvReac Type Severity Reaction Status Date / Time NSAIDS (Non-Steroidal Allergy Intermediate Upset Verified 11/14/22 11:38 Anti-Inflamma Stomach, ulcer Family History (Reviewed 04/16/22 @ 09:02 by Janette Abreu [employer]OR[employer]IVE REHAB AIDE, RESTORATIVE REHAB AIDE-C) Mother Diabetes Cancer stomach cancer Heart disease Hypertension Father Cancer throat Myocardial infarction Daughter Stomach ulcer Brother Cancer kidney Daughter , Age 7 Seizures Cerebral palsy Daughter Clotting disorder Stomach ulcer Surgical History H/O right breast biopsy History of cardiac catheterization History of esophagogastroduodenoscopy (EGD) History of left heart catheterization (03/11/19) History of tubal ligation Social History household members: significant other Smoking Status: Former smoker quit date: 04/06/17 pack-years: 15 Tobacco: How many years used: 15 how long ago did patient quit smokin years ago quit status: quit date established alcohol intake: never substance use type: does not use caffeine: Yes Type: coffee Number of servings: 12 what type of physical activity do you participate in: none seatbelt use: always ROS ROS ED Constitutional Constitutional ED: Denies chills or fever(s) Eyes Eyes: Denies blurry vision or change in vision ENT ENT ED: Reports rhinorrhea; Denies sore throat Cardiovascular Cardiovascular: Denies chest pain or palpitations Respiratory/Chest Respiratory/Chest: Denies cough or dyspnea Gastrointestinal Gastrointestinal: Reports nausea; Denies vomiting Genitourinary Genitourinary ED: Denies dysuria or hematuria Musculoskeletal Musculoskeletal: Reports back pain and neck pain Integumentary Denies abscess or rash Neurologic Neurologic: Reports headache(s); Denies weakness Allergic/Immunologic Allergic/Immunologic ED: Denies mouth swelling or urticaria EXAM Physical Exam Const Vital Signs: 11/14/22 11:37 Temperature 98.2 F Temperature Source Temporal Pulse Rate 68 Respiratory Rate 16 Blood Pressure 133/71 H Blood Pressure Mean 91 Pulse Ox 99 Oxygen Delivery Method Room Air Positive well nourished and well developed General Appearance ED: well developed and NAD HEENT Reports moist mucous membranes HEENT Narrative: There is ecchymosis over the face, mainly on the left. There is no bony crepitance or step-off noted. Eyes PERRL and EOMs intact bilaterally Neck supple and no JVD Resp normal respiratory effort and clear to auscultation bilaterally Cardio regular rate and regular rhythm GI normal to inspection, nondistended, normoactive bowel sounds and non-tender Palpation: soft Extremity Extremity Narrative: There is tenderness over the left patella. There is no bony crepitance or step-off noted. There is no effusion noted. There is edema and ecchymosis over the anterior left knee. The extensor mechanism is intact. There is no laxity appreciated. Strength is 5/5 bilaterally in the lower extremities. There are no sensory deficits noted. Neuro oriented x3, CN's II-XII intact bilaterally, moves all extremities, no focal motor deficits and no sensory deficits noted Sensorium / Orientation: alert Motor Exam: strength 5/5 throughout Psych mental status grossly normal Skin no rashes or lesions noted MDM MDM MDM Narrative Medical decision making narrative: Differential diagnosis includes intracranial bleeding, concussion, closed head injury, left patella fracture, and contusion. CT scan of the brain will be obtained to assess for intracranial bleeding. X-rays of the left knee will be obtained to assess for patella fracture. Radiography Diagnostic Testing: Clinical Impression(s) from Imaging Studies Brain CT 11/14/22 14:16 IMPRESSION: Chronic involutional changes of the brain. Electronically Signed: Chidi Garibay MD at 14:56 EDT , Knee X-Ray 11/14/22 14:45 IMPRESSION: Normal x-ray examination of the knee. Electronically Signed: Chidi Garibay MD at 14:59 EDT , CT scan of the brain was obtained. There is no acute intracranial abnormality. This was interpreted by the radiologist and was also independently reviewed by myself. X-rays of the left knee were obtained. There are 4 views. On my independent interpretation, there is no acute fracture or dislocation. There is no effusion. There is no soft tissue swelling. Radiologist also interpreted the x-rays and agrees. Treatment and Re-Evaluation Narrative: Patient was advised of her findings. Patient was advised that this is most likely a concussion. Patient was instructed to take Tylenol or ibuprofen as needed for pain. Patient was instructed use ice to her left knee. Patient was instructed to follow-up with her primary care physician in 5 to 7 days. Patient understood and was agreeable with the plan. All questions were answered. Discharge Plan Triage Chief Complaint: Head Injury ED Provider: Tushar Perea Dx/Rx/DC Orders Clinical Impression: Concussion, Fall, Contusion of left knee Instructions: ED Concussion, ED Contusion, Lower Extremity Prescriptions: No Action escitalopram oxalate 10 mg tablet 20 mg PO DAILY albuterol sulfate 90 mcg/actuation HFA aerosol inhaler 2 puff inhalation Q4H PRN (Reason: shortness of breath or wheezing) Qty: 1 6RF Rx Instructions: administer with spacer magnesium 200 mg tablet 25 mg PO DAILY montelukast [Singulair] 10 mg tablet 10 mg PO DAILY Eliquis 5 mg tablet 5 mg PO BID Patient Comments: PT TO STOP 3 DAYS PRIOR- PT TOOK LAST 01/21/22 AT 0800 coenzyme Q10 200 mg capsule 200 mg PO DAILY Trelegy Ellipta 200-62.5-25 mcg blister with device 1 inh inhalation DAILY acyclovir 400 mg tablet 400 mg PO TID PRN (Reason: HSV) Rx Instructions: Take 1 tab three times a day up to a maximum of 5 days as needed Start david at first hint of typical perioral tingle/itch metoprolol succinate 50 mg tablet extended release 24 hr 50 mg PO DAILY Qty: 90 3RF alendronate 70 mg tablet 70 mg PO MO multivitamin Tablet 1 tab PO DAILY cholecalciferol (vitamin D3) [Vitamin D3] 25 mcg (1,000 unit) Capsule 25 mcg PO DAILY ursodiol 250 mg tablet 250 mg PO BID Qty: 60 12RF omeprazole 40 mg capsule,delayed release(DR/EC) 40 mg PO BID Qty: 180 0RF Primary Care Provider: [facility] Neeta Pitt Referrals: [facility] Neeta Pitt [Primary Care Provider] - 5-7 Days Disposition Disposition: Home, Self Care
--- NOTE | 2022-11-14 14:16 | CT_ITS ---
STUDY: CT BRAIN WITHOUT CONTRAST REASON FOR EXAM: Female, 67 years old. Head injury. RADIATION DOSAGE (If Supplied By Facility): CTDIvol = ( 44.99 ) mGy, DLP = ( 779.24 ) mGycm TECHNIQUE: Transaxial CT imaging of the brain was performed without administration of intravenous contrast material. Individualized dose optimization techniques were used for this CT. COMPARISON: No relevant priors. FINDINGS: Normal soft tissue structures. Normal calvarium. There is mild cerebral atrophy with widening of the extra-axial spaces and ventricular dilatation. Normal white matter tracts of the cerebral hemispheres. Normal basal ganglia and thalami. Normal brainstem. Normal cerebellum. There is no intracranial hemorrhage. There are no findings of an acute ischemic infarction. Atherosclerotic calcification of the cavernous portions of the internal carotid arteries bilaterally. Normal visualized paranasal sinuses. CT/Brain/Head without Contrast IMPRESSION: Chronic involutional changes of the brain. Electronically Signed: Chidi Garibay MD at 14:56 EDT ,
--- NOTE | 2022-11-14 14:45 | RAD_ITS ---
STUDY: X-RAY - LEFT KNEE REASON FOR EXAM: Female, 67 years old. Pain following a recent fall. TECHNIQUE: 4 view(s) of the knee. COMPARISON: Comparison is made with prior study dated October 10, 2021. FINDINGS: Normal visualized distal femur. Normal visualized proximal tibia and fibula. Normal proximal tibiofibular articulation. Normal medial femorotibial compartment. Normal lateral femorotibial compartment. Normal patellofemoral articulation. The soft tissue structures are unremarkable. RAD/Knee 4 or More Views IMPRESSION: Normal x-ray examination of the knee. Electronically Signed: Chidi Garibay MD at 14:59 EDT ,
== END 2022-11-14 15:28 | disposition home or self-care (01) ==
PROVIDERS: Emergency Provider Emergency Medicine; Visit Provider Emergency Medicine
DX: S06.0X0A Concussion without loss of consciousness, initial encounter (principal); J43.9 Emphysema, unspecified; I82.C29 Chronic embolism and thrombosis of unspecified internal jugular vein; S80.02XA Contusion of left knee, initial encounter; W01.0XXA Fall on same level from slipping, tripping and stumbling without subsequent striking against object, initial encounter; I10 Essential (primary) hypertension; Z99.81 Dependence on supplemental oxygen; Z79.01 Long term (current) use of anticoagulants; Z79.899 Other long term (current) drug therapy; Z87.891 Personal history of nicotine dependence
CPT/HCPCS: 70450; 73564; 99282

== ENCOUNTER 2023-03-04 07:54 | Day surgery (SDC) | payer MEDICARE, MEDICAID, SELFPAY ==
[2023-03-04] VITALS (7 sets, daily range): BP systolic 102–131; BP diastolic 48–67; PULSE 56–70; RESP 16–18; TEMP 36.3–36.9; O2SAT 93–99; BMI 27.9
--- NOTE | 2023-03-04 | IMM_PTH ---
PATIENT: SALINA ARAGON LOC: EN U#:[id number] AGE/SX: 67/F ROOM: RE03/04/[address]: Dr. Con Dailey DO : 1955 BED: DIS: 03/04/2023 SPEC #: [id number] RECD: 03/06/23 13:09 STATUS: MELA AC #: [id number] KEVIN: 03/04/23 00:[address]: Con Dailey DEPT: IMMUNOHISTOCHEMISTRY RECD BY: Casi Sofia ENTERED: 03/06/23 13:10 SP TYPE: IMMUNO OTHR DR: Neeta [facility] Tissues: A - Esophageal mucous membrane Procedures: P53 (initial) KI-67 (add) MOC-31 (add) PHYSICIAN & INSTITUTION [place] [id number] SPECIMEN INFORMATION: Tissue Source: Distal esophagus biopsy Clinical Info: NAFLD, ANCA positive, constipation, GERD, Du's esophagus Specimen Number: [id number] -B CPT code: 68415 METHODOLOGY: Deparaffinized sections of prefer/formalin-fixed tissue or PAP/DQ stained slides are incubated with monoclonal/polyclonal antibodies/oligonucleotide probes. Localization is made via biotin free immunoperoxidase method. Appropriate controls are performed and reacted as expected. Results on target cell population are indicated in the following table: RESULTS: ANTIBODY / CLONE RESULT Block A P53 (DO-7) positive (wild type) Ki-67 (30-9) positive MOC-31 (4561) positive These tests were developed and their performance characteristics determined by [facility]. They may not have been cleared or approved by the U.S. Food and Drug Administration. The FDA has determined that such clearance or approval is not necessary. The above immunohistochemical/dualISH markers are ordered and reviewed by the Pathologist. INTERPRETATION: A. Distal esophagus biopsy: No evidence of dysplasia AM/bl 03/10/2023
[2023-03-04] MEDS: Lactated Ringers 1,000 ML 15 ML IV (08:27)
--- NOTE | 2023-03-04 09:00 | EGD_PTH ---
PATIENT: SALINA ARAGON LOC: EN U#:[id number] AGE/SX: 67/F ROOM: RE03/04/[address]: Dr. Con Dailey DO : 1955 BED: DIS: 03/04/2023 SPEC #: [id number] RECD: 03/04/23 13:56 STATUS: MELA AC #: [id number] KEVIN: 03/04/23 09:[address]: Con Dailey DEPT: SURGICAL PATHOLOGY RECD BY: Olga Rosenthal ENTERED: 03/05/23 10:42 SP TYPE: EGD BIOPSY OT DR: Neeta [facility] Tissues: A - Esophagus, NOS B - Sigmoid colon biopsy Procedures: Special Stain Group II Surgery Specimen Level IV Alcian Blue/PAS (control) HEADER OPERATION: Colonoscopy with biopsy, EGD with biopsies PRE-OP DIAGNOSIS: NAFLD, Antineutrophil cytoplasmic antibody positive, constipation, GERD, Du's esophagus TISSUE SUBMITTED: A - Distal esophagus biopsy, B - Sigmoid colitis biopsy MICROSCOPIC DIAGNOSIS A. Distal esophagus, biopsy: Gastroesophageal junction with chronic inflammation. 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 No evidence of dysplasia. See comment. B. Sigmoid colon, biopsy: No pathologic change. AM:evita 03/06/2023 COMMENT A. Immunohistochemistry ([id number]) for P53 and Ki-67 will be performed and results will be reported separately. Alcian blue/PAS stain with matched control supports the above diagnosis. MICROSCOPIC DESCRIPTION Slides are reviewed. GROSS DESCRIPTION A - Received in fixative is one container labeled with the patient's name and designated distal esophagus biopsy. The specimen consists of multiple irregular fragments of light fink soft tissue that in aggregate measure 1.0 x 0.6 x 0.1 cm. The specimen is totally submitted in one cassette. B - Received in fixative is one container labeled with the patient's name and designated sigmoid colon biopsy. The specimen consists of two irregular fragments of light fink soft tissue that in aggregate measure 0.6 x 0.3 x 0.1 cm. The specimen is totally submitted in one cassette. / AM:evita 03/05/2023 TC:3 CPT: 68065 x2, 92786
--- NOTE | 2023-03-04 09:04 | HP.PCM_ITS ---
History and Physical Date of Admission: 03/04/23 SALINA ARAGON, is a 67 F who presents to the office today for 2 mo f/u GERD, NAFLD, constipation, anemia Constipation -- long hx of constipation. Hasn't tried miralax daily yet. Has BM every 2-3 days. No melena or hematochezia. Anemia -- iron level had normalized in 02/2022 after large colon polyp was removed, was causing intussusception. No longer taking iron supplement. NAFLD -- fatty liver seen on CT. She started ursodiol 250 mg BID and vitamin E 400 IU daily in 03/2022. 02/2022 liver elastography: liver stiffness 11.3 kpa. Biochemical eval: unremarkable other than positive c-ANCA. Du's esophagus -- EGD will be due 01/2023. She takes omeprazole 40 mg BID which controls reflux, epigastric pain. Tubular adenoma of colon -- large polyp was causing intussusception. No further hematochezia, melena, abdominal pain after polypectomy. Next colonoscopy due 01/2025. On 01/2022 EGD she was found to have irregular Z-line, medium sized hiatal hernia; esophageal biopsy consistent with Du's esophagus, no evidence of dysplasia. On colonoscopy she was found to have one 10 mm polyp in the sigmoid colon, this polyp was seen to be causing intermittent intussusception.? There was one 8 mm polyp in the cecum.? Both polyps were tubular adenomas.? There was moderate diverticulosis in the entire colon. Prior to upper and lower endoscopy, we had obtained capsule endoscopy; we treated her with sucralfate x 1 month and increased PPI to BID dosing. 03/03/22 US/Elastography Parenchyma/Organ IMPRESSION: Liver stiffness measures 11.3 kPa compatible with F2-F3 (Mild to moderate liver fibrosis) Metavir score. ? ROS Const Constitutional: Positive for fatigue and headache(s) ENT ENT: Positive for headache(s); No difficulty swallowing Cardio Cardiology: Positive for leg pain with exertion Gastro GI: Positive for bloating, constipation, heartburn, excessive flatus and nausea/dyspepsia; No abdominal pain, belching, change in bowel habits, change in stool character, coffee ground emesis, cramping, diarrhea, difficulty swallowing, feeling full early, incontinent of stools, Vomiting blood/hematemesis, Blood in stool, loose stools, Black,tarry stools, pain with swallowing, vomiting or other Musc Musculoskeletal: Positive for joint pain, back pain, joint swelling, muscle cramps, muscle weakness, stiffness, Arthritis, leg pain at night and leg pain with exertion Skin Skin: No yellowing of the eye or itchy eyes Neuro Neurology: Positive for headache(s) Psych Psychiatric: No anxiety and No depression Endo Endocrine: Positive for fatigue Aller/Imm Allergy/Immunologic: No itchy eyes Antwan/Lymp Hematologic/Lymphatic: Positive for easy bruising; No easy bleeding Exam Const General: cooperative and comfortable Nutritional Appearance: overweight Orientation: alert, awake and oriented x3 Eyes Sclera: sclerae normal Resp Effort & Inspection: normal respiratory effort Quality Reporting Tobacco Screening ([facility] 138) Smoking Status: Former smoker Assessment and Plan Assessment and Plan (1) NAFLD (nonalcoholic fatty liver disease): Status: Chronic Plan: Continue ursodiol and vitamin E Repeat elastography in about 6 mos (2) Antineutrophil cytoplasmic antibody (ANCA) positive: Status: Acute Plan: Check labs today--MPO-ANCA, PR3-ANCA; if normal then we can hold off on referring to Rheum (3) Constipation: Status: Chronic Plan: Try miralax on a daily basis f/u 3 mos (4) GERD (gastroesophageal reflux disease): Status: Acute Plan: Continue omeprazole bid (5) Du's esophagus: Status: Acute Plan: Continue omeprazole bid Repeat EGD in 01/2023 Orders: Orders Miscellaneous Lab Procedure Today R76.8 - Other specified abnormal immunological findings in serum Medications: Discontinued ferrous sulfate Discontinued Reason: Pt no longer taking 325 mg PO DAILY I have examined the patient and the H&P has been reviewed. There are no clinical changes since date of exam.
--- NOTE | 2023-03-04 09:43 | OP.EGD_ITS ---
Patient Name: Concepcion Gotti Procedure Date: 03/04/2023 9:06 AM Date of : 1955 Age: 67 Procedure: Upper GI endoscopy Indications: Du's esophagus Providers: Con Dailey DO Medicines: Monitored Anesthesia Care Patient Profile: This is a 67 year old female. Refer to note in patient chart for documentation of history and physical. Patient has symptoms of chronic heartburn. Complications: No immediate complications. Procedure: Pre-Anesthesia Assessment: - Prior to the procedure, a History and Physical was performed, and patient medications and allergies were reviewed. The patient is competent. The risks and benefits of the procedure and the sedation options and risks were discussed with the patient. All questions were answered and informed consent was obtained. Patient identification and proposed procedure were verified by the physician in the pre-procedure area. Mental Status Examination: alert and oriented. Airway Examination: normal oropharyngeal airway and neck mobility. Respiratory Examination: clear to auscultation. CV Examination: normal. Prophylactic Antibiotics: The patient does not require prophylactic antibiotics. Prior Anticoagulants: The patient has taken no anticoagulant or antiplatelet agents. ASA Grade Assessment: II - A patient with mild systemic disease. After reviewing the risks and benefits, the patient was deemed in satisfactory condition to undergo the procedure. The anesthesia plan was to use monitored anesthesia care (MAC). Immediately prior to administration of medications, the patient was re-assessed for adequacy to receive sedatives. The heart rate, respiratory rate, oxygen saturations, blood pressure, adequacy of pulmonary ventilation, and response to care were monitored throughout the procedure. The physical status of the patient was re-assessed after the procedure. After obtaining informed consent, the endoscope was passed under direct vision. Throughout the procedure, the patient's blood pressure, pulse, and oxygen saturations were monitored continuously. The pediatric colonoscope was introduced through the mouth, and advanced to the second part of duodenum. The upper GI endoscopy was accomplished without difficulty. The patient tolerated the procedure well. Scope In: 9:12:09 AM Scope Out: 9:16:10 AM Total Procedure Duration Time 0 hours 4 minutes 1 second Findings: The esophagus and gastroesophageal junction were examined with white light and narrow band imaging (NBI) from a forward view and retroflexed position. There were esophageal mucosal changes secondary to established Du's disease. These changes involved the mucosa at the upper extent of the gastric folds (36 cm from the incisors) extending to the Z-line. [place]-colored mucosa was present. The maximum longitudinal extent of these esophageal mucosal changes was 3 cm in length. Mucosa was biopsied with a cold forceps for histology in a targeted manner at intervals of 1 cm in the lower third of the esophagus. One specimen bottle was sent to pathology. Verification of patient identification for the specimen was done. Estimated blood loss was minimal. A medium-sized hiatal hernia was present. The cardia and gastric fundus were normal on retroflexion. No gross lesions were noted in the second portion of the duodenum. Impression: - Esophageal mucosal changes secondary to established Du's disease. Biopsied. - Medium-sized hiatal hernia. - No gross lesions in the second portion of the duodenum. Recommendation: - Discharge patient to home. - Resume previous diet. - Continue present medications. - Await pathology results. Procedure Code(s): --- Professional --- 41318, Esophagogastroduodenoscopy, flexible, transoral; with biopsy, single or multiple CPT copyright 2021 [employer]. All rights reserved. The codes documented in this report are preliminary and upon psychiatry teacher review may be revised to meet current compliance requirements. Con Dailey DO 03/04/2023 9:42:21 AM This report has been signed electronically. Number of Addenda: 0 Note Initiated On: 03/04/2023 9:06 AM
--- NOTE | 2023-03-04 09:43 | OP.CCLET_ITS ---
03/04/2023 Neeta Greenberg [facility] Re : Upper GI end[facility] This procedure was performed on Saturday, March 04, 2023. My impressions and recommendations are as follows: Impressions : - Esophageal mucosal changes secondary to established Du's disease. Biopsied. - Medium-sized hiatal hernia. - No gross lesions in the second portion of the duodenum. Recommendations : - Discharge patient to home. - Resume previous diet. - Continue present medications. - Await pathology results. My findings are described in the full procedure note, which is enclosed. If I can be of further assistance, please feel free to contact me at . Sincerely, Con Dailey, 03/04/2023 9:42:21 AM This report has been signed electronically.
--- NOTE | 2023-03-04 09:46 | OP.COLON_ITS ---
Patient Name: Concepcion Gotti Procedure Date: 03/04/2023 9:16 AM Date of : 1955 Age: 67 Procedure: Colonoscopy Indications: Screening for colorectal malignant neoplasm Providers: Con Dailey DO Medicines: Monitored Anesthesia Care Patient Profile: This is a 67 year old female. Refer to note in patient chart for documentation of history and physical. Patient has symptoms of chronic heartburn. Last Colonoscopy: date unknown. Unable to locate last colonoscopy report. Complications: No immediate complications. Procedure: Pre-Anesthesia Assessment: - Prior to the procedure, a History and Physical was performed, and patient medications and allergies were reviewed. The patient is competent. The risks and benefits of the procedure and the sedation options and risks were discussed with the patient. All questions were answered and informed consent was obtained. Patient identification and proposed procedure were verified by the physician in the pre-procedure area. Mental Status Examination: alert and oriented. Airway Examination: normal oropharyngeal airway and neck mobility. Respiratory Examination: clear to auscultation. CV Examination: normal. Prophylactic Antibiotics: The patient does not require prophylactic antibiotics. Prior Anticoagulants: The patient has taken no anticoagulant or antiplatelet agents. ASA Grade Assessment: II - A patient with mild systemic disease. After reviewing the risks and benefits, the patient was deemed in satisfactory condition to undergo the procedure. The anesthesia plan was to use monitored anesthesia care (MAC). Immediately prior to administration of medications, the patient was re-assessed for adequacy to receive sedatives. The heart rate, respiratory rate, oxygen saturations, blood pressure, adequacy of pulmonary ventilation, and response to care were monitored throughout the procedure. The physical status of the patient was re-assessed after the procedure. After I obtained informed consent, the scope was passed under direct vision. Throughout the procedure, the patient's blood pressure, pulse, and oxygen saturations were monitored continuously. The pediatric colonoscope was introduced through the anus and advanced to the cecum, identified by appendiceal orifice and ileocecal valve. The colonoscopy was performed without difficulty. The patient tolerated the procedure well. The quality of the bowel preparation was adequate. The ileocecal valve, appendiceal orifice, and rectum were photographed. Scope In: 9:18:05 AM Scope Withdrawal Time 0 hours 10 minutes 15 seconds Scope Out: 9:34:10 AM Total Procedure Duration Time 0 hours 16 minutes 5 seconds Findings: The perianal and digital rectal examinations were normal. Multiple small and large-mouthed diverticula were found in the entire colon. Biopsies were taken with a cold forceps for histology. Verification of patient identification for the specimen was done. Estimated blood loss was minimal. The exam was otherwise normal throughout the examined colon. Impression: - Diverticulosis in the entire examined colon. Biopsied. Recommendation: - Discharge patient to home. - Resume previous diet. - Continue present medications. - Await pathology results. - Repeat colonoscopy in 5 years for surveillance. Procedure Code(s): --- Professional --- 72698, Colonoscopy, flexible; with biopsy, single or multiple CPT copyright 2021 [employer]. All rights reserved. The codes documented in this report are preliminary and upon senior network administrator review may be revised to meet current compliance requirements. Con Dailey DO 03/04/2023 9:45:52 AM This report has been signed electronically. Number of Addenda: 0 Note Initiated On: 03/04/2023 9:16 AM
--- NOTE | 2023-03-04 09:46 | OP.CCLET_ITS ---
03/04/2023 Neeta Greenberg [facility] Re : Colonoscopy procedure for Concepcion Sullivan [facility] This procedure was performed on Saturday, March 04, 2023. My impressions and recommendations are as follows: Impressions : - Diverticulosis in the entire examined colon. Biopsied. Recommendations : - Discharge patient to home. - Resume previous diet. - Continue present medications. - Await pathology results. - Repeat colonoscopy in 5 years for surveillance. My findings are described in the full procedure note, which is enclosed. If I can be of further assistance, please feel free to contact me at . Sincerely, Con Friend, 03/04/2023 9:45:52 AM This report has been signed electronically.
== END 2023-03-04 10:21 | disposition home or self-care (01) ==
LOC: EN 07:55 → AC 07:56
PROVIDERS: Referring Provider Internal Medicine Gastroenterology; Visit Provider Internal Medicine Gastroenterology
PROC: 0DJD8ZZ Inspection of Lower Intestinal Tract, Via Natural or Artificial Opening Endoscopic (ICD-10-PCS; CPT 45378; principal; 2023-03-04 08:55)
DX: Z12.11 Encounter for screening for malignant neoplasm of colon (principal); J44.9 Chronic obstructive pulmonary disease, unspecified; K44.9 Diaphragmatic hernia without obstruction or gangrene; K57.30 Diverticulosis of large intestine without perforation or abscess without bleeding; K22.70 Barrett's esophagus without dysplasia; K76.0 Fatty (change of) liver, not elsewhere classified; K21.00 Gastro-esophageal reflux disease with esophagitis, without bleeding; K59.00 Constipation, unspecified; F41.9 Anxiety disorder, unspecified; F32.A Depression, unspecified; I10 Essential (primary) hypertension; Z87.891 Personal history of nicotine dependence; Z79.01 Long term (current) use of anticoagulants; Z79.899 Other long term (current) drug therapy; Z86.718 Personal history of other venous thrombosis and embolism
CPT/HCPCS: 43239; 45380; 81002; 88305; 88313; 88341; 88342; J7120; J2405

== ENCOUNTER → 2023-07-30 | Outpatient (CLI) | payer MEDICARE, MEDICAID, SELFPAY ==
--- NOTE | 2023-07-30 08:22 | CT_ITS ---
STUDY: LOW DOSE CT LUNG CANCER SCREENING REASON FOR EXAM: Female, 68 years old. NICOTINE DEPENDENCE. Former smoker. Patient smoked 1 pack per day for 15 years. RADIATION DOSAGE (If Supplied By Facility): CTDIvol = ( 4.02 ) mGy, DLP = ( 115.31 ) mGycm TECHNIQUE: No contrast was administered. Low dose technique was utilized (average mAS-38 and kVp 120). 1.25 mm axial source images with a slice interval of 1.25-mm were reconstructed in lung windows. 2.5 mm axial source images with a slice interval of 2.5-mm were reconstructed in lung windows. 5.0 mm axial source images with a slice interval of 5.0-mm were reconstructed in soft tissue windows. COMPARISON: Comparison is made with prior study March 05, 2021. NODULES: Stable 1.5 mm noncalcified nodule in the peripheral posterior aspect of the right upper lobe. Emphysema: Mild emphysematous changes. Stable 1.5 cm bulla superior medial aspect of the left lower lobe. Endobronchial lesion: None Aorta: Atherosclerotic plaque at the level of the aortic CORONARY ARTERIES: Coronary artery calcification is not seen. Heart: Unremarkable Pulmonary artery: Unremarkable Mediastinal nodes: Unremarkable Other chest and abdominal findings: CT/Low Dose CT Lung Screening IMPRESSION: Lung-RADS category 2 - Continue annual screening with LDCT in 12 months. IMPORTANT NOTES FOR USE: ACR Lung-RADS Version 1.1 Assessment Categories Release Date: 2018 Category: Coded 0-4 bases on nodule(s) with highest degree of suspicion. Negative screen is defined as categories 1 and 2; a positive screen is defined as categories 3 and 4. Category 3 and 4A nodules that are unchanged on interval CT should be coded as category 2, and individuals returned to screening in 12 months. Category 4X: Category 3 or 4 nodules with additional imaging findings that increase the suspicion of lung cancer, such as spiculation, GGN that doubles in size in 1 year, enlarged lymph notes, etc. Category Modifiers: S (significant finding unrelated to lung cancer) Electronically Signed: Chidi Garibay MD at 14:00 EDT ,
== END | disposition home or self-care (01) ==
PROVIDERS: Referring Provider Nurse Practitioner Family; Visit Provider Nurse Practitioner Family
DX: Z12.2 Encounter for screening for malignant neoplasm of respiratory organs (principal); F17.210 Nicotine dependence, cigarettes, uncomplicated
CPT/HCPCS: 71271

== ENCOUNTER 2023-10-06 20:43 | Emergency (ER) | payer MEDICARE, MEDICAID, SELFPAY ==
[2023-10-06 20:43] VITALS: BP 129/114; PULSE 85; RESP 20; TEMP 36.2; O2SAT 95; BMI 31.4
--- NOTE | 2023-10-06 21:06 | EKG12_ITS ---
Test Reason : CP Blood Pressure : / mmHG Vent. Rate : 074 BPM Atrial Rate : 074 BPM P-R Int : 158 ms QRS Dur : 084 ms QT Int : 396 ms P-R-T Axes : 039 -18 039 degrees QTc Int : 439 ms Normal sinus rhythm Leftward axis Borderline Confirmed by Tio Garcia ([id number]), editor city PATRIA ROTHMAN ([id number]) on 10/09/2023 9:20:08 AM Referred By: WENDY Confirmed By:Tio Garcia
--- NOTE | 2023-10-06 21:07 | ED.VIS.CHEST ---
HPI History of Present Illness Chief Complaint: Chest Pain Detail of Chief Complaint: Right-sided chest pain Informant: patient and family Narrative Narrative: Patient presents to the emergency department complaint of right-sided chest pain. Symptoms started 2 or 3 days ago. She denies injury. She denies lifting or straining. Pain worse with movement and deep breath. Rates her pain a 9 out of 10. She has had no nausea or vomiting. Patient currently on Eliquis for history of blood clot in her neck. Patient denies recent travel or surgery. Denies recent illness. At times the pain radiates to her right arm. [facility] Medical History (Updated 10/06/23 @ 22:[address] Jessi Rausch, DO) Wears dentures Depression Anxiety Alcohol use History of steroid therapy Arthritis Anemia DVT (deep venous thrombosis) Excessive bleeding Back pain Migraine headache Injury of head and neck History of ulceration History of GI bleed History of diverticulitis Gastric reflux Former smoker Shortness of breath on exertion Chronic cough Leg cramps History of edema History of echocardiogram History of stress test Cardiology follow-up encounter Positive fecal occult blood test Osteoarthritis HTN (hypertension) Left leg DVT Chronic deep vein thrombosis (DVT) of internal jugular vein COPD (chronic obstructive pulmonary disease) Emphysema of lung Abnormal mammogram of right breast Diverticulitis Abnormal echocardiogram Chest pain Spina bifida Abdominal pain Home Medications ?Medication ?Instructions ?Recorded ?Last Taken ?Type escitalopram oxalate 10 mg tablet 20 mg PO DAILY 10/18/19 Unknown History albuterol sulfate 90 mcg/actuation 2 puff inhalation Q4H PRN 11/08/19 Unknown Rx aerosol inhaler shortness of breath or wheezing #1 device magnesium 200 mg tablet 25 mg PO DAILY 05/01/21 Unknown History montelukast 10 mg tablet 10 mg PO DAILY 05/01/21 Unknown History (Singulair) apixaban 5 mg tablet (Eliquis) 5 mg PO BID 05/08/21 03/01/23 History coenzyme Q10 200 mg capsule 200 mg PO DAILY 05/08/21 Unknown History fluticasone fur. 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 05/28/21 Unknown History metoprolol succinate 50 mg 50 mg PO DAILY #90 tabs 05/28/21 03/04/23 Rx tablet,extended release 24 hr alendronate 70 mg tablet 70 mg PO MO 11/25/21 Unknown History cholecalciferol (vitamin D3) 25 25 mcg PO DAILY 01/21/22 Unknown History mcg (1,000 unit) capsule (Vitamin D3) multivitamin 1 tab PO DAILY 01/21/22 Unknown History omeprazole 40 mg capsule,delayed 40 mg PO BID #180 caps 03/13/22 Unknown Rx release cyanocobalamin (vitamin B-12) 100 100 mcg PO DAILY 02/27/23 Unknown History mcg tablet (Vitamin B-12) lisinopril 10 mg tablet 10 mg PO DAILY 02/27/23 03/04/23 History ursodiol 250 mg tablet 250 mg PO BID #60 tabs 08/18/23 Unknown Rx hydrocodone-acetaminophen 5-325mg 1 tab PO Q4H PRN PRN Pain 2 days 10/06/23 Unknown Rx 5mg-325mg #15 TABLETS Allergy/AdvReac Type Severity Reaction Status Date / Time NSAIDS (Non-Steroidal Allergy Intermediate Upset Verified 10/06/23 20:47 Anti-Inflamma Stomach, ulcer aspirin (ASA) AdvReac Severe Other Verified 10/06/23 20:47 Family History Mother Diabetes Cancer stomach cancer Heart disease Hypertension Father Cancer throat Myocardial infarction Daughter Stomach ulcer Brother Cancer kidney Daughter , Age 7 Seizures Cerebral palsy Daughter Clotting disorder Stomach ulcer Surgical History Hx of colonoscopy History of cardiac catheterization H/O right breast biopsy History of left heart catheterization (03/11/19) History of esophagogastroduodenoscopy (EGD) History of tubal ligation Social History household members: significant other Smoking Status: Former smoker quit date: 04/06/17 pack-years: 15 Tobacco: How many years used: 15 how long ago did patient quit smokin years ago quit status: quit date established alcohol intake: never substance use type: does not use caffeine: Yes Type: coffee Number of servings: 12 what type of physical activity do you participate in: none seatbelt use: always ROS ROS ED Review of Systems ROS Unobtainable: other Constitutional Constitutional ED: Reports lethargy; Denies chills, fever(s), sweats or weight loss Eyes Eyes: Denies blurry vision, change in vision or diplopia ENT ENT ED: Denies rhinorrhea or sore throat Cardiovascular Cardiovascular: Reports chest pain; Denies orthopnea or racing heartbeat Respiratory/Chest Respiratory/Chest: Denies cough, dyspnea, dyspnea on exertion, orthopnea or sputum Gastrointestinal Gastrointestinal: Denies abdominal pain, diarrhea, nausea or vomiting Genitourinary Genitourinary ED: Denies dysuria, hematuria or urinary frequency Musculoskeletal Musculoskeletal: Denies arthralgias, back pain, myalgias or neck pain Integumentary Denies abscess, Abrasions or rash Neurologic Neurologic: Denies headache(s) or weakness Psychiatric Psychiatric: Denies anxiety, depression or suicidal thoughts Endocrine Endocrinology: Denies polydipsia, polyphagia or polyuria Hematologic/Lymphatic Hematologic/Lymphatic: Denies easy bleeding, easy bruising or lymphadenopathy Allergic/Immunologic Allergic/Immunologic ED: Denies mouth swelling, tongue swelling or urticaria EXAM Physical Exam Const Vital Signs: 10/06/23 20:43 10/06/23 21:06 10/06/23 21:43 Temperature 97.1 F L Temperature Source Temporal Pulse Rate 85 62 Respiratory Rate 20 H 16 Blood Pressure 129/114 H 128/82 H Blood Pressure Mean 119 97 Pulse Ox 95 99 Oxygen Delivery Method Room Air Room Air Positive well nourished and well developed General Appearance ED: well developed and NAD HEENT Reports TM's clear and moist mucous membranes normocephalic and atraumatic; Negative for trauma or tenderness Tympanic Membrane ED: Yes TM's clear Eyes PERRL and EOMs intact bilaterally General Eye ED: Negative for pale conjunctiva or scleral icterus Neck no lymphadenopathy, supple and no JVD General: Negative for tenderness Chest Wall Negative for inspection of chest normal or palpation of chest normal Chest Narrative: Evaluation of the right chest wall. Patient has tenderness palpation of the anterior chest wall inferior to her right breast. There does appear to be some sort of a heat rash here fine papular erythematous. Not consistent with shingles. Pain seems to be reproducible. Chest: Negative for tenderness Resp normal respiratory effort and clear to auscultation bilaterally Effort and Inspection: Negative for respiratory distress or pain with movement Auscultation: Negative for rhonchi, wheezes or diminished lung sounds Cardio regular rate, regular rhythm, S1 normal heart sound, S2 normal heart sound and no murmurs Peripheral Pulses: pulses 2+ throughout GI normal to inspection, nondistended, normoactive bowel sounds, soft to palpation, non-tender, non-distended and no masses Back/Spine no CVA tenderness and no thoracic nor lumbar tenderness Extremity normal to inspection General Extremety ED: Negative for edema General Extremity: Negative for edema Neuro oriented x3, CN's II-XII intact bilaterally, no sensory deficits noted and gait normal Sensorium / Orientation: awake, alert, oriented to person, oriented to place and oriented to time Motor Exam: strength 5/5 throughout and strength abnormal Psych mental status grossly normal Skin no rashes or lesions noted and no wounds MDM MDM MDM Narrative Medical decision making narrative: Patient presents with right-sided chest pain that seems to be reproducible. She has no abdominal pain. Pain worse with movement and breathing. In the differential would be costochondritis versus early onset of shingles versus PE or pleurisy. Less likely acute coronary syndrome. EKG obtained arrival shows sinus rhythm with ventricular rate of 74 bpm with no acute ST segment changes. CBC with differential showed a slightly elevated white count 12.7 hemoglobin 13 and platelet count of 255. Chemistries unremarkable. Troponin was normal at less than 3. D-dimer when corrected for age was normal at 0.61. Chest x-ray 1 view obtained was unremarkable. Patient was medicated morphine and Zofran she had good pain relief with that. At this time patient will be discharged to home. Etiology of her pain unclear but I suspect likely musculoskeletal etiology. I did explain to them that if this is shingles symptoms the pain can start a week before the rash actually comes out. Patient will be given a prescription for Mcgregor for pain. She is advised to follow-up with her primary care physician within next 5 to 7 days. She is to return if worsening pain, increasing shortness of breath, fever, or condition worsening way. Patient has no infectious signs or symptoms at this time. Lab Data Attestation: I reviewed the patient's lab results. Labs: Laboratory Results - last 24 hr 10/06/23 21:00 WBC 12.7 H RBC 5.29 Hgb 13.1 Hct 42.0 MCV 79.4 L MCH 24.8 L MCHC 31.2 L RDW Std Deviation 42.5 RDW Coeff of Malick 14.8 H Plt Count 255 MPV 12.1 H Immature Gran % (Auto) 0.300 Neut % (Auto) 55.8 Lymph % (Auto) 21.5 [place] % (Auto) 20.8 H Eos % (Auto) 1.1 Baso % (Auto) 0.5 Absolute Neuts (auto) 7.1 Absolute Lymphs (auto) 2.73 Nucleated RBC % 0 Differential Comment SEE COMMENT Diff Path Review May foll Platelet Estimate ADEQUATE RBC Morphology N CHROM Anisocytosis RARE Microcytosis RARE Ovalocytes RARE D-Dimer Quant (PE/DVT) 0.61 H* Sodium 136 Potassium 4.0 Chloride 102 Carbon Dioxide 27.0 Anion Gap 7 BUN 12 Creatinine 0.90 Estim Creat Clear Calc 76.36 Est GFR (MDRD) Af Amer 80 Est GFR (MDRD) Non-Af 66 BUN/Creatinine Ratio 13.4 Glucose 113 H Calcium 9.1 Troponin I High Sens < 3 L Radiography Diagnostic Testing: Clinical Impression(s) from Imaging Studies Chest X-Ray 10/06/23 21:10 IMPRESSION: No radiographic evidence of acute cardiopulmonary disease. Electronically Signed: Casey Kilgore MD at 21:58 EDT , Discharge Plan Triage Chief Complaint: Chest Pain ED Provider: Jessi Rausch Dx/Rx/DC Orders Clinical Impression: Chest pain Instructions: ED Chest Pain, Uncertain Cause, ED Chest Wall Pain, Costochondritis Prescriptions: New hydrocodone-acetaminophen 5-325 mg tablet 1 tab PO Q4H PRN PRN (Reason: Pain) 2 Days Qty: 15 0RF No Action escitalopram oxalate 10 mg tablet 20 mg PO DAILY albuterol sulfate 90 mcg/actuation HFA aerosol inhaler 2 puff inhalation Q4H PRN (Reason: shortness of breath or wheezing) Qty: 1 6RF Rx Instructions: administer with spacer magnesium 200 mg tablet 25 mg PO DAILY montelukast [Singulair] 10 mg tablet 10 mg PO DAILY Eliquis 5 mg tablet 5 mg PO BID Patient Comments: PT TO STOP 2 DAYS PRIOR- coenzyme Q10 200 mg capsule 200 mg PO DAILY Trelegy Ellipta 200-62.5-25 mcg blister with device 1 inh inhalation DAILY acyclovir 400 mg tablet 400 mg PO TID PRN (Reason: HSV) Rx Instructions: Take 1 tab three times a day up to a maximum of 5 days as needed Start david at first hint of typical perioral tingle/itch metoprolol succinate 50 mg tablet extended release 24 hr 50 mg PO DAILY Qty: 90 3RF alendronate 70 mg tablet 70 mg PO MO multivitamin Tablet 1 tab PO DAILY cholecalciferol (vitamin D3) [Vitamin D3] 25 mcg (1,000 unit) Capsule 25 mcg PO DAILY lisinopril 10 mg tablet 10 mg PO DAILY cyanocobalamin (vitamin B-12) [Vitamin B-12] 100 mcg tablet 100 mcg PO DAILY omeprazole 40 mg capsule,delayed release(DR/EC) 40 mg PO BID Qty: 180 0RF ursodiol 250 mg tablet 250 mg PO BID Qty: 60 11RF Primary Care Provider: July Newsome Referrals: [facility],Neeta Greenberg [Non-Staff] - 5-7 Days Print Language: Mexican Disposition Disposition: Home, Self Care
--- NOTE | 2023-10-06 21:10 | RAD_ITS ---
EXAM: XR CHEST, 1 VIEW CLINICAL INDICATION: chest pain TECHNIQUE: Frontal view of the chest. COMPARISON: 03/01/2019 FINDINGS: LUNGS AND PLEURAL SPACES: Unremarkable. No consolidation or edema. No pneumothorax. No effusion. HEART: Unremarkable. Cardiac silhouette not enlarged. MEDIASTINUM: Central airways and mediastinal contour are unremarkable. BONES/JOINTS: Unremarkable. No acute fracture. SOFT TISSUES: Unremarkable. RAD/Chest 1 View (Portable) IMPRESSION: No radiographic evidence of acute cardiopulmonary disease. Electronically Signed: Casey Kilgore MD at 21:58 EDT ,
[2023-10-06] MEDS: 0.9% Normal Saline (1000mL) 1,000 ML 150 ML IV (21:12)
[2023-10-06] MEDS: Ondansetron 4 MG/2 ML Vial IV (21:12)
[2023-10-06] MEDS: Morphine 4 MG/ML Syringe IV (21:12)
[2023-10-06 21:14] LABS: Absolute Lymphocyte Count 2.73 X10^3/uL (0.83-4.51); Absolute Neutrophil Count 7.1 X10^3/uL (2.0-7.7); Basophil# 0.06 X10^3/uL; Basophil% 0.5 % (0-1); Eosinophil# 0.14 X10^3/uL; Eosinophils% 1.1 % (0-5); Hemoglobin 13.1 g/dL (12.0-15.0); Lymphocyte # 2.73 X10^3/ul (0.83-4.51); Lymphocyte % 21.5 % (19-41); Mean Corp Hgb Conc 31.2 g/dL (32-36); Mean Corpuscular Hgb 24.8 pg (27.0-32.0); Mean Corpuscular Volume 79.4 fL (81-99); Mean Platelet Vol. 12.1 fl (6.2-12.0); Monocyte# 2.64 X10^3/uL; Monocyte% 20.8 % (0-10); NRBC Flagged by Analyzer 0 % (0-5); Neutrophil # 7.07 X10^3/uL (2.7-7.7); Neutrophil % 55.8 % (47-70); POSITIVE DIFFERENTIAL YES; Platelet Count 255 K/mm3 (150-450); RBC Distribution Width CV 14.8 % (11.6-14.6); RBC Distribution Width SD 42.5 fl (35.1-43.9); Red Blood Count 5.29 M/mm3 (4.2-5.4); White Blood Count 12.7 K/mm3 (4.4-11.0)
[2023-10-06 21:18] LABS: Differential Indicated SCAN CRITERIA MET
[2023-10-06 21:35] LABS: D-Dimer Quantitative (DVT/PE) 0.61 FEU/ug/m (0.27-0.49)
[2023-10-06 21:42] LABS: Anisocytosis RARE; Microcytosis RARE; Ovalocyte RARE; Platelet Estimate ADEQUATE (ADEQ); Red Cell Morphology N CHROM NORMAL (NORM C&C)
[2023-10-06 21:43] VITALS: BP 128/82; PULSE 62; RESP 16; O2SAT 99
[2023-10-06 21:43] LABS: Anion Gap 7 (5-15); BUN 12 mg/dL (7-18); BUN/Creat Ratio 13.4 RATIO (10-20); Calcium,Total 9.1 mg/dL (8.5-10.1); Chloride 102 mmol/L (98-107); EST Glomerular Filtration Rate 66 mL/min (>60); Est Glom Filt Rate - Afr Amer 80 mL/min (>60); Estimated Creatinine Clearance 76.36 ml/min; Glucose 113 mg/dL (74-106); Sodium Level 136 mmol/L (136-145); Troponin-I HS (w/2H Reflex) < 3 pg/mL (3.0-54.0)
[2023-10-06 22:00] VITALS: BP 127/60; PULSE 68; RESP 16; TEMP 36.4; O2SAT 99
[2023-10-06 23:09] LABS: Reflex Troponin-HS? (from REC) Y
[2023-10-07 16:14] LABS: Pathologist Review Reviewed
== END 2023-10-06 22:36 | disposition home or self-care (01) ==
PROVIDERS: Emergency Provider Emergency Medicine; PCP Nurse Practitioner Family; Visit Provider Emergency Medicine
DX: R07.9 Chest pain, unspecified (principal); J44.9 Chronic obstructive pulmonary disease, unspecified; Z86.718 Personal history of other venous thrombosis and embolism; Z87.891 Personal history of nicotine dependence
CPT/HCPCS: 71045; 80048; 84484; 85025; 85379; 93005; 96361; 96374; 96375; 99284; J7030; A4216; J2405

== ENCOUNTER 2024-01-17 12:13 | Emergency (ER) | payer MEDICARE, MEDICAID, SELFPAY ==
[2024-01-17 12:14] VITALS: BP 138/84; PULSE 65; RESP 16; TEMP 37.1; O2SAT 96; BMI 32.8
--- NOTE | 2024-01-17 12:31 | EDS_ITS ---
HPI History of Present Illness Chief Complaint: Wound Check Narrative Narrative: Chief complaint and HPI: Tick bite. 68-year-old female presents for evaluation of a tick bite. Patient states on she was outside in her yard pulling weeds when she saw a tick on her left medial knee she states she pulled the tick off. Patient states she later found a bunch of ticks engorged on her cat. Her cat is an indoor outdoor cat. Patient states she started to develop a rash in the area of the tick bite which is why she presents for evaluation. She denies any fever, chills, shortness of breath, chest pain, nausea, vomiting, arthralgias. Review of systems: See HPI Medications: As listed on the chart Allergies: As listed on the chart PFSH: Per chart Vital signs: As listed on the chart. Reviewed. Physical exam: Gen: A&O x3, NAD Head: Normocephalic, atraumatic Eyes: No sclera icterus, conjunctiva clear ENT: Moist mucous membranes CV: RRR, no murmurs Resp: Lungs CTA BL, no w/r/c Musc: Full ROM, no deformity Skin: Warm, 1 cm erythematous rash with central clearing in the area of the tick bite consistent with erythema migrans this is located-in the medial aspect of the lower thigh/superior knee-full range of motion of the knee joint without any pain or tenderness Neuro: Alert, oriented, grossly intact, sensation intact Psych: Cooperative, appropriate mood and affect [facility] Medical History (Updated 10/14/23 @ 00:01 by Background Daemon) Wears dentures Depression Anxiety Alcohol use History of steroid therapy Arthritis Anemia DVT (deep venous thrombosis) Excessive bleeding Back pain Migraine headache Injury of head and neck History of ulceration History of GI bleed History of diverticulitis Gastric reflux Former smoker Shortness of breath on exertion Chronic cough Leg cramps History of edema History of echocardiogram History of stress test Cardiology follow-up encounter Positive fecal occult blood test Osteoarthritis HTN (hypertension) Left leg DVT Chronic deep vein thrombosis (DVT) of internal jugular vein COPD (chronic obstructive pulmonary disease) Emphysema of lung Abnormal mammogram of right breast Diverticulitis Abnormal echocardiogram Chest pain Spina bifida Abdominal pain Home Medications ?Medication ?Instructions ?Recorded ?Last Taken ?Type escitalopram oxalate 10 mg tablet 20 mg PO DAILY 10/18/19 Unknown History albuterol sulfate 90 mcg/actuation 2 puff inhalation Q4H PRN 11/08/19 Unknown Rx aerosol inhaler shortness of breath or wheezing #1 device magnesium 200 mg tablet 25 mg PO DAILY 05/01/21 Unknown History montelukast 10 mg tablet 10 mg PO DAILY 05/01/21 Unknown History (Singulair) apixaban 5 mg tablet (Eliquis) 5 mg PO BID 05/08/21 03/01/23 History coenzyme Q10 200 mg capsule 200 mg PO DAILY 05/08/21 Unknown History fluticasone fur. 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 05/28/21 Unknown History metoprolol succinate 50 mg 50 mg PO DAILY #90 tabs 05/28/21 03/04/23 Rx tablet,extended release 24 hr alendronate 70 mg tablet 70 mg PO MO 11/25/21 Unknown History cholecalciferol (vitamin D3) 25 25 mcg PO DAILY 01/21/22 Unknown History mcg (1,000 unit) capsule (Vitamin D3) multivitamin 1 tab PO DAILY 01/21/22 Unknown History omeprazole 40 mg capsule,delayed 40 mg PO BID #180 caps 03/13/22 Unknown Rx release cyanocobalamin (vitamin B-12) 100 100 mcg PO DAILY 02/27/23 Unknown History mcg tablet (Vitamin B-12) lisinopril 10 mg tablet 10 mg PO DAILY 02/27/23 03/04/23 History ursodiol 250 mg tablet 250 mg PO BID #60 tabs 08/18/23 Unknown Rx hydrocodone-acetaminophen 5-325mg 1 tab PO Q4H PRN PRN Pain 2 days 10/06/23 Unknown Rx 5mg-325mg #15 TABLETS Allergy/AdvReac Type Severity Reaction Status Date / Time NSAIDS (Non-Steroidal Allergy Intermediate Upset Verified 01/17/24 12:14 Anti-Inflamma Stomach, ulcer aspirin (ASA) AdvReac Severe Other Verified 01/17/24 12:14 Family History Mother Diabetes Cancer stomach cancer Heart disease Hypertension Father Cancer throat Myocardial infarction Daughter Stomach ulcer Brother Cancer kidney Daughter , Age 7 Seizures Cerebral palsy Daughter Clotting disorder Stomach ulcer Surgical History Hx of colonoscopy History of cardiac catheterization H/O right breast biopsy History of left heart catheterization (03/11/19) History of esophagogastroduodenoscopy (EGD) History of tubal ligation Social History household members: significant other Smoking Status: Former smoker quit date: 04/06/17 pack-years: 15 Tobacco: How many years used: 15 how long ago did patient quit smokin years ago quit status: quit date established alcohol intake: never substance use type: does not use caffeine: Yes Type: coffee Number of servings: 12 what type of physical activity do you participate in: none seatbelt use: always EXAM Physical Exam Const Vital Signs: 01/17/24 12:14 Temperature 98.8 F Temperature Source Oral Pulse Rate 65 Respiratory Rate 16 Blood Pressure 138/84 H Blood Pressure Mean 102 Pulse Ox 96 Oxygen Delivery Method Room Air MDM MDM MDM Narrative Medical decision making narrative: 68-year-old female presents for evaluation of tick bite. See physical exam. She is a rash that is consistent with erythema migrans. Patient denying any systemic symptoms. Patient will be treated with doxycycline 100 mg twice daily x 10 days for early localized infection. She was told to follow-up with her PCP. She confirmed understanding the plan. Return precautions explained. Impression: 1. Erythema migrans, early localized infection of Lyme disease 2. Tick bite Discharge Plan Triage Chief Complaint: Wound Check ED Provider: Andrei Guerra Dx/Rx/DC Orders Prescriptions: No Action escitalopram oxalate 10 mg tablet 20 mg PO DAILY albuterol sulfate 90 mcg/actuation HFA aerosol inhaler 2 puff inhalation Q4H PRN (Reason: shortness of breath or wheezing) Qty: 1 6RF Rx Instructions: administer with spacer magnesium 200 mg tablet 25 mg PO DAILY montelukast [Singulair] 10 mg tablet 10 mg PO DAILY Eliquis 5 mg tablet 5 mg PO BID Patient Comments: PT TO STOP 2 DAYS PRIOR- coenzyme Q10 200 mg capsule 200 mg PO DAILY Trelegy Ellipta 200-62.5-25 mcg blister with device 1 inh inhalation DAILY acyclovir 400 mg tablet 400 mg PO TID PRN (Reason: HSV) Rx Instructions: Take 1 tab three times a day up to a maximum of 5 days as needed Start david at first hint of typical perioral tingle/itch metoprolol succinate 50 mg tablet extended release 24 hr 50 mg PO DAILY Qty: 90 3RF alendronate 70 mg tablet 70 mg PO MO multivitamin Tablet 1 tab PO DAILY cholecalciferol (vitamin D3) [Vitamin D3] 25 mcg (1,000 unit) Capsule 25 mcg PO DAILY lisinopril 10 mg tablet 10 mg PO DAILY cyanocobalamin (vitamin B-12) [Vitamin B-12] 100 mcg tablet 100 mcg PO DAILY hydrocodone-acetaminophen 5-325 mg tablet 1 tab PO Q4H PRN PRN (Reason: Pain) 2 Days Qty: 15 0RF omeprazole 40 mg capsule,delayed release(DR/EC) 40 mg PO BID Qty: 180 0RF ursodiol 250 mg tablet 250 mg PO BID Qty: 60 11RF Primary Care Provider: July Newsome Referrals: July Newsome, [facility] [Primary Care Provider] - Print Language: Slovak
== END 2024-01-17 12:49 | disposition home or self-care (01) ==
PROVIDERS: Emergency Provider Surgery; PCP Nurse Practitioner Family; Visit Provider Surgery
DX: A26.0 Cutaneous erysipeloid (principal); A69.20 Lyme disease, unspecified; S80.262A Insect bite (nonvenomous), left knee, initial encounter; W57.XXXA Bitten or stung by nonvenomous insect and other nonvenomous arthropods, initial encounter; Z87.891 Personal history of nicotine dependence; Z86.718 Personal history of other venous thrombosis and embolism
CPT/HCPCS: 99282

== ENCOUNTER → 2024-05-18 | Outpatient (CLI) | payer MEDICARE, MEDICAID, SELFPAY ==
[2024-05-18 13:10] LABS: Absolute Neutrophil Count 2.9 X10^3/uL (2.0-7.7); Basophil# 0.07 X10^3/uL; Eosinophil# 0.15 X10^3/uL; Eosinophils% 2.1 % (0-5); Hematocrit 42.9 % (37-47); Hemoglobin 13.2 g/dL (12.0-15.0); Lymphocyte % 36.9 % (19-41); Mean Corp Hgb Conc 30.8 g/dL (32-36); Mean Corpuscular Hgb 25.3 pg (27.0-32.0); Mean Corpuscular Volume 82.3 fL (81-99); Mean Platelet Vol. 11.9 fl (6.2-12.0); Monocyte# 1.33 X10^3/uL; Monocyte% 18.9 % (0-10); NRBC Flagged by Analyzer 0 % (0-5); Neutrophil # 2.87 X10^3/uL (2.7-7.7); Neutrophil % 40.7 % (47-70); Platelet Count 269 K/mm3 (150-450); RBC Distribution Width CV 15.7 % (11.6-14.6); Red Blood Count 5.21 M/mm3 (4.2-5.4); White Blood Count 7.1 K/mm3 (4.4-11.0)
[2024-05-18 13:23] LABS: Hemoglobin A1c 5.8 % (3.8-5.6)
[2024-05-18 13:54] LABS: ALB/GLOB Ratio 0.8 RATIO (0.9-2.4); AST(SGOT) 19 U/L (15-37); Alanine Aminotransfer ALT/SGPT 15 U/L (13-56); Albumin, Serum 3.7 g/dL (3.2-5.0); Alkaline Phosphatase 91 U/L (45-117); Anion Gap 6 (5-15); BUN 14 mg/dL (7-18); BUN/Creat Ratio 16.1 RATIO (10-20); Calcium,Total 8.8 mg/dL (8.5-10.1); Chloride 106 mmol/L (98-107); Cholesterol 207 mg/dL (200); Creatinine, Serum 0.87 mg/dL (0.55-1.02); EST Glomerular Filtration Rate 69 mL/min (>60); Est Glom Filt Rate - Afr Amer 83 mL/min (>60); Globulin 4.5 g/dL (2.2-4.2); Glucose 94 mg/dL (74-106); High Density Lipoprotein 42 mg/dL; Potassium 4.4 mmol/L (3.5-5.1); Protein, Total 8.2 g/dL (6.4-8.2); Sodium Level 137 mmol/L (136-145); Triglycerides 271 mg/dL; Very Low Density Lipoprotein 54 mg/dL (5-40)
== END | disposition home or self-care (01) ==
PROVIDERS: PCP Nurse Practitioner Family; Visit Provider Family Medicine
DX: I10 Essential (primary) hypertension (principal); Z13.1 Encounter for screening for diabetes mellitus
CPT/HCPCS: 36415; 80053; 80061; 83036; 84443; 85025